=== PATIENT | male | born 1950 | race Caucasian/White ===

== ENCOUNTER 2023-06-24 14:20 | Outpatient (OUT) | payer MEDICARE, OTHER, SELFPAY ==
[2023-06-24 15:01] LABS: INR 1.12; Partial Thromboplastin Time 31.4 sec (22.3-36.2); Prothrombin Time 11.8 sec (9.0-11.6)
[2023-06-24 15:07] LABS: Basophils Absolute Auto 0.1 10^3/uL (0.0-0.1); Basophils Percent Auto 0.6 % (0.2-2.0); Eosinophils Absolute Auto 0.1 10^3/uL (0.0-0.7); Eosinophils Percent Auto 1.1 % (0.9-7.0); Hematocrit 51.2 % (42.0-54.0); Hemoglobin 16.9 g/dL (14.0-18.0); Immature Granulocytes Abs Auto 0.02 10^3/uL (0.00-0.03); Immature Granulocytes Pct Auto 0.2 % (0.0-0.5); Lymphocytes Absolute Auto 1.6 10^3/uL (1.2-3.8); Lymphocytes Percent Auto 18.3 % (20.5-60.0); Mean Corpuscular Hemoglobin 31.1 pg (25.9-34.0); Mean Corpuscular Volume 94.3 fL (80.0-94.0); Mean Platelet Volume 11.4 fL (9.5-13.5); Monocytes Absolute Auto 1.3 10^3/uL (0.3-0.8); Monocytes Percent Auto 14.2 % (1.7-12.0); Neutrophils Absolute Auto 5.9 10^3/uL (1.4-6.5); Neutrophils Percent Auto 65.6 % (43.0-75.0); Platelet Count 240 10^3/uL (150-450); Red Blood Count 5.43 10^6/uL (4.70-6.10); Red Cell Distribution Width 14.1 % (11.0-15.0)
[2023-06-24 15:25] LABS: Alanine Aminotransferase 23 U/L (16-63); Albumin Globulin Ratio 0.6; Albumin Level 3.1 g/dL (3.4-5.0); Alkaline Phosphatase 144 U/L (46-116); Aspartate Amino Transferase 25 U/L (15-37); BUN Creatinine Ratio 9.4; Bilirubin Total 1.2 mg/dL (0.2-1.0); Calcium 9.3 mg/dL (8.5-10.1); Chloride 95 mmol/L (98-107); Estimated GFR (African America >60 (>=60); Estimated GFR (Non-African Ame >60 (>=60); Globulin 4.8 g/dL; Glucose 67 mg/dL (74-106); Sodium 133 mmol/L (136-145); Total Protein 7.9 g/dL (6.4-8.2)
== END 2023-06-24 14:21 | disposition home or self-care (01) ==
LOC: LAB 14:26
PROVIDERS: PCP Internal Medicine; Visit Provider Internal Medicine
DX: K62.5 Hemorrhage of anus and rectum (principal); I10 Essential (primary) hypertension; E55.9 Vitamin D deficiency, unspecified
CPT/HCPCS: 36415; 80053; 82306; 85025; 85610; 85730

== ENCOUNTER 2023-07-01 07:39 | Outpatient (OUT) | payer MEDICARE, OTHER, SELFPAY ==
--- OUTSIDE RECORDS SUMMARY | 2023-07-01 07:42 | XMS_ITS | CCD ---
Author Name Unknown Address [address] [place] [address] Organization [facility] Care Team Providers Care Testing Projects Administrator Name Role Phone SHAIKH GALAN Attending Unavailable TRISTEN FUCHS Unavailable Encounters Encounter Date Encounter Type Care Provider Facility Start: 06-24-2023 End: 06-24-2023 ambulatory SHAIKH ANGELIA Not Available Start: 04-29-2023 End: 04-29-2023 ambulatory TRISTEN FUCHS Not Available Payers Date Payer Category Payer Unknown [id number] 2015 Medicare [id number] 1950 Unknown [id number] 2.16.84 [id number] 1950 Unknown [id number] Summary Purpose Family History No Family History Records Found Advance Directives No Advanced Directives Records Found Additional Source Comments (unrecognized sect ion and content) No Status Records Found INFORMATION SOURCE (unrecogn ized section and content) DATE CREATED AUTHOR 06/25/2023 [facility] EPIC FOR RECORDS PERTAINING TO PATIENTS WHO ARE OR HAVE BEEN ENROLLED IN A CHEMICAL DEPENDENCY/SUBSTANCEABUSE PROGRAM, SOME INFORMATION MAY BE OMITTED. This clinical summary was aggregated from multiple sources. Caution should be exercised in using it in the provision of clinical care. This summary normalizes information from multiple sources, and as a consequence, information in this document may materially change the coding, format and clinical context of patient data. In addition, data may be omitted in some cases. CLINICAL DECISIONS SHOULD BE BASED ON THE PRIMARY CLINICAL RECORDS. [facility] [employer] provides no warranty or guarantee of the accuracy or completeness of information in this document.
--- NOTE | 2023-07-01 07:48 | US_ITS ---
The [address] [address] Patient Name: RHODA RIVAS MRN: [id number] date: 1950 Sex: M Assigned Patient Location: US Current Patient Location: US Accession/Order Number: [id number] Exam Date: 07/01/2023 07:50 Report Date: 07/01/2023 09:02 At the request of: SHAIKH ANGELIA Procedure: US right upper quadrant EXAM: US right upper quadrant HISTORY: . Alcoholic Cirrhosis Of Liver K70.30 . COMPARISON: None. TECHNIQUE: Grayscale and color imaging was performed FINDINGS: The pancreas is grossly unremarkable. Scanning of the liver demonstrates heterogeneity of echotexture of the liver. There is slight nodularity of the liver surface. The liver is normal in size. Color-flow is noted in the portal and hepatic veins. Within the right lobe the liver there is a 2.7 x 1.3 x 0.8 cm hyperechoic focus with shadowing most consistent with a calcification. The gallbladder appears normal with no stones or sludge identified. No gallbladder wall thickening is noted. Common bile duct measures 3 mm. Right kidney measures 10.1 x 5 x 4.5 cm no solid renal cortical masses or hydronephrosis is noted. No fluid is noted in the right upper quadrant. US/US right upper quadrant IMPRESSION: 1. Liver is heterogeneous in its echotexture and there is slight nodularity of the liver surface suggesting diffuse hepatocellular disease such as cirrhosis. There is a 2.7 x 0.8 cm hyperechoic area in the right lobe liver with shadowing most consistent with a calcification. 2. The remainder of the right upper quadrant was unremarkable. Electronically authenticated by: DEYVI SANTIAGO Date: 07/01/2023 09:02
== END 2023-07-01 07:40 | disposition home or self-care (01) ==
LOC: US 07:39
PROVIDERS: PCP Internal Medicine; Visit Provider Internal Medicine
DX: K70.30 Alcoholic cirrhosis of liver without ascites (principal)
CPT/HCPCS: 76705

== ENCOUNTER 2023-08-19 14:36 | Outpatient (OUT) | payer MEDICARE, OTHER, SELFPAY ==
[2023-08-19 15:22] LABS: Anion Gap 8.7; Calcium 8.8 mg/dL (8.5-10.1); Chloride 98 mmol/L (98-107); Estimated GFR (African America >60 (>=60); Estimated GFR (Non-African Ame >60 (>=60); Glucose 85 mg/dL (74-106); Potassium 3.7 mmol/L (3.5-5.1); Sodium 135 mmol/L (136-145)
== END 2023-08-19 14:37 | disposition home or self-care (01) ==
LOC: LAB 14:37
PROVIDERS: PCP Internal Medicine; Visit Provider Internal Medicine
DX: E87.6 Hypokalemia (principal)
CPT/HCPCS: 36415; 80048

== ENCOUNTER 2024-01-19 12:31 | Outpatient (OUT) | payer MEDICARE, OTHER, SELFPAY ==
--- OUTSIDE RECORDS SUMMARY | 2024-01-19 12:51 | XMS_ITS | CCD ---
Author Organization [facility] Care Team Providers Care Quality Assurance Supervisor Name Role Phone MD Ean Whaley Attending Provider NON STAFF Primary Care Provider Unavailabl e NON STAFF Primary Care Unavailable Ena Whaley Attending Unavailable Ena Whaley Admitting Unavailable SHAIKH GALAN Attending Unavailable TRISTEN FUCHS Attending Unavailable TRISTEN FUCHS Attending Unavailable SHAIKH GALAN Attending Unavailable SHAIKH GALAN Attending Unavailable TRISTEN FUCHS Attending Unavailable Medications Current Medications Medication Drug Class(es) Dates Sig (Normalized) Sig (Original) ergocalciferol 1.25 mg oral capsule (1 source) Provitamin D2 Compound Start: 08-26-2023 take 1250 ug by mouth once daily Ergocalciferol (Vitamin D2) Active 1250 MCG PO Daily August 26, 2023 12:00am hydroCHLOROthiazide 25 mg / valsartan 320 mg oral tablet (1 source) Thiazide Diuretic, Angiotensin 2 Receptor Ortega Start: 08-26-2023 take 1 tablet by mouth once daily Valsartan-Hydrochl orothiazide Active 1 TAB PO Daily August 26, 2023 12:00am spironolactone 25 mg oral tablet (1 source) Aldosterone Antagonist Start: 08-26-2023 take 25 mg by mouth once daily Spironolactone Active 25 MG PO Daily August 26, 2023 12:00am Results Test Name Value Interpretation Reference Range Facil kevon Joey 08-26-2023 L Specimen: [id number] Received: 08/26/23 Status: JEFF Hamilton Num: [id number] Spec Type: Surgical Subm Dr: Ena Whaley MD Tissues: A Colon Biopsy (TRANSV POLYP) B Colon Biopsy (DESC POLYP) C Colon Biopsy (SIGMOID POLYP) Procedures: HE/6, Gross/Micro L4/3 Age/ Patient Sex Location Account Attending Physician Rhoda Rivas 73/M [id number] Ena Whaley MD SPEC NUM: RECD: 08/26/23 STATUS: JEFF HAMILTON NUM: [id number] ASIA: 08/26/23- SUBM DR: Ena Whaely MD ENTERED: 08/26/[address] [facility] DR: SPEC TYPE: Surgical DEPT: S ORDERED: HE/6, Gross/Micro L4/3 ORDERED: HE/6, Gross/Micro L4/3 Pathological Diagnosis A, transverse colon polyp biopsy removal: -Multiple fragments of tubular adenoma without high-grade dysplasia B, descending colon polyp biopsy: -Tubular adenoma in at least 1 larger fragment C, sigmoid polyps biopsies: -Small hyperplastic polyp(s) of the early serrated glandular type in at least 2 fragments Clinical Information Colon polyps Gross Description A. Received in formalin labeled with the patient's name, date of and transverse polyp are multiple looney tissues admixed with fecal material, measuring 2.2 x 0.7 x 0.4 cm in aggregate. Entirely submitted in one cassette labeled A1. B. Received in formalin labeled with the patient's name, date of and descending polyp are two looney tissues measuring 0.2 cm and 0.5 x 0.3 x 0.2 cm. Entirely submitted in one cassette labeled B1. ---- Specimen: Received: 08/26/23 Status: JEFF Hamilton Num: [id number] Spec Type: Surgical Subm Dr: Ena Whaley MD Tissues: A Colon Biopsy (TRANSV POLYP) B Colon Biopsy (DESC POLYP) C Colon Biopsy (SIGMOID POLYP) Procedures: HE/6, Gross/Micro L4/3 ---- Patient: Rhoda Rivas [id number] (Continued) ---- Specimen: [id number] Received: 08/26/23 (Continued) Gross Description (Continued) Signed (signature on file) Evans Hart MD 08/27/231802 ---- Specimen: [id number] Received: 08/26/23 Status: JEFF Villasenor Num: [id number] Spec Type: Surgical Subm Dr: Ena Whaley MD Tissues: A Colon Biopsy (TRANSV POLYP) B Colon Biopsy (DESC POLYP) C Colon Biopsy (SIGMOID POLYP) Procedures: HE/6Marisol/Carol L4/3 ---- Patient: Rhoda Rivas [id number] (Continued) ---- Specimen: [id number] Received: 08/26/23 (Continued) Gross Description (Continued) C. Received in formalin labeled with the patient's name, date of and sigmoid polyps (three) are three looney tissues ranging from 0.3 x 0.3 x 0.1 cm to 0.4 x 0.3 x 0.1 cm. Entirely submitted in one cassette labeled C1. CPT Codes 20940b3 ---- ---- Specimen: [id number] Received: 08/26/23 Status: JEFF Hamilton Num: [id number] Spec Type: Surgical Subm Dr: Ena Whaley MD Tissues: A Colon Biopsy (TRANSV POLYP) B Colon Biopsy (DESC POLYP) C Colon Biopsy (SIGMOID POLYP) Procedures: HE/6, Gross/Micro L4/3 ---- Patient: Rhoda Rivas [id number] (Continued) ---- Signed (signature on file) Evans Hart MD 08/27/23 180 [facility] Vital Signs Date Time Vital Sign Value Performing Clinician Faci edmundoy 08-26-2023 11:12-0400 Diastolic blood pressure 70 mm[Hg] MD Ena Whaley Work Phone: [facility] 08-26-2023 11:12-0400 Heart rate 67 /min MD Ena Whaley Work Phone: [facility] 08-26-2023 11:12-0400 Respiratory rate 18 /min MD Ena Whaley Work Phone: [facility] 08-26-2023 11:12-0400 SaO2% (BldA) [Mass fraction] 98 % MD Ena Whaley Work Phone: [facility] 08-26-2023 11:12-0400 Systolic blood pressure 149 mm[Hg] MD Ena Whaley Work Phone: [facility] 08-26-2023 08:35-0400 Body height 190.5 cm MD Ena Whaley Work Phone: [facility] 08-26-2023 08:35-0400 Body weight 133.8 kg MD Ena Whaley Work Phone: [facility] Encounters Encounter Date Encounter Type Care Provider Facility Start: 11-18-2023 End: 11-18-2023 ambulatory TRISTEN FUCHS Not Available Start: 10-22-2023 End: 10-22-2023 ambulatory TEIXEIRA FAWWAD Not Available Start: 08-26-2023 End: 08-26-2023 ambulatory NON STAFF Facility:[facility] Start: 08-26-2023 Non-patient / Non-visit MD Ena Whaley Work Phone: [facility] Physician [facility] Work Phone: Start: 08-26-2023 End: 08-26-2023 Admission to same day surgery center MD Ena Whaley Work Phone: [facility] Work Phone: Start: 08-26-2023 End: 08-26-2023 ambulatory NON STAFF [facility] Work Phone: Start: 08-18-2023 End: 08-18-2023 ambulatory SHAIKH WARREND Not Available Start: 08-05-2023 End: 08-05-2023 ambulatory TRISTEN FUCHS Not Available Start: 07-22-2023 Non-patient / Non-visit MD Ena Whaley Work Phone: [facility] Physician [facility] Work Phone: Start: 07-16-2023 Non-patient / Non-visit MD Ena Whaley Work Phone: [facility] Physician [facility] G[facility] Work Phone: Start: 06-24-2023 End: 06-24-2023 ambulatory TEIXEIRA FAWWAD Not Available Start: 04-29-2023 End: 04-29-2023 ambulatory TRISTEN FUCHS Not Available Procedures Date Procedure Procedure Detail Performing Clinician Start: 08-26-2023 Colonoscopy MD Ena durand Work Phone: Plan of Treatment Date Care Activity Detail Author Start: 08-26-2023 [facility] Patient Education Colon polyps H emorrhoids (DC) Diverticulosis (DC) [facility] Work Phone: Payers Date Payer Category Payer Self-pay 2021 Unknown [id number] 2015 Medicare [id number] [facility] [id number] 1950 Unknown [id number] 2.16.84 [id number] 1950 Unknown [id number] 2.16.84 [id number] 1950 Unknown [id number] 2.16.84 [id number] 1950 Unknown [id number] 2.16.84 [id number] 1950 Unknown [id number] 2.16.84 [id number] 1950 Unknown [id number] Unknown [id number] 2.16.8 [id number] Social History Date Type Detail Facility Start: 08-26-2023 Tobacco smoking stat [facility] Smoker (finding) [facility] Start: 1950 Sex Assigned At Male F [facility] Goals Date Patient Goal Desired Activity /State Procedure note 08-26-2023 Note Date & Type Note Facility 08-26-2023 Procedure note [facility] Evaluation note Note Date & Type Note Facility Evaluation note No assessment information availa ble [facility] Work Phone: History and physical note Note Date & Type Note Facility History and physical note Note Date/Time August 26, 2023 10:09am [facility] [address] [place] [address] Gastroenterology H&P Signed Patient: Rhoda Rivas MR#: [id number] : 1950 Acct:[id number] Age/Sex: 73 / M Adm Date: 4 Loc: Room: Type: [facility] Attending Dr: Ena Whaley MD Copies to: NON STAFF Ena Whaley MD~ Date of Service: 08/26/2023 HISTORY & PHYSICAL: Patient's history with special attention to the cardiovascular, pulmonary systems and the current problem was reviewed with the patient immediately prior to the procedure. Present medications and doses reviewed in the EMR. Allergies and pertinent laboratory tests were also reviewedat this time in the EMR. The physical examination, as below, was then performed. Indication, assessment and HPI: 73-year-old man with history of colonic polyps here for surveillance colonoscopy Family history of GI malignancy? No PHYSICAL EXAMINATION Mouth and Pharynx : Moist mucus membranes, normal dentition Cardiac: Regular rate, regular rhythm Pulmonary: Clear to auscultation bilaterally, no wheezing Neurological: Alert and oriented x3, no focal deficits noted Abdomen: Abdomen soft, non-tender REVIEW OF SYSTEMS Constitutional: Denies malaise, fevers Cardiovascular: Denies chest pain, palpitations Respiratory: Denies shortness of breath, wheezing Gastrointestinal: Per HPI Genitourinary: Denies dysuria, polyuria Musculoskeletal: Denies joint swelling, joint stiffness Neurological: Denies numbness, tingling Integumentary: Denies rashes, skin lesions Endocrine: Denies fatigue, weight loss Written informed consent obtained from the patient. Risks (including but not limited to perforation, infection, bloating, bleeding, need for emergent surgeryand loss of life), benefits and alternatives explained and questions answered. The patient verbalized understanding. Based on history patient is an appropriate candidate for the procedure. Ena Whaley M.D. Documented By: Ena Whaley MD 08/26/23 0959 Signed By: <Electronically signed by Ena Whaley MD> 08/26/23 1009 [facility] Work Phone: Hospital Discharge instructions Note Date & Type Note Facility Hospital Discharge instructions Additional Instructions DISCHARGE INSTRUCTIONS FOR COLONOSCOPY WHAT TO EXPECT: - You may feel full, gassy or cramping after your procedure. In some cases, this may be from a few hours to a day. Walking may help relieve the discomfort. - If you have polyp(s) removed you may note some minor bloody discharge after your first bowel movements. - You should begin to recover from anesthesia within 1 hour of the procedure, however may feel groggy for the next 24 hours. DO's AND DON'Ts: - Call your doctor right away if you have a hard abdomen, severe pain, are passing lots of bright red blood or clots. - Call your doctor if you develop any rashes, hives or difficulty breathing. - Let your doctor know if you have not had a bowel movement by 3 days after your procedure. - If you take 81 mg aspirin for your heart it is safe to resume this medication. - If you take other blood thinner medications your doctor will instruct you when these can safely be resumed. - Do NOT drive for 24 hours. - Do NOT operate machinery such as power tools, lawn mowers, snow blowers, sewing machines, etc. for 24 hours. - Avoid alcoholic beverages and drugs for allergies, nerves, or sleep. - Do NOT stay alone. Do NOT leave your child unattended. - Do NOT make important personal or business decisions or sign any legal documents. - Eat solid foods and drink liquids in smaller amounts than usual until normal appetite returns. If you should experience an upset stomach, liquids high in sugar content (soda, Boby-Aid, non-acid juices) are recommended. - You can resume normal activities tomorrow. FOLLOW UP & RECOMMENDATIONS: -Notify the doctor if you have any problems. -Repeat colonoscopy in 3 years. -Follow up with PCP. -Office number [phone]. [facility] Work Phone: Chief Complaint and Reason for Visit Chief Complaint Amb Documentation hx of colon polyps hx of colon polyps Family History No Family History Records Found Relationship Condition Age at Onset Recorded Date/T farzana sister Diabetes mellitus Unknown Hypertension Unknown father Malignant neoplasm of lung Unknown Not Specified Hypertension Unknown Advance Directives No Advanced Directives Records Found Advance Directive Response Recorded Date/ Time Advance Directives No July 2:44pm Summary Purpose Additional Source Comments Care Teams (unrecognized sec tion and content) Team Status: Active Member Role Status Dates NON STAFF Primary Care Provider Active Team Status: Active Member Role Status Dates Ena Whaley MD Attending Provider Active Start: July 16, 2023 Team Status: Active Member Role Status Dates Sofía Kylah Attending Provider Active Start : July 22, 2023 Team Status: Inactive Member Role Status Dates Ena Whaley MD Attending Provider Active Start: August 26, 2023 End: August 26, 2023 NON STAFF Primary Care Provider Active Start: August 26, 2023 End: August 26, 2023 Team Status: Active Member Role Status Dates Ena Whaley MD Attending Provider, Other Provider Act hailey Start: August 26, 2023 NON STAFF Primary Care Provider Active Start: August 26, 2023 (unrecognized sect ion and content) No Status Records FoundNo Status Records Found INFORMATION SOURCE (unrecogn ized section and content) DATE CREATED AUTHOR 08/29/2023 [facility] DATE CREATED AUTHOR MELY YIP 11/20/2023 [facility] EPIC FOR RECORDS PERTAINING TO PATIENTS [...] BE BASED ON THE PRIMARY CLINICAL RECORDS. [facility] [employer] provides no warranty or guarantee of the accuracy or completeness of information in this document.
[2024-01-19 16:00] LABS: Chloride 100 mmol/L (98-107); Glucose 78 mg/dL (74-106); Potassium 4.2 mmol/L (3.5-5.1); Sodium 135 mmol/L (136-145)
[2024-01-19 16:01] LABS: Alanine Aminotransferase 24 U/L (16-63); Albumin Globulin Ratio 0.7; Albumin Level 3.1 g/dL (3.4-5.0); Alkaline Phosphatase 128 U/L (46-116); Aspartate Amino Transferase 28 U/L (15-37); BUN Creatinine Ratio 12.4; Bilirubin Total 1.3 mg/dL (0.2-1.0); Calcium 9.1 mg/dL (8.5-10.1); Estimated GFR (African America >60 (>=60); Estimated GFR (Non-African Ame >60 (>=60); Globulin 4.3 g/dL; Total Protein 7.4 g/dL (6.4-8.2)
[2024-01-19 16:12] LABS: Carbon Dioxide 30.2 mmol/L (21.0-32.0)
== END 2024-01-19 12:32 | disposition home or self-care (01) ==
LOC: LAB 12:33
PROVIDERS: PCP Internal Medicine; Visit Provider Internal Medicine
DX: E87.6 Hypokalemia (principal); I10 Essential (primary) hypertension; K70.30 Alcoholic cirrhosis of liver without ascites
CPT/HCPCS: 36415; 80053

== ENCOUNTER 2025-02-25 09:41 | Outpatient (OUT) | payer MEDICARE, OTHER, SELFPAY ==
--- OUTSIDE RECORDS SUMMARY | 2025-02-25 09:49 | XMS_ITS | Encounter Summary ---
Author Organization [facility] Address [address] [place] [address] Care Team Providers Care Environmental Health Nurse Name Role Phone Shaikh ELOY Rosen Primary Care Provider [phone] Jose Raul Valenzuela MD Primary Care Provider [phone] Ale Cam MONEY ROOM SUPERVISOR Unavailable Reason for Visit * Reason Comments Med Refill Encounter Details Date Type Department Care Team (Late Contact Info) Description 08/18/2023 Refill [facility] [address] [place] [address] Shaikh Rosen MD [address] [place] [address] Primary hypertension ; Alcoholic cirrhosis of liver without ascites (HCC) Social History Tobacco Use Types Packs/Day Years Used Date Smoking Tobacco: Every Day Cigarettes 1 45 Passive Smoke Exposure: Current Smokeless Tobacco: Never Alcohol Use Standard Drinks/Week Comments Yes 21 (1 standard drink = 0.6 oz pu re alcohol) daily PHQ-2 Answer Date Recorded Patient Health Questionnaire-2 Score 0 06/24/2023 Sex and Gender Information Value Date Recorded Sex Assigned at Not on file Legal Sex Male 3:50 PM EDT Gender Identity Not on file Sexual Orientation Not on file documented as of this encounter Plan of Treatment Upcoming Encounters Date Type Department Care Team (Late Contact Info) Description 04/05/2025 1:15 PM EST Procedure Visit [facility] [address] [place] [address] Chapin Roman, DPM [address] [place], [place] [phone] documented as of this encounter Visit Diagnoses Diagnosis Primary hypertension Unspecified essential hypertension Alcoholic cirrhosis of liver without ascites (HCC) documented in this encounter Care Teams Environmental Health Nurse Relationship Specialty Start Date End Date Shaikh Rosen MD [address] [place] [phone] PCP - General Internal Medicine 06/24/23 01/04/24 Jose Raul Valenzuela MD [address] [place] [place] [phone] PCP - General Family Medicine 01/05/24 11/30/24 Ale Cam NP [address] [place] [place] [phone] Nurse Practitioner Family Medicine 01/05/24 11/30/24 documented as of this encounter
--- OUTSIDE RECORDS SUMMARY | 2025-02-25 09:49 | XMS_ITS | Encounter Summary ---
Author Organization [facility] Address [address] [place] [address] Care Team Providers Care Carpet Sewer Name Role Phone Shaikh ELOY Rosen Primary Care Provider [phone] Jose Raul Valenzuela MD Primary Care Provider [phone] Ale Cam PRECISION GRINDER Unavailable [phone] Encounter Details Date Type Department Care Team (Late st Contact Info) Description 07/01/2023 Clinisync Result Encounter [facility] External Department Unsolicited Shaikh Rosen MD [address] [place] [address] Social History Tobacco Use Types Packs/Day Years Used Date Smoking Tobacco: Every Day Cigarettes 1 45 Smokeless Tobacco: Never Alcohol Use Standard Drinks/Week [...] Encounters Date Type Department Care Team (Late st Contact Info) Description 04/05/2025 1:15 PM EST Procedure Visit [facility] [address] [place] [phone] Chapin Roman DPM [address] [place], [place] [id number] documented as of this encounter Procedures Procedure Name Priority Date/Time Associated Diagnosis Comments US RIGHT UPPER QUADRANT 07/01/2023 9:02 AM EST documented in this encounter Results * US RIGHT UPPER QUADRANT (07/01/2023 9:02 AM EST) Anatomical Region Laterality Modality Other 07/01/2023 9:02 AM EST Narrative 07/01/2023 9:05 [place] [address] Ultrasound Report Signed Patient: GLENN RIVAS MR#: [id number] : 1950 Acct:[id number] Age/Sex: 73 / M ADM Date: 07/01/23 Loc: US Attending Dr: Shaikh Silas Moratyaa Ordering Physician: Shaikh Hood Rosen Date of Service: 07/01/23 Procedure(s): US right upper quadrant Accession Number(s): [id number] cc: Shaikh Hood Rosen [place] [address] Patient Name: GLENN RIVAS MRN: [id number] date: 1950 Sex: M Assigned Patient Location: US Current Patient Location: Accession/Order Number: [id number] Exam Date: 07/01/2023 07:50 Report Date: 07/01/2023 09:02 At the request of: SHAIKH SILAS Procedure: US right upper quadrant EXAM: US right upper quadrant HISTORY: . Alcoholic Cirrhosis Of Liver K70.30 . COMPARISON: None. TECHNIQUE: Grayscale and color imaging was performed FINDINGS: The pancreas is grossly unremarkable. Scanning of the liver demonstrates heterogeneity of echotexture of the liver. There is slight nodularity of the liver surface. The liver is normal in size. Color-flow is noted in the portal and hepatic veins. Within the right lobe the liver there is a 2.7 x 1.3 x 0.8 cm hyperechoic focus with shadowing most consistent with a calcification. The gallbladder appears normal with no stones or sludge identified. No gallbladder wall thickening is noted. Common bile duct measures 3 mm. Right kidney measures 10.1 x 5 x 4.5 cm no solid renal cortical masses or hydronephrosis is noted. No fluid is noted in the right upper quadrant. US/US right upper quadrant IMPRESSION: 1. Liver is heterogeneous in its echotexture and there is slight nodularity of the liver surface suggesting diffuse hepatocellular disease such as cirrhosis. There is a 2.7 x 0.8 cm hyperechoic area in the right lobe liver with shadowing most consistent with a calcification. 2. The remainder of the right upper quadrant was unremarkable. Electronically authenticated by: DEYVI BALLARD Date: 07/01/2023 09:02 Dictated By: Deyvi Ballard M.D. Signed By: 07/01/23904 DD/ 1 TD/TT: Tavern Car Attendant: Procedure Note Radiology, Radiologist, - 07/01/2023 [place] [address] Ultrasound Report Signed Patient: GLENN RIVAS JMR#: [id number] : 1950cct:[id number] Age/Sex: 73 / MADM Date: 07/01/23 Loc: US Attending Dr: Shaikh Silas Morataya Ordering Physician: Shaikh Hood Rosen Date of Service: 07/01/23 Procedure(s): US right upper quadrant Accession Number(s): [id number] cc: Shaikh Hood Rosen [place] [address] Patient Name: GLENN RIVAS MRN: [id number] date: 1950 Sex: M Assigned Patient Location: US Current Patient Location: US Accession/Order Number: [id number] Exam Date: 07/01/2023 07:50 Report Date: 07/01/2023 09:02 At the request of: SHAIKH SILAS Procedure: US right upper quadrant EXAM: US right upper quadrant HISTORY: . Alcoholic Cirrhosis Of Liver K70.30 . COMPARISON: None. TECHNIQUE: Grayscale and color imaging was performed FINDINGS: The pancreas is grossly unremarkable. Scanning of the liver demonstrates heterogeneity of echotexture of theliver. There is slight nodularity of the liver surface. The liver is normal insize. Color-flow is noted in the portal and hepatic veins. Within the right lobethe liver there is a 2.7 x 1.3 x 0.8 cm hyperechoic focus with shadowing most consistent with a calcification. The gallbladder appears normal with no stones or sludge identified. No gallbladder wall thickening is noted. Common bile duct measures 3 mm. Right kidney measures 10.1 x 5 x 4.5 cm no solid renal cortical masses or hydronephrosis is noted. No fluid is noted in the right upper quadrant. US/US right upper quadrant IMPRESSION: 1. Liver is heterogeneous in its echotexture and there is slightnodularity of the liver surface suggesting diffuse hepatocellular disease such ascirrhosis. There is a 2.7 x 0.8 cm hyperechoic area in the right lobe liver with shadowing most consistent with a calcification. 2. The remainder of the right upper quadrant was unremarkable. Electronically authenticated by: DEYVI BALLARD Date: 07/01/2023 09:02 Dictated By: Deyvi Ballard M.D. Signed By:07/01/23904 DD/ 1 TD/TT: Tavern Car Attendant: Shaikh Silas [facility] Final Result documented in this encounter Visit Diagnoses Not on filedocumented in this encounter Care Teams Carpet Sewer Relationship Specialty Start Date End Date Shaikh Rosen MD [address] [place] [address] PCP - General Internal Medicine 06/24/23 01/04/24 Jose Raul Valenzuela MD [address] [place] [address] PCP - General Family Medicine 01/05/24 11/30/24 Ale Cma NP [address] [place] [address] Nurse Practitioner Family Medicine 01/05/24 11/30/24 documented as of this encounter
--- OUTSIDE RECORDS SUMMARY | 2025-02-25 09:49 | XMS_ITS | Clinical Summary ---
Author Organization [facility] Address [address] [place] [address] Care Team Providers Care Sheet Heater Helper Name Role Phone Unavailable Primary Care Provider Unavailabl e Allergies No known active allergies Medications albuterol HFA (Ventolin HFA) 90 mcg/act inhalerIndication s:Wheezing Inhale 2 puffs every 4 (four) hours if needed for wheezing 18 g 11 5 01/14/20 26 Active amLODIPine (Norvasc) 5 MG tabletIndications :Primary hypertension Take 1 tablet (5 mg) by mouth Daily 90 tablet 1 5 Active calcitriol (Rocaltrol) 0.25 MCG capsuleIndication s:Vitamin D deficiency,Alcoho l use disorder Take 1 capsule (0.25 mcg) by mouth Daily 90 capsule 2 5 Active cyanocobalamin (Vitamin B-12) 50 MCG tabletIndications :Alcohol use disorder Take 1 tablet (50 mcg) by mouth Daily 90 tablet 2 5 Active spironolactone (Aldactone) 50 MG tabletIndications :Primary hypertension,Alco holic cirrhosis of liver without ascites (HCC) Take 1 tablet (50 mg) by mouth Daily 90 tablet 1 5 Active potassium chloride CR (Klor-Con M10) 10 MEQ ER tabletIndications :Hypokalemia Take 1 tablet (10 mEq) by mouth Daily Do not crush or chew. 90 tablet 1 5 Active furosemide (Lasix) 20 MG tabletIndications :Primary hypertension,Alco holic cirrhosis of liver without ascites (HCC) Take 1 tablet (20 mg) by mouth Daily 90 tablet 1 5 Active Active Problems Problem Noted Date Diagnosed Date Suspected chronic obstructiv e pulmonary disease based on initial evaluation 04/22/2024 Assessment & Plan (04/22/2024 2:02 PM EST): Current 1 ppd smoker Has been smoking for 60 years. Has never had PFT's or Low dose CT scan. Not interested at this time. Expiratory wheezes noted on assessment Likely has COPD or Emphysema- will order PRN Albuterol at this time. Pt declines routine daily maintenance inhaler such as LABA+ICS or LAMA +ICS. Discussed with pt if he is requiring rescue inhaler frequently more than twice per week to please let me know. Low back strain 01/24/2024 Assessment & Plan (01/24/2024 9:04 AM EDT): Pulled muscle in lower lumbar region of back recently, carrying cases of water into the house. Denies: Loss of bowel or bladder Numbness/tingling Loss of sensation Declines imaging or further testing at this time. Conservative measures currently. Careful consideration for medication management d/t alcohol use. Pt declines med management at this time. Requests temporary handicap placard. Given RX for temporary card, less than 6 months. Hypokalemia 08/18/2023 Assessment & Plan (01/22/2024 1:33 PM EDT): 4.2 on lab work form 01/19/24 Continue Potassium as ordered. Assessment & Plan (08/18/2023 1:46 PM EDT): Potassium 3.0 --> added aldactone. Recheck BMP HTN (hypertension) 06/24/2023 Assessment & Plan (04/22/2024 1:47 PM EST): Currently taking amlodipine Spironolactone Lasix Does not Check BP at home; BP is good in the office today. Denies orthostatic changes, dizziness, cough, shortness of breath, swelling in extremities. Continue current regimen. Given BP log, advised pt to record BP and bring log back with them to next visit. Assessment & Plan (01/22/2024 1:32 PM EDT): looks good today in the office. Taking Amlodipine 5mg Spironlactone 50mg Lasix 20mg Denies orthostatic changes Denies edema to extremities Continue current regimen Assessment & Plan (10/22/2023 3:29 PM EDT): At goal. Discontinue Valsartan/HCTZ Start on low dose amlodipine/aldactone and lasix Follow up with home BP log. CMP in one month Assessment & Plan (08/18/2023 1:44 PM EDT): Hx of HTN - diagnosed over 20 years ago. Does not check his blood pressure at home. On average less than 140/80 Above goal in office today. Tolerating Anti hypertensive w/o adverse effects. Denies lightheadedness, dizziness, syncope, presyncope. Patient encouraged to continue with home BP monitoring and call office if he experiences orthostatic symptoms or persistently elevated BP. C/w valsartan/hydrochlorothiazide for now as he has over 90 day supply of it. Will add Aldactone to help with HTN and LE edema due to hx of liver cirrhosis Assessment & Plan (06/24/2023 1:33 PM EST): Hx of HTN - diagnosed over 20 years ago. Does not check his blood pressure at home. On average less than 140/80 Tolerating Anti hypertensive w/o adverse effects. Denies lightheadedness, dizziness, syncope, presyncope. Patient encouraged to continue with home BP monitoring and call office if he experiences orthostatic symptoms or persistently elevated BP. Will order CBC, CMP to ensure electrolytes and renal function is stable. C/w valsartan/hydrochlorothiazide as before for now. Encounter to establish care with new doctor 06/03 Assessment & Plan (06/24/2023 2:11 PM EST): New Patient, here to establish care. Reviewed medical, surgical and social hx. No old records available to review. Reviewed and updated medication list. He moved from [place] to be close to his family. He used to work in [employer] in [place]. Patient is experiencing/reporting bright red blood per rectum x 3 days now. Addressed separately. Alcohol use disorder 06/24/2023 Assessment & Plan (01/24/2024 8:54 AM EDT): Is currently still drinking; 3 drinks, 3-4 ounces per day; Drinks Vodka mixed with cranberry juice or Powerade. Declines interest ion quitting at this time. Educated on hazardous health effects of chronic health issues. Assessment & Plan (10/22/2023 3:28 PM EDT): Patient drinks alcohol daily. Usually hard liquor. Previously drank at least 12 oz daily. Now down to 10 oz. Slowly trying to cut down drinking due to risk of withdrawal. Encouraged to quit alcohol due to hx of Liver cirrhosis. Assessment & Plan (08/18/2023 1:45 PM EDT): Patient drinks alcohol daily. Usually hard liquor. Drinks at least 12 oz daily. Never had a DUI. Drinks at home. Now that he knows he has liver cirrhosis, he is thinking about quitting. He was reminded that he should slowly cut down drinking or he would have severe withdrawal from alcohol cessation. Assessment & Plan (06/24/2023 2:01 PM EST): Patient drinks alcohol daily. Usually hard liquor. Drinks at least 12 oz daily. Never had a DUI. Drinks at home. Not really interested in quitting. He does not think his drinking is a concern or something he will change about himself. Recommended cutting down alcohol use to the patient. Bright red blood per rectum 06/24/2023 Assessment & Plan (06/24/2023 2:00 PM EST): Reports bright red blood started 3 days ago when he strained hard during defecation. He reports seeing blood when he wipes after passing stool. It gradually improving,resolving. No prior hx of similar episode. Exam concerning for internal hemorrhoids. Will call in hydrocortisone suppository for when his symptoms recurred. Check CBC, CMP, PT INR, PTT. Refer to General Surgery. Vitamin D deficiency 06/24/2023 Assessment & Plan (01/24/2024 8:55 AM EDT): On vitamin D supplementation. Levels stable 6 months ago on last recheck. Assessment & Plan (06/24/2023 2:00 PM EST): On Vitamin D Supplementation Check Levels. Psoriasis (a type of skin inflammation) 06/24/19 Assessment & Plan (06/24/2023 2:02 PM EST): Hx of psoriasis with plaques noted over elbows, hand knuckles, left side of lower back. Not on any medication. Skin is very dry overall. Obtain records. Alcoholic cirrhosis of liver without ascites Assessment & Plan (04/22/2024 1:46 PM EST): Is currently still drinking; States he has only drank 3-4 times this month. Is starting to decrease intake. Drinks Vodka mixed with cranberry juice or Powerade. Declines interest ion quitting at this time. Educated on hazardous health effects of chronic health issues. Assessment & Plan (01/22/2024 1:32 PM EDT): Is currently still drinking; 3 drinks, 3-4 ounces per day; Drinks Vodka mixed with cranberry juice or Powerade. Declines interest ion quitting at this time. Educated on hazardous health effects of chronic health issues. Assessment & Plan (10/22/2023 3:25 PM EDT): Chronic alcohol abuse. Noted to have gynecomastia, abdominal obesity with dilated veins visible concerning for underlying portal hypertension. US c/w liver cirrhosis. Was seen by GI. Start on aldactone/lasix for volume control. discontinue hydrochlorothiazide and valsartan. Assessment & Plan (08/18/2023 1:44 PM EDT): Chronic alcohol abuse. Noted to have gynecomastia, abdominal obesity with dilated veins visible concerning for underlying portal hypertension. US c/w liver cirrhosis. Has an appt with GI Started on aldactone. Educated on alcohol cessation/abuse. Assessment & Plan (06/24/2023 2:01 PM EST): Chronic alcohol abuse. Noted to have gynecomastia, abdominal obesity with dilated veins visible concerning for underlying portal hypertension. He was told he has liver problem but he denies prior diagnosis of Liver Cirrhosis. Will order an US liver. Tobacco abuse 06/24/2023 Assessment & Plan (06/24/2023 2:03 PM EST): Smokes 1 PPD, over 50 years of pack year hx. Patient counseled on smoking/tobacco cessation. Patient educated on harmful effects of smoking cigarettes/tobacco including increased risk of cardiovascular diseases, chronic lung disease and multiple cancers. Not interested in quitting. H/O adenomatous polyp of colon 06/24/2023 Assessment & Plan (06/24/2023 2:05 PM EST): Reports last colonoscopy was 4 years ago with repeat scope planned in 3 years because of numerous polyps removed - upto 17 on last colonoscopy. Patient is being referred to Surgery for BRBPR for possible hemorrhoidal bleeding and will also benefit from repeat Colonoscopy. Chronic venous insufficiency of lower extremity 06/24/2023 Assessment & Plan (06/24/2023 2:11 PM EST): Reports hx of chronic venous insufficiency. I suspect concomitant underlying Liver Cirrhosis for which an US ordered this visit. Advised on lifestyle measures, keep legs elevated, use compression stockings. Obtain old records. Umbilical hernia without obstruction and without gangrene 06/24/2023 Assessment & Plan (08/18/2023 1:44 PM EDT): Chronic, unchanged. Hernia is non tender, reducible, soft. Patient educated on signs and symptoms that would warrant a surgical correction and to seek urgent care if he develops those symptoms. Assessment & Plan (06/24/2023 2:13 PM EST): Chronic, unchanged. Hernia is non tender, reducible, soft. Patient educated on signs and symptoms that would warrant a surgical correction and to seek urgent care if he develops those symptoms. Encounters Date Type Department Care Team Description 01/13/2025 Refill [facility] [address] [place] [address] Jose Raul Valenzuela MD Wheezing; Primary hypertension ; Vitamin D deficiency; Alcohol use disorder; Alcoholic cirrhosis of liver without ascites (HCC); Hypokalemia 01/13/2025 Refill [facility] [address] [place] [address] Jose Raul Valenzuela MD 01/11/2025 Refill [facility] [address] [place] [place] [address] Jose Raul Valenzuela MD Primary hypertension ; Alcoholic cirrhosis of liver without ascites (HCC); Hypokalemia 12/15/2024 1:30 PM EDT Ancillary Procedure [facility] [address] [place] [address] 12/15/2024 1:00 PM EDT Office Visit [facility] [address] [place] [address] Chapin Roman DPM Calcific tendonitis of foot, right (Primary Dx); Peroneal tendonitis, right; Pain in right foot; Difficulty walking 12/15/2024 Bamboo flowsheet [facility] [address] [place] [address] Chapin Roman DPM 12/15/2024 Travel 12/14/2024 Travel 12/02/2024 1:30 PM EDT Procedure Visit [facility] [address] [place] [address] Chapin Roman DPM Dermatophytosis of nail (Primary Dx); Dystrophic nail; Pain around toenail, right foot; Pain around toenail, left foot 12/02/2024 Bamboo flowsheet [facility] [address] [place] [address] Chapin Roman DPM 12/02/2024 Travel 12/01/2024 Travel from Last 3 Months Immunizations Immunization Administration Dates Next Due Influenza, seasonal, injectable, preservative fr ee 04/22/2024 Family History Medical History Relation Name Comments Hypertension Father Andrew Lung cancer Father Andrew Hypertension Mother Keila Relation Name Status Comments Father Andrew Mother Keila Social History Tobacco Use Types Packs/Day Years Used Date Smoking Tobacco: Every Day Cigarettes 0.5 45 Passive Smoke Exposure: Current Smokeless Tobacco: Never Tobacco Cessation:Ready to Q uit: Not Asked; Counseling Given: Not Answered Alcohol Use Standard Drinks/Week Comments Yes 21 (1 standard drink = 0.6 oz pu re alcohol) daily PHQ-2 Answer Date Recorded Patient Health Questionnaire-2 Score 0 01/22/2024 Sex and Gender Information Value Date Recorded Sex Assigned at Not on file Legal Sex Male 3:50 PM EDT Gender Identity Not on file Sexual Orientation Not on file Last Filed Vital Signs Vital Sign Reading Time Taken Comments Blood Pressure 136/72 04/22/2024 1:27 PM EST Pulse 86 04/22/2024 1:27 PM EST Temperature 35.7 C (96.2 F) 04/22/2024 1:27 PM EST Respiratory Rate 16 04/22/2024 1:27 PM EST Oxygen Saturation 95% 04/22/2024 1:27 PM EST Inhaled Oxygen Concentration - - Weight 133 kg (294 lb) 12/15/2024 12:54 PM EDT Height 190.5 cm (6' 3 ) 12/15/2024 12:54 PM EDT Body Mass Index 36.75 12/15/2024 12:54 PM EDT Plan of Treatment Upcoming Encounters Date Type Department Care Team (Late st Contact Info) Description 04/05/2025 1:15 PM EST Procedure Visit [facility] [address] [place] [phone] Chapin Roman DPM [address] [place], [place] [phone] Procedures Procedure Name Priority Date/Time Associated Diagnosis Comments XR FOOT 3+ VIEWS RIGHT Routine 12/15/2024 1:26 PM EDT Calcific tendonitis of foot, right Peroneal tendonitis, right Pain in right foot Difficulty walking from Last 3 Months Results * XR foot 3+ views right (12/15/2024 1:26 PM EDT) Anatomical Region Laterality Modality Lower Extremities, Foot Right Radiogra phic Imaging Narrative 12/15/2024 1:27 PM EDT Imaging Result: 3 views right foot: Weight-bearing: DP, oblique, lateral: 12/15/2024: Unremarkable for acute osseous or joint pathology. No distinct fractures or stress fractures are identified. Calcific deposition or along the styloid process at the insertion of the peroneus brevis tendon. Hindfoot cavus is appreciated. Arthritic changes through the midfoot appreciated. Chapin Roman DPM IMG XR PROCEDURES Final Resu lt from Last 3 Months Insurance MEDICARE [employer]
--- OUTSIDE RECORDS SUMMARY | 2025-02-25 09:49 | XMS_ITS | Encounter Summary ---
Author Organization [facility] Address [address] [facility] [place] [address] Care Team Providers Care Dock Worker Name Role Phone Shaikh ELOY Rosen Primary Care Provider [phone] Jose Raul Valenzuela MD Primary Care Provider [phone] Ale Cam INVESTIGATIVE REPORTER Unavailable [phone] Encounter Details Date Type Department Care Team (Late Contact Info) Description 08/06/2023 Orders Only [facility] [address] [facility] [place] [address] Shaikh Rosen MD [address] [place] [address] Social History Tobacco Use Types Packs/Day Years [...] PM EST Procedure Visit [facility] [address] [place] [address] Chapin Roman, DPM [address] [address] documented as of this encounter Procedures Procedure Name Priority Date/Time Associated Diagnosis Comments US VENOUS DUPLEX RIGHT UPPER Routine 07/01/2023 12:55 PM EST documented in this encounter Results * US VENOUS DUPLEX RIGHT UPPER (07/01/2023 12:55 PM EST) Anatomical Region Laterality Modality Radiographic Marina ging Shaikh Silas [facility] XR PROCEDURES Final Result documented in this encounter Visit Diagnoses Not on filedocumented in this encounter Care Teams Dock Worker Relationship Specialty Start Date End Date Shaikh Rosen MD [address] [place] [address] PCP - General Internal Medicine 06/24/23 01/04/24 Jose Raul Valenzuela MD [address] [place] [address] PCP - General Family Medicine 01/05/24 11/30/24 Ale Cam NP [address] [place] [address] Nurse Practitioner Family Medicine 01/05/24 11/30/24 documented as of this encounter
--- OUTSIDE RECORDS SUMMARY | 2025-02-25 09:50 | XMS_ITS | CCD ---
Author Organization [facility] Inform ion Partnership [facility] Care Team Providers Care Repairer General Name Role Phone MD Ena Whaley Attending Provider NON STAFF Primary Care Provider Unavailabl yemi NON STAFF Primary Care Unavailable Ena Whaley Attending Unavailable Ena Whaley Admitting Unavailable Jose Raul Valenzuela MD Primary Care Provider [phone] Ale Cam NP Unavailable Unavailable Primary Care Provider CHAPIN Bryant Attending Unavailable CHAPIN ROMAN Attending Unavailable ALE CAM Attending CHAPIN Bryant Attending Unavailable CHAPIN ROMAN Attending Unavailable CHAPIN ROMAN Referring Unavailable ALE CAM Attending Amy Bellamy DO Primary Care Provider Amy Alarcon DO Attending Provider Medications Current Medications Medication Drug Class(es) Dates Sig (Normalized) Sig (Original) [id number] 200 actuat albuterol 0.09 mg/actuat metered dose inhaler (10 sources) beta2-Adrenergic Agonist Start: 04-22-2024 End: 04-22-2025 take 2 puff(s) by inhalation every four hours for wheezing albuterol HFA (Ventolin HFA) 90 mcg/act inhaler Indications: Wheezing Inhale 2 puffs every 4 (four) hours if needed for wheezing 18 g 11 04/22/2024 04/22/2025 Active amLODIPine 5 mg oral tablet (20 sources) Dihydropyridine Calcium Channel Ortega Start: 02-24-2025 End: 02-24-2025 take 1 tablet by mouth once daily Amlodipine 5 mg tablet Active 5 MG PO Daily February 24, 2025 10:40am Complies with drug therapy Start: 10-22-2023 End: 07-20-2024 take 1 tablet by mouth once daily amLODIPine (Norvasc) 5 MG tablet Indications: Primary hypertension TAKE 1 TABLET BY MOUTH DAILY 90 tablet 1 07/12/2024 Active calcitriol 0.68533 mg oral capsule (18 sources) Vitamin D3 Analog Start: 10-18-2024 take 1 capsule by mouth once daily calcitriol (Rocaltrol) 0.25 MCG capsule Indications: Vitamin D deficiency , Alcohol use disorder Take 1 capsule (0.25 mcg) by mouth Daily 90 capsule 2 10/18/2024 Active Start: 01-22-2024 End: 01-22-2024 take 1 capsule by mouth once daily calcitriol (Rocaltrol) 0.25 MCG capsule Indications: Vitamin D deficiency , Alcohol use disorder Take 1 capsule (0.25 mcg) by mouth Daily 90 capsule 2 01/22/2024 Active ergocalciferol 1.25 mg oral capsule (9 sources) Provitamin D2 Compound Start: 10-22-2023 End: 04-21-2024 Vitamin D, Ergocalciferol, 42353 units capsule Indications: Vitamin D deficiency Take 1 capsule by mouth every 7 (seven) days 12 capsule 1 01/22/2024 04/21/2024 Active Start: 08-26-2023 End: 02-24-2025 take 1 capsule by mouth once daily Ergocalciferol (Vitamin D2) 1,250 mcg (50,000 unit) capsule Active 1250 MCG PO Daily February 24, 2025 10:41am Complies with drug therapy furosemide 20 mg oral tablet (20 sources) Loop Diuretic Start: 02-24-2025 End: 02-24-2025 take 1 tablet by mouth once daily Furosemide 20 mg tablet Active 20 MG PO Daily February 24, 2025 10:41am Complies with drug therapy Start: 10-22-2023 End: 07-20-2024 take 1 tablet by mouth once daily furosemide (Lasix) 20 MG tablet Indications: Primary hypertension , Alcoholic cirrhosis of liver without ascites (HCC) TAKE 1 TABLET BY MOUTH DAILY 90 tablet 1 07/12/2024 Active mecobalamin 1 mg chewable tablet (1 source) Start: 02-24-2025 take 1 tablet by mouth once daily Mecobalamin (Vitamin B12) 1,000 mcg tablet,chewable Active 1000 MCG PO Daily February 24, 2025 12:00am Complies with drug therapy microencapsulated potassium chloride 10 meq extended release oral tablet (20 sources) Start: 02-24-2025 End: 02-24-2025 take 1 tablet by mouth once daily Potassium Chloride 10 mEq tablet,ER particles/crystals Active 10 MEQ PO daily February 24, 2025 10:42am Complies with drug therapy Start: 10-22-2023 End: 07-20-2024 take 1 tablet by mouth once daily potassium chloride CR (Klor-Con M10) 10 MEQ ER tablet Indications: Hypokalemia TAKE 1 TABLET BY MOUTH DAILY * DO NOT CRUSH OR CHEW * 90 tablet 1 07/12/2024 Active spironolactone 25 mg oral tablet (20 sources) Aldosterone Antagonist Start: 10-22-2023 End: 07-20-2024 take 1 tablet by mouth once daily spironolactone (Aldactone) 50 MG tablet Indications: Primary hypertension , Alcoholic cirrhosis of liver without ascites (HCC) TAKE 1 TABLET BY MOUTH DAILY 90 tablet 1 07/12/2024 Active Start: 08-26-2023 End: 02-24-2025 take 1 tablet by mouth once daily Spironolactone 25 mg tablet Active 25 MG PO Daily February 24, 2025 10:42am Complies with drug therapy vitamin b12 0.05 mg oral tablet (18 sources) Vitamin B12 Start: 01-22-2024 End: 01-22-2024 take 1 tablet by mouth once daily cyanocobalamin (Vitamin B-12) 50 MCG tablet Indications: Alcohol use disorder Take 1 tablet (50 mcg) by mouth Daily 90 tablet 2 01/22/2024 Active Completed/Discontinued Medications Medication Drug Class(es) Dates Sig (Normalized) Sig (Original) hydroCHLOROthiazide 25 mg / valsartan 320 mg oral tablet (2 sources) Thiazide Diuretic, Angiotensin 2 Receptor Ortega Start: 08-26-2023 End: 02-24-2025 take 1 tablet by mouth once daily Valsartan-Hydroch lorothiazide 320-25 mg tablet Discontinued 1 TAB PO Daily August 26, 2023 12:00am February 24, 2025 10:25am Problems Active Problems Problem Classification Problem Date Documented Date Episodic/Chronic Alcohol-related disorders (20 sources) Alcoholic cirrhosis; Translations: [Alcoholic cirrhosis of liver without ascites] Onset: 06-24-2023 06-24-2023 Chronic Chronic obstructive pulmonary disease and bronchiectasis (12 sources) Suspected respiratory disease; Translations: [Chronic obstructive pulmonary disease, unspecified] Onset: 04-22-2024 04-22-2024 Chronic Essential hypertension (20 sources) Hypertensive disorder; Translations: [Essential (primary) hypertension] Onset: 06-24-2023 06-24-2023 Chronic Fluid and electrolyte disorders (20 sources) Hypokalemia; Translations: [Hypokalemia] Onset: 08-18-2023 08-18-2023 Episodic Mycoses (3 sources) Onychomycosis due to dermatophyte ; Translations: [Tinea unguium] 03-03-2024 Episodic Nutritional deficiencies (19 sources) Vitamin D deficiency; Translations: [Vitamin D deficiency, unspecified] Onset: 06-24-2023 06-24-2023 Chronic Nutritional deficiencies (1 source) Cobalamin deficiency; Translations: [Deficiency of other specified B group vitamins] 02-24-2025 Episodic Other and unspecified benign neoplasm (2 sources) Polyp of colon; Translations: [Polyp of colon] 02-24-2025 Episodic Other connective tissue disease (6 sources) Pain in toe; Translations: [Pain in right toe(s)] 03-03-2024 Episodic Other connective tissue disease (2 sources) Calcific tendinitis of right foot; Translations: [Calcific tendinitis, right ankle and foot] 12-15-2024 Episodic Other connective tissue disease (2 sources) Peroneal tendinitis of right lower limb; Translations: [Peroneal tendinitis, right leg] 12-15-2024 Episodic Other connective tissue disease (2 sources) Pain in right foot; Translations: [Pain in right foot] 12-15-2024 Episodic Other inflammatory condition of skin (16 sources) Psoriasis; Translations: [Psoriasis, unspecified] Onset: 06-24-2023 06-24-2023 Chronic Other liver diseases (2 sources) Cirrhosis of liver; Translations: [Unspecified cirrhosis of liver] 02-24-2025 Chronic Other lower respiratory disease (2 sources) Wheezing; Translations: [Wheezing] 04-22-2024 Episodic Other nervous system disorders (2 sources) Difficulty walking; Translations: [Difficulty in walking, not elsewhere classified] 12-15-2024 Chronic Other skin disorders (3 sources) Dystrophia unguium; Translations: [Nail dystrophy] 03-03-2024 Episodic Residual codes; unclassified (18 sources) Tobacco user; Translations: [Tobacco use] Onset: 06-24-2023 06-24-2023 Episodic Past or Other Problems Problem Classification Problem Date Documented Da te Episodic/Chronic Abdominal hernia (16 sources) Umbilical hernia; Translations: [Umbilical hernia without obstruction or gangrene] Onset: 4 06-24-2023 Episodic Administrative/social admission (16 sources) First encounter by subject; Translations: [Persons encountering health services in other specified circumstances] Onset: 4 06-24-2023 Episodic Gastrointestinal hemorrhage (16 sources) Gastrointestinal hemorrhage; Translations: [Hemorrhage of anus and rectum] Onset: 4 06-24-2023 Episodic Other and unspecified benign neoplasm (16 sources) History of adenomatous polyp of colon; Translations: [H/O adenomatous polyp of colon] Onset: 4 06-24-2023 Episodic Other diseases of veins and lymphatics (16 sources) Venous insufficiency of leg; Translations: [Venous insufficiency (chronic) (peripheral)] Onset: 4 06-24-2023 Episodic Residual codes; unclassified (13 sources) Alcoholism; Translations: [Alcohol use disorder] Onset: 4 06-24-2023 Episodic Residual codes; unclassified (5 sources) Other specified conditions influencing health status; Translations: [Alcohol use disorder] Onset: 4 06-24-2023 Episodic Sprains and strains (17 sources) Low back strain; Translations: [Strain of muscle, fascia and tendon of lower back, initial encounter] Onset: 4 01-24-2024 Episodic Results Test Name Value Interpretation Reference Range Facil ity XR Foot - right 3 [facility] Result: 3 views right foot: Weight-bearing: DP, oblique, lateral: 12/15/2024: Unremarkable for acute osseous or joint pathology. No distinct fractures or stress fractures are identified. Calcific deposition or along the styloid process at the insertion of the peroneus brevis tendon. Hindfoot cavus is appreciated. Arthritic changes through the midfoot appreciated. [facility] Radiology Study observation (narrative) [facility] Joey 08-26-2023 L Specimen: Received: 08/26/23 Status: JEFF Villasenor Num: [id number] Spec Type: Surgical Subm Dr: Ena Whaley MD Tissues: A Colon Biopsy (TRANSV POLYP) B Colon Biopsy (DESC POLYP) C Colon Biopsy (SIGMOID POLYP) Procedures: HE/6, Gross/Micro L4/3 Age/ Patient Sex Location Account Attending Physician ReginaGlenn 73/M [id number] Ean Whaley MD SPEC NUM: RECD: 08/26/23 STATUS: JEFF VILLASENOR NUM: [id number] ASIA: 08/26/23 DR: Ena Whaley MD ENTERED: 08/26/23 [facility] DR: SPEC TYPE: Surgical DEPT: S ORDERED: [...] Entirely submitted in one cassette labeled B1. Specimen: Received: 08/26/23 Status: JEFF Villasenor Num: [id number] Spec Type: Surgical Subm Dr: Ena Whaley MD Tissues: A Colon Biopsy (TRANSV POLYP) B Colon Biopsy (DESC POLYP) C Colon Biopsy (SIGMOID POLYP) Procedures: HE/Isis Gross/Micro L4/3 Patient: Glenn Tapia [id number] (Continued) Specimen: Received: 08/26/23 (Continued) Gross Description (Continued) Signed (signatur e on file) Evans Hart MD 08/27/231802 Specimen: Received: 08/26/23 Status: JEFF Villasenor Num: [id number] Spec Type: Surgical Subm Dr: Ena Whaley MD Tissues: A Colon Biopsy (TRANSV POLYP) B Colon Biopsy (DESC POLYP) C Colon Biopsy (SIGMOID POLYP) Procedures: HE/6, Gross/Micro L4/3 Patient: Glenn Tapia [id number] (Continued) Specimen: [id number] Received: 08/26/23 (Continued) Gross Description (Continued) C. Received in formalin labeled with the patient's name, date of and sigmoid polyps (three) are three looney tissues ranging from 0.3 x 0.3 x 0.1 cm to 0.4 x 0.3 x 0.1 cm. Entirely submitted in one cassette labeled C1. CPT Codes 21403m4 Specimen: [id number] Received: 08/26/23 Status: JEFF Villasenor Num: [id number] Spec Type: Surgical Subm Dr: Ena Whaley MD Tissues: A Colon Biopsy (TRANSV POLYP) B Colon Biopsy (DESC POLYP) C Colon Biopsy (SIGMOID POLYP) Procedures: HE/6, Gross/Micro L4/3 Patient: Glenn Tapia [id number] (Continued) Signed (signatur e on file) Evans Hart MD 08/27/23 180 Normal [facility] Vital Signs Date Time Vital Sign Value Performing Clinician Facility 02-24-2025 09:58-0400 Body height 187.96 cm Amy Dorian DO Work Phone: [facility] 02-24-2025 09:58-0400 Body mass index (BMI) [Ratio] 36.3 kg/m2 Amy Dorian DO Work Phone: [facility] 02-24-2025 09:58-0400 Body weight 128.36 kg Amy Dorian DO Work Phone: [facility] 02-24-2025 09:58-0400 Diastolic blood pressure 72 mm[Hg] Amy Dorian DO Work Phone: [facility] 02-24-2025 09:58-0400 Heart rate 74 /min Amy Dorian DO Work Phone: [facility] 02-24-2025 09:58-0400 Respiratory rate 20 /min Amy Dorian DO Work Phone: [facility] 02-24-2025 09:58-0400 SaO2% (BldA) [Mass fraction] 96 % Amy Dorian DO Work Phone: [facility] 02-24-2025 09:58-0400 Systolic blood pressure 124 mm[Hg] Amy Dorian DO Work Phone: [facility] 12-15-2024 12:54-0400 Body height 190.5 cm Chapin Rusher DPM Work Phone: [facility] 12-15-2024 12:54-0400 Body mass index (BMI) [Ratio] 36.75 kg/m2 Chapin Ubaldoher DPM Work Phone: [facility] 12-15-2024 12:54-0400 Body weight 133.36 kg Chapin Rusher DPM Work Phone: [facility] 12-02-2024 13:19-0400 Body height 190.5 cm Chapin Rusher DPM Work Phone: [facility] 12-02-2024 13:19-0400 Body mass index (BMI) [Ratio] 36.75 kg/m2 Chapin Rusher DPM Work Phone: [facility] 12-02-2024 13:19-0400 Body weight 133.36 kg Chapin Rusher DPM Work Phone: [facility] 06-30-2024 14:16-0500 Body height 190.5 cm Chapin Rusher DPM Work Phone: [facility] 06-30-2024 14:16-0500 Body mass index (BMI) [Ratio] 36.77 kg/m2 Chapin Rusher DPM Work Phone: [facility] 01-29-2025 14:16-0500 Body weight 133.45 kg Chapin Roman DPM Work Phone: [facility] 04-22-2024 13:27-0500 Body height 190.5 cm Ale Cam MARKETING TECHNOLOGY COORDINATOR Work Phone: [facility] 04-22-2024 13:27-0500 Body mass index (BMI) [Ratio] 36.77 kg/m2 Ale Cam MARKETING TECHNOLOGY COORDINATOR Work Phone: [facility] 04-22-2024 13:27-0500 Body temperature 96.21 [degF] Ale Cam MARKETING TECHNOLOGY COORDINATOR Work Phone: [facility] 04-22-2024 13:27-0500 Body weight 133.45 kg Ale Cam MARKETING TECHNOLOGY COORDINATOR Work Phone: [facility] 04-22-2024 13:27-0500 Diastolic blood pressure 72 mm[Hg] Ale Cam MARKETING TECHNOLOGY COORDINATOR Work Phone: [facility] 04-22-2024 13:27-0500 Heart rate 86 /min Ale Cam MARKETING TECHNOLOGY COORDINATOR Work Phone: [facility] 04-22-2024 13:27-0500 Respiratory rate 16 /min Ale Cam MARKETING TECHNOLOGY COORDINATOR Work Phone: [facility] 04-22-2024 13:27-0500 SaO2% (BldA) [Mass fraction] 95 % Ale Cam MARKETING TECHNOLOGY COORDINATOR Work Phone: [facility] 04-22-2024 13:27-0500 Systolic blood pressure 136 mm[Hg] Ale Cam MARKETING TECHNOLOGY COORDINATOR Work Phone: [facility] 03-03-2024 14:10-0400 Body height 190.5 cm Chapin Roman DPM Work Phone: [facility] 03-03-2024 14:10-0400 Body mass index (BMI) [Ratio] 36.5 kg/m2 Chapin Roman DPM Work Phone: [facility] 03-03-2024 [id number] Body weight 132.45 kg Chapin Roman DPM Work Phone: [facility] 01-22-2024 13:14-0400 Body height 190.5 cm Ale Cam MARKETING TECHNOLOGY COORDINATOR Work Phone: [facility] 01-22-2024 13:14-0400 Body mass index (BMI) [Ratio] 36.5 kg/m2 Ale Cam MARKETING TECHNOLOGY COORDINATOR Work Phone: [facility] 01-22-2024 13:14-0400 Body temperature 97.7 [degF] Ale Cam MARKETING TECHNOLOGY COORDINATOR Work Phone: [facility] 01-22-2024 13:14-0400 Body weight 132.45 kg Ale Cam MARKETING TECHNOLOGY COORDINATOR Work Phone: [facility] 01-22-2024 13:14-0400 Diastolic blood pressure 78 mm[Hg] Ale Cam MARKETING TECHNOLOGY COORDINATOR Work Phone: [facility] 01-22-2024 13:14-0400 Heart rate 59 /min Ale Cam MARKETING TECHNOLOGY COORDINATOR Work Phone: [facility] Comment on above: 97% O2 01-22-2024 13:14-0400 Systolic blood pressure 128 mm[Hg] Ale Cam MARKETING TECHNOLOGY COORDINATOR Work Phone: [facility] 08-26-2023 11:12-0400 Diastolic blood pressure 70 mm[Hg] MD Sutherland Asaad Work Phone: [facility] 08-26-2023 11:12-0400 Heart rate 67 /min MD Ena Whaley Work Phone: [facility] 08-26-2023 11:12-0400 Respiratory rate 18 /min MD Sutherland Asalorenzo Work Phone: [facility] 08-26-2023 11:12-0400 SaO2% (BldA) [Mass fraction] 98 % MD Ena Whaley Work Phone: [facility] 08-26-2023 11:12-0400 Systolic blood pressure 149 mm[Hg] MD Ena Whaley Work Phone: [facility] 08-26-2023 08:35-0400 Body height 190.5 cm MD Ena Whaley Work Phone: [facility] 08-26-2023 08:35-0400 Body weight 133.8 kg MD Ena Whaley Work Phone: [facility] Encounters Encounter Date Encounter Type Care Provider Facility Start: 02-24-2025 End: 02-24-2025 ambulatory Amy Alarcon DO Work Phone: [facility] Work Phone: Start: 02-24-2025 End: 02-24-2025 Patient encounter procedure Amy Alarcon DO -[facility] Work Phone: Start: 12-15-2024 End: 12-15-2024 Bamboo flowseleazar Roman DPM Work Phone: [facility] Start: 12-15-2024 End: 12-15-2024 Bamboo flowsheet Chapin Roman DPM Work Phone: [facility] Start: 12-15-2024 End: 12-15-2024 Office outpatient visit 25 minutes Chapin Roman DPM Work Phone: [facility] Comment on above: Calcific tendonitis of foot, right (Primary Dx); Peroneal tendonitis, right; Pain in right foot; Difficulty walking Start: 12-15-2024 End: 12-15-2024 ambulatory CHAPIN ROMAN Not Available Start: 12-02-2024 End: 12-02-2024 Bamboo flowsheet Chapin Roman DPM Work Phone: [facility] Start: 12-02-2024 End: 12-02-2024 Bamboo flowsheet Chapin Roman DPM Work Phone: [facility] Start: 12-02-2024 End: 12-02-2024 Patient encounter procedure Chapin Roman DPM Work Phone: [facility] Comment on above: Dermatophytosis of n ail (Primary Dx); Dystrophic nail; Pain around toenail, right foot; Pain around toenail, left foot Start: 12-02-2024 End: 12-02-2024 ambulatory CHAPIN ROMAN Not Available Start: 07-09-2024 End: 07-12-2024 Refill Ale Cam MARKETING TECHNOLOGY COORDINATOR Work Phone: [facility] Comment on above: Primary hypertension (CMS/HCC); Alcoholic cirrhosis of liver without ascites (CMS/HCC); Hypokalemia Start: 06-30-2024 End: 06-30-2024 Patient encounter procedure Chapin Roman DPM Work Phone: [facility] Comment on above: Dermatophytosis of n ail (Primary Dx); Dystrophic nail; Pain around toenail, right foot; Pain around toenail, left foot Start: 06-30-2024 End: 06-30-2024 ambulatory CHAPIN ROMAN Not Available Start: 06-30-2024 End: 06-30-2024 Bamboo flowsheet Chapin Roman DPM Work Phone: [facility] Start: 06-30-2024 End: 06-30-2024 Bamboo flowsheet Chapin Roman DPM Work Phone: [facility] Start: 04-22-2024 End: 04-22-2024 Bamboo flowsheet Ale Cam MARKETING TECHNOLOGY COORDINATOR Work Phone: [facility] Start: 04-22-2024 End: 04-22-2024 Bamboo flowsheet Ale Wintersk MARKETING TECHNOLOGY COORDINATOR Work Phone: [facility] Start: 04-22-2024 End: 04-22-2024 Office outpatient visit 15 minutes Ale Tinocozpatrick MARKETING TECHNOLOGY COORDINATOR Work Phone: [facility] Comment on above: Alcoholic cirrhosis of liver without ascites (CMS/HCC) (Primary Dx); Primary hypertension (CMS/HCC); Wheezing; Suspected chronic obstructive pulmonary disease based on initial evaluation (CMS/HCC) Start: 04-22-2024 End: 04-22-2024 ambulatory ALE CAM Not Available Start: 03-03-2024 End: 03-03-2024 Patient encounter procedure Chapin Roman DPM Work Phone: [facility] Comment on above: Dermatophytosis of n ail (Primary Dx); Dystrophic nail; Pain around toenail, right foot; Pain around toenail, left foot Start: 03-03-2024 End: 03-03-2024 ambulatory CHAPIN ROMAN Not Available Start: 03-03-2024 End: 03-03-2024 Bamboo flowsheet Chapin Roman DPM Work Phone: [facility] Start: 03-03-2024 End: 03-03-2024 Bamboo flowsheet Chapin Roman DPM Work Phone: [facility] Start: 01-22-2024 End: 01-22-2024 Bamboo flowsheet Ale Cam MARKETING TECHNOLOGY COORDINATOR Work Phone: [facility] Start: 01-22-2024 End: 01-22-2024 Bamboo flowsheet Ale Cam MARKETING TECHNOLOGY COORDINATOR Work Phone: [facility] Start: 01-22-2024 End: 01-22-2024 ambulatory ALE CAM Not Available Start: 01-22-2024 End: 01-22-2024 Office outpatient visit 25 minutes Ale Cam MARKETING TECHNOLOGY COORDINATOR Work Phone: [facility] Comment on above: Primary hypertension (CMS/HCC) (Primary Dx); Vitamin D deficiency; Alcohol use disorder; Hypokalemia; Alcoholic cirrhosis of liver without ascites (CMS/HCC); Strain of lumbar region, initial encounter Start: 08-26-2023 End: 08-26-2023 ambulatory NON STAFF Facility:[facility] Start: 08-26-2023 Non-patient / Non-visit MD Marina Whaley Work Phone: [facility] Gastroenterology Work Phone: Start: 08-26-2023 End: 08-26-2023 Admission to same day surgery center MD Ena Whaley Work Phone: [facility] Work Phone: Start: 08-26-2023 End: 08-26-2023 ambulatory NON STAFF [facility] Work Phone: Start: 07-22-2023 Non-patient / Non-visit MD Marina Whaley Work Phone: [facility] Work Phone: Start: 07-16-2023 Non-patient / Non-visit MD Marina Whaley Work Phone: [facility] Gastroenterology Work Phone: Procedures Date Procedure Procedure Detail Performing Clinician Start: 12-15-2024 Radex foot complete minimum 3 views Chapin Roman DPM Work Phone: Start: 09-15-2023 Colonoscopy Ale rosa NP Work Phone: Start: 08-26-2023 Colonoscopy MD Sutherland As aad Work Phone: Plan of Treatment Date Care Activity Detail Author Start: 09-14-2033 Screening for malign ant neoplasm of colon [facility] Start: 04-05-2025 End: 04-05-2025 Patient encounter procedure 04/05/2025 1:15 PM EST Procedure Visit [facility] [address] [place] [address] Chapin Roman DPM [address] [place] [address] [facility] Start: 01-31-2025 Influenza vaccination Influenza Vacc ine (#1) [facility] Start: 12-15-2024 End: 12-15-2024 Patient encounter procedure 12/15/2024 1:00 PM EDT Office Visit [facility] [address] [facility] [place] [address] Chapin Roman DPM [address] [place] [address] [facility] Comment on above: Arrived Start: 12-02-2024 End: 12-02-2024 Patient encounter procedure 12/02/2024 1:30 PM EDT Procedure Visit [facility] [address] [place] [address] Chapin Roman [address] [place] [address] [facility] Comment on above: Arrived Start: 11-01-2024 End: 11-01-2024 Patient encounter procedure 11/01/2024 1:00 PM EDT Office Visit [facility] [address] [place] [address] Chapin Roman DPM [address] [place] [address] [facility] Start: 07-19-2024 End: 07-19-2024 Patient encounter procedure 07/19/2024 2:30 PM EST [facility] [address] [place] [id number] Ale Cam, TYLER [address] [place] [id number] [facility] Start: 06-30-2024 End: 06-30-[address] [facility] Comment on above: Arrived Start: 04-22-2024 End: 04-22-2024 Patient encounter procedure [facility] Comment on above: Arrived Start: 03-03-2024 End: 03-03-[address] [facility] Comment on above: Arrived Start: 02-01-2024 Influenza vaccination Influenza Vacc ine (#1) [facility] Start: 08-26-2023 [facility] Start: 1968 Pneumococcal Vaccine : 65+ Years (1 of 2 - PCV) Pneumococcal Vaccine: 65+ Years (1 of 2 - PCV) [facility] Start: 1955 Pneumococcal Vaccine : 65+ Years (1 of 2 - PCV) Pneumococcal Vaccine: 65+ Years (1 of 2 - PCV) [facility] Start: 1950 Medicare Annual Wellness (AWV) Medicare Annual Wellness (AWV) [facility] Start: 1950 Screening for malign ant neoplasm of colon [facility] Start: 1950 Screening for malign ant neoplasm of lung Lung Cancer Screening Shared Decision Making [facility] Comprehensive metabo lic 2000 panel - Serum or Plasma [facility] Patient Education Colon polyps H emorrhoids (DC) Diverticulosis (DC) [facility] Work Phone: [facility] Immunizations Immunization Date Immunization Notes Care Provider Fa cility 04-22-2024 influenza, seasonal, injectable, preservative free Chapin Roman DPM Work Phone: [facility] 04-22-2024 influenza virus vacc ine, unspecified formulation Chapin Roman DPM Work Phone: [facility] Payers Date Payer Category Payer Self-pay 2021 Private Health Insurance [employer] [id number] 2021 Unknown [employer] [id number] 2021-Present [address] [address] [place] [address] [id number] 2021 Unknown [id number] 2015 Medicare [id number] 2015 Medicare [id number] 1950 Unknown [id number] 1949 Unknown [id number] 1949 Unknown [id number] 1949 Unknown [id number] 1949 Unknown [id number] .[id number] 1949 Unknown [id number] 1949 Unknown [id number] Unknown [id number] Social History Date Type Detail Facility Start: 08-26-2023 Tobacco smoking stat us NHIS Smoker (finding) [facility] Start: 1950 Sex Assigned At Male F [facility] Start: 11-18-2023 End: 02-24-2025 Tobacco smoking status NHIS Smokes tobacco daily [facility] History of tobacco use Cigarette Smoker [facility] Start: 11-18-2023 End: 01-22-2024 Cigarettes smoked current (pack per day) - Reported 0.5 [facility] History of tobacco use Passive smoker [facility] Start: 11-18-2023 Tobacco use and exposure Smokeless tobacco non-user [facility] Start: 01-22-2024 End: 12-15-2024 Alcoholic beverage intake Current drinker of alcohol (finding) [facility] Start: 01-22-2024 End: 12-02-2024 Tobacco use panel [facility] Start: 04-29-2023 Alcohol Comment daily [facility] Start: 1950 Sex assigned at Not on file [facility] Sex Male (finding) [facility] Goals Date Patient Goal Desired Activity /State Clinical Notes 08-26-2023 to 12-15-2024 Chapin Roman DPM - 12/15/2024 1:00 PM EDTPatient InstructionsStgeno Roman DPM - 12/02/2024 1:30 PM EDTPatient InstructionsStgeno Roman DPM - 06/30/2024 2:15 PM ESTPatient Instructions Note Date & Type Note Facility 12-15-2024 History of Present illness Narrative Images from the original note were not included. Subjective Patient ID: Glenn Tapia is a 74 y.o. male who presents for Ankle Pain (Glenn Tapia is a 74 y.o. male who presents with Right ankle pain. NKI, Patient relates was painful with swelling over the weekend, feeling better today. Patient used crutches over the weekend. SS 13). HPI Chief complaint: Acute onset of lateral midfoot pain right. Developed some 5 days previous, without known injury or trauma. Denies pop or snap sensation. Symptoms had progressed to the point of requiring crutch assist until yesterday. He describes about 50 percent improvement over the past day or so; without treatment or intervention; no longer requiring crutch assist. Denies any new or acute onset of swelling, warmth or discoloration. Denies dysesthesias or radicular pain. Ankle Pain Medications Current Outpatient Medications: albuterol HFA (Ventolin HFA) 90 mcg/act inhaler, Inhale 2 puffs every 4 (four) hours if needed for wheezing, Disp: 18 g, Rfl: 11 amLODIPine (Norvasc) 5 MG tablet, TAKE 1 TABLET BY MOUTH DAILY, Disp: 90 tablet, Rfl: 1 calcitriol (Rocaltrol) 0.25 MCG capsule, Take 1 capsule (0.25 mcg) by mouth Daily, Disp: 90 capsule, Rfl: 2 cyanocobalamin (Vitamin B-12) 50 MCG tablet, Take 1 tablet (50 mcg) by mouth Daily, Disp: 90 tablet, Rfl: 2 furosemide (Lasix) 20 MG tablet, TAKE 1 TABLET BY MOUTH DAILY, Disp: 90 tablet, Rfl: 1 potassium chloride CR (Klor-Con M10) 10 MEQ ER tablet, TAKE 1 TABLET BY MOUTH DAILY * DO NOT CRUSH OR CHEW *, Disp: 90 tablet, Rfl: 1 spironolactone (Aldactone) 50 MG tablet, TAKE 1 TABLET BY MOUTH DAILY, Disp: 90 tablet, Rfl: 1 Allergies Patient has no known allergies. Past Surgical History Past Surgical History: Procedure Laterality Date BACK SURGERY 2001 Family History Family History Problem Relation Name Age of Onset Hypertension Mother Keila Hypertension Father Andrew Lung cancer Father Andrew Objective General assessment: Alert and oriented. Pleasant disposition. Independently ambulatory. Wearing slippers with Ortho-feet insoles. Vascular: DP 1/4 bilateral. PT faintly palpable bilateral. CFT brisk all digits. Gradient temperature: Warm-slightly cool bilateral. Symmetrical, mild, non-pitting edema bilateral ankles; with chronic stasis dermatosis and pigmentation of the lower extremities. Neurologic: tactile and light touch sensation intact. Dermatologic: skin turgor is fair. Mild-moderate non-inflame xerosis bilateral. Unremarkable for eczema or dermatitis. Web space areas are clean, dry, non-inflamed. Toenail pathology: All digits: None are spared: TDO deformity. Bilateral great toes: Onychogryphosis by history. Lesion pattern: Minimally raised IPK lesion 4th metatarsal condyle right foot; non-tender, non-inflamed.. Prominent pinch callus lesions bilateral first MTP joint. Orthopedic: Range of motion: Limited but functional ankle, subtalar and first MTP joint range of motion. Semi-rigid contractures of the central digits bilateral. Focused exam right foot: Moderate-sharp point tenderness styloid process of the 5th metatarsal and insertional segment of the peroneus brevis tendon. The cuboid groove and retromalleolar groove are non-tender. Mild tenderness along the 5th metatarsal shaft. The MTP joints are otherwise non-tender. Hindfoot and ankle structures non-tender. Mild, stable foot and ankle swelling, without erythema or warmth. Stance assessment: Symmetrical, cavus foot structure. Radiology: RADIOGRAPHS: 3 views right foot: Weight-bearing: DP, oblique, lateral: 12/15/2024: Unremarkable for acute osseous or joint pathology. No distinct fractures or stress fractures are identified. Calcific deposition at the insertion of the peroneus brevis tendon. Hindfoot cavus is appreciated. Arthritic changes through the midfoot appreciated. Assessment/Plan Insertional calcific peroneus brevis tendinopathy right; with acute insertional tendonitis flare. Status post lumbar spine surgery. Plan: Review of clinical and x-ray findings, differential diagnosis, etiology and contributing/aggravating factors, treatment strategy, rationale and objectives. Patient declines oral medication. Discussed topical agents for consideration: Salon Pas patches, Aspercreme, Biofreeze, CBD cream etc.. Lateral wedge modification of Ortho-feet right insole; reducing lateral dumping or stress load; patient noting favorable support and relief upon leaving the clinic. Discussed bracing for consideration; which would be difficult and not practical due to mobility and flexibility restraints. Discussed appropriate supportive footwear. Procedure: This note was created with the assistance of a speech recognition program. While intending to generate a timely document that accurately reflects the content of the visit, no guarantee can be provided that every grammatical or spelling mistake has been or will be identified or corrected. Thank you for your understanding. Chapin Roman DPM documented in this encounter [facility] 12-15-2024 Instructions Chapin Roman DPM - 12/15/2024 1:00 PM EDT As noted documented in this encounter [facility] 12-02-2024 History of Present illness Narrative Images from the original note were not included. Subjective Patient ID: Glenn Tapia is a 74 y.o. male who presents for Nail care (Glenn Tapia is a 74 y.o. male who presents for Toenail Care (SS: 11).). HPI Chief complaint: Symptomatic toenail deformity. Identifies essentially all digits as problematic/symptomatic. Chronic toenail deformity of multiple years duration; insidious onset without known injury or trauma.. Toenails are described as thickened, deformed, discolored with splitting and cracking. Denies bleeding or drainage. Problematic/symptomatic over the past several weeks or so; again impacting his ability to wear shoes comfortably. Attempts at self-care are difficult, ineffective and not practical; increasing risk exposure. Family members unable to provide effective care. Palliative care measures have provided favorable transient symptom relief. Risk factors: Mobility and flexibility restraints. Toenail deformity. Digital and/or shoe trauma and related complications. Medications Current Outpatient Medications: albuterol HFA (Ventolin HFA) 90 mcg/act inhaler, Inhale 2 puffs every 4 (four) hours if needed for wheezing, Disp: 18 g, Rfl: 11 amLODIPine (Norvasc) 5 MG tablet, TAKE 1 TABLET BY MOUTH DAILY, Disp: 90 tablet, Rfl: 1 calcitriol (Rocaltrol) 0.25 MCG capsule, Take 1 capsule (0.25 mcg) by mouth Daily, Disp: 90 capsule, Rfl: 2 cyanocobalamin (Vitamin B-12) 50 MCG tablet, Take 1 tablet (50 mcg) by mouth Daily, Disp: 90 tablet, Rfl: 2 furosemide (Lasix) 20 MG tablet, TAKE 1 TABLET BY MOUTH DAILY, Disp: 90 tablet, Rfl: 1 potassium chloride CR (Klor-Con M10) 10 MEQ ER tablet, TAKE 1 TABLET BY MOUTH DAILY * DO NOT CRUSH OR CHEW *, Disp: 90 tablet, Rfl: 1 spironolactone (Aldactone) 50 MG tablet, TAKE 1 TABLET BY MOUTH DAILY, Disp: 90 tablet, Rfl: 1 Allergies Patient has no known allergies. Past Surgical History Past Surgical History: Procedure Laterality Date BACK SURGERY 2001 Family History Family History Problem Relation Name Age of Onset Hypertension Mother Keila Hypertension Father Andrew Lung cancer Father Andrew Objective General assessment: Alert and oriented. Pleasant disposition. Independently ambulatory. 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 PT faintly palpable bilateral. CFT brisk all digits. Gradient temperature: Warm-slightly cool bilateral. Symmetrical, mild, non-pitting edema bilateral ankles. Neurologic: tactile and light touch sensation intact. Dermatologic: skin turgor is fair. Mild-moderate non-inflame xerosis bilateral. Unremarkable for eczema or dermatitis. Web space areas are clean, dry, non-inflamed. Toenail pathology: All digits: None are spared: TDO deformity: Toenail dystrophy, hypertrophy, elongation, thickening, discoloration, clubbing, crumbly texture, brittleness, subtotal detachment, periungual hyperkeratosis, without drainage. Bilateral great toes: Onychogryphosis by history. Lesion pattern: Minimally raised IPK lesion 4th metatarsal condyle right foot; non-tender, non-inflamed.. Prominent pinch callus lesions bilateral first MTP joint. Orthopedic: Range of motion: Limited but functional ankle, subtalar and first MTP joint range of motion. Semi-rigid contractures of the central digits bilateral. Radiology: Assessment/Plan Symptomatic onychodystrophy/mycosis multiple digits as described. Status post lumbar spine surgery. Plan: patient remains well satisfied with a conservative and palliative care approach. Recommend AmLactin daily as able to do so. Procedure: Toenail debridement: Aseptic technique: Hand and power instrumentation: Onychodebridement in length and thickness, with curettage of any cryptotic margins, all periungual debris; providing effective symptom and pressure relief; reducing shoe and digital trauma. This note was created with the assistance of a speech recognition program. While intending to generate a timely document that accurately reflects the content of the visit, no guarantee can be provided that every grammatical or spelling mistake has been or will be identified or corrected. Thank you for your understanding. Chapin Roman DPM documented in this encounter [facility] 12-02-2024 Instructions Chapin Roman DPM - 12/02/2024 1:30 PM EDT As noted documented in this encounter [facility] 06-30-2024 History of Present illness Narrative Images from the original note were not included. Subjective Patient ID: Glenn Tapia is a 74 y.o. male who presents for Toenail Care (SS: 11). HPI Chief complaint: Symptomatic toenail deformity. Identifies essentially all digits as problematic/symptomatic. Chronic toenail deformity of multiple years duration; insidious onset without known injury or trauma.. Toenails are described as thickened, deformed, discolored with splitting and cracking. Denies bleeding or drainage. Problematic/symptomatic over the past several weeks or so; again impacting his ability to wear shoes comfortably. Attempts at self-care are difficult, ineffective and not practical; increasing risk exposure. Family members unable to provide effective care. Palliative care measures have provided favorable transient symptom relief. Risk factors: Mobility and flexibility restraints. Toenail deformity. Digital and/or shoe trauma and related complications. Medications Current Outpatient Medications: albuterol HFA (Ventolin HFA) 90 mcg/act inhaler, Inhale 2 puffs every 4 (four) hours if needed for wheezing, Disp: 18 g, Rfl: 11 amLODIPine (Norvasc) 5 MG tablet, Take 1 tablet (5 mg) by mouth Daily, Disp: 90 tablet, Rfl: 1 calcitriol (Rocaltrol) 0.25 MCG capsule, Take 1 capsule (0.25 mcg) by mouth Daily, Disp: 90 capsule, Rfl: 2 cyanocobalamin (Vitamin B-12) 50 MCG tablet, Take 1 tablet (50 mcg) by mouth Daily, Disp: 90 tablet, Rfl: 2 furosemide (Lasix) 20 MG tablet, Take 1 tablet (20 mg) by mouth Daily, Disp: 90 tablet, Rfl: 1 potassium chloride CR (Klor-Con M10) 10 MEQ ER tablet, Take 1 tablet (10 mEq) by mouth Daily Do not crush or chew., Disp: 90 tablet, Rfl: 1 spironolactone (Aldactone) 50 MG tablet, Take 1 tablet (50 mg) by mouth Daily, Disp: 90 tablet, Rfl: 1 Allergies Patient has no known allergies. Past Surgical History Past Surgical History: Procedure Laterality Date BACK SURGERY 2002 Family History Family History Problem Relation Name Age of Onset Hypertension Mother Keila Hypertension Father Andrew Lung cancer Father Andrew Objective General assessment: Alert and oriented. Pleasant disposition. Independently ambulatory. 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 PT faintly palpable bilateral. CFT brisk all digits. Gradient temperature: Warm-slightly cool bilateral. Symmetrical, mild, non-pitting edema bilateral ankles. Neurologic: tactile and light touch sensation intact. Dermatologic: skin turgor is fair. Mild-moderate non-inflame xerosis bilateral. Unremarkable for eczema or dermatitis. Web space areas are clean, dry, non-inflamed. Toenail pathology: All digits: None are spared: TDO deformity: Toenail dystrophy, hypertrophy, elongation, thickening, discoloration, clubbing, crumbly texture, brittleness, subtotal detachment, periungual hyperkeratosis, without drainage. Bilateral great toes: Onychogryphosis by history. Lesion pattern: Minimally raised IPK lesion 4th metatarsal condyle right foot; non-tender, non-inflamed.. Prominent pinch callus lesions bilateral first MTP joint. Orthopedic: Range of motion: Limited but functional ankle, subtalar and first MTP joint range of motion. Semi-rigid contractures of the central digits bilateral. Radiology: Assessment/Plan Symptomatic onychodystrophy/mycosis multiple digits as described. Status post lumbar spine surgery. Plan: patient remains well satisfied with a conservative and palliative care approach. Recommend AmLactin daily as able to do so. Procedure: Toenail debridement: Aseptic technique: Hand and power instrumentation: Onychodebridement in length and thickness, with curettage of any cryptotic margins, all periungual debris; providing effective symptom and pressure relief; reducing shoe and digital trauma. This note was created with the assistance of a speech recognition program. While intending to generate a timely document that accurately reflects the content of the visit, no guarantee can be provided that every grammatical or spelling mistake has been or will be identified or corrected. Thank you for your understanding. Chapin Roman DPM documented in this encounter [facility] 04-22-2024 History of Present illness Narrative Associated Problem(s): Suspected chronic obstructive pulmonary disease based on initial evaluation ([facility]) Current 1 ppd smoker Has been smoking [...] per week to please let me know. Associated Problem(s): HTN (hypertension) ([facility]) Currently taking amlodipine Spironolactone Lasix Does not Check BP at home; BP is good in the office today. Denies orthostatic changes, dizziness, cough, shortness of breath, swelling in extremities. Continue current regimen. Given BP log, advised pt to record BP and bring log back with them to next visit. Associated Problem(s): Alcoholic cirrhosis of liver without ascites ([facility]) Is currently still drinking; States he has only drank 3-4 times this month. Is starting to decrease intake. Drinks Vodka mixed with cranberry juice or Powerade. Declines interest ion quitting at this time. Educated on hazardous health effects of chronic health issues. Images from the original note were not included. Subjective Patient ID: Glenn Tapia is a 74 y.o. male who presents for Hypertension and Follow-up. HPI HTN: Currently taking amlodipine Spironolactone Lasix Does not Check BP at home; Denies orthostatic changes, dizziness, cough, shortness of breath, swelling in extremities. Continue current regimen. Given BP log, advised pt to record BP and bring log back with them to next visit. Current 1 ppd smoker Has been smoking [...] per week to please let me know. Review of Systems Constitutional: Negative for activity change, appetite change, chills, diaphoresis, fatigue, fever and unexpected weight change. HENT: Negative for congestion, ear pain, rhinorrhea, sinus pressure, sinus pain, sneezing, sore throat, trouble swallowing and voice change. Eyes: Negative for visual disturbance. Respiratory: Negative for cough, chest tightness, shortness of breath and wheezing. Cardiovascular: Negative for chest pain, palpitations and leg swelling. Gastrointestinal: Negative for abdominal distention, abdominal pain, blood in stool, constipation, diarrhea and vomiting. Genitourinary: Negative for decreased urine volume, dysuria, flank pain, frequency, hematuria and urgency. Musculoskeletal: Negative for arthralgias, gait problem, joint swelling and myalgias. Skin: Negative for rash. Neurological: Negative for dizziness, tremors, syncope, weakness, light-headedness and headaches. Psychiatric/Behavioral: Negative for decreased concentration and suicidal ideas. The patient is not nervous/anxious. Hematological: Does not bruise/bleed easily. Endocrine: Negative for cold intolerance, heat intolerance, polydipsia, polyphagia and polyuria. Objective Physical Exam Vitals reviewed. Constitutional: Appearance: Normal appearance. HENT: Head: Normocephalic and atraumatic. Right Ear: Tympanic membrane normal. Left Ear: Tympanic membrane normal. Nose: Nose normal. Mouth/Throat: Mouth: Mucous membranes are moist. Pharynx: Oropharynx is clear. Eyes: Pupils: Pupils are equal, round, and reactive to light. Cardiovascular: Rate and Rhythm: Normal rate and regular rhythm. Pulses: Normal pulses. Heart sounds: Normal heart sounds. Pulmonary: Effort: Pulmonary effort is normal. Breath sounds: Wheezing present. Comments: Expiratory wheezes Abdominal: General: Abdomen is flat. Bowel sounds are normal. Palpations: Abdomen is soft. Musculoskeletal: General: Normal range of motion. Cervical back: Normal range of motion. Skin: General: Skin is warm and dry. Capillary Refill: Capillary refill takes less than 2 seconds. Neurological: General: No focal deficit present. Mental Status: He is alert and oriented to person, place, and time. Psychiatric: Mood and Affect: Mood normal. Behavior: Behavior normal. Assessment/Plan Problem List Items Addressed This Visit HTN (hypertension) ([facility]) Currently taking amlodipine Spironolactone Lasix Does not Check BP at home; BP is good in the office today. Denies orthostatic changes, dizziness, cough, shortness of breath, swelling in extremities. Continue current regimen. Given BP log, advised pt to record BP and bring log back with them to next visit. Alcoholic cirrhosis of liver without ascites ([facility]) - Primary Is currently still drinking; States he has only drank 3-4 times this month. Is starting to decrease intake. Drinks Vodka mixed with cranberry juice or Powerade. Declines interest ion quitting at this time. Educated on hazardous health effects of chronic health issues. Suspected chronic obstructive pulmonary disease based on initial evaluation ([facility]) Current 1 ppd smoker Has been smoking [...] per week to please let me know. Other Visit Diagnoses Wheezing Relevant Medications albuterol HFA (Ventolin HFA) 90 mcg/act inhaler documented in this encounter [facility] 03-03-2024 History of Present illness Narrative Images from the original note were not included. Subjective Patient ID: Glenn Tapia is a 73 y.o. male who presents for Toenail Care (SS: 11). HPI Chief complaint: Symptomatic toenail deformity. Identifies essentially all digits as problematic/symptomatic. Chronic toenail deformity of multiple years duration; insidious onset without known injury or trauma.. Toenails are described as thickened, deformed, discolored with splitting and cracking. Denies bleeding or drainage. Problematic/symptomatic over the past several weeks or so; again impacting his ability to wear shoes comfortably. Attempts at self-care are difficult, ineffective and not practical; increasing risk exposure. Family members unable to provide effective care. Palliative care measures have provided favorable transient symptom relief. Risk factors: Mobility and flexibility restraints. Toenail deformity. Digital and/or shoe trauma and related complications. Medications Current Outpatient Medications: amLODIPine (Norvasc) 5 MG tablet, Take 1 tablet (5 mg) by mouth Daily, Disp: 90 tablet, Rfl: 1 calcitriol (Rocaltrol) 0.25 MCG capsule, Take 1 capsule (0.25 mcg) by mouth Daily, Disp: 90 capsule, Rfl: 2 cyanocobalamin (Vitamin B-12) 50 MCG tablet, Take 1 tablet (50 mcg) by mouth Daily, Disp: 90 tablet, Rfl: 2 furosemide (Lasix) 20 MG tablet, Take 1 tablet (20 mg) by mouth Daily, Disp: 90 tablet, Rfl: 1 potassium chloride CR (Klor-Con M10) 10 MEQ ER tablet, Take 1 tablet (10 mEq) by mouth Daily Do not crush or chew., Disp: 90 tablet, Rfl: 1 spironolactone (Aldactone) 50 MG tablet, Take 1 tablet (50 mg) by mouth Daily, Disp: 90 tablet, Rfl: 1 Vitamin D, Ergocalciferol, 68558 units capsule, Take 1 capsule by mouth every 7 (seven) days, Disp: 12 capsule, Rfl: 1 Allergies Patient has no known allergies. Past Surgical History Past Surgical History: Procedure Laterality Date BACK SURGERY 2001 Family History Family History Problem Relation Name Age of Onset Hypertension Mother Keila Hypertension Father Andrew Lung cancer Father Andrew Objective General assessment: Alert and oriented. Pleasant disposition. Independently ambulatory. 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 PT faintly palpable bilateral. CFT brisk all digits. Gradient temperature: Warm-slightly cool bilateral. Symmetrical, mild, non-pitting edema bilateral ankles. Neurologic: tactile and light touch sensation intact. Dermatologic: skin turgor is fair. Mild-moderate non-inflame xerosis bilateral. Unremarkable for eczema or dermatitis. Web space areas are clean, dry, non-inflamed. Toenail pathology: All digits: None are spared: TDO deformity: Toenail dystrophy, hypertrophy, elongation, thickening, discoloration, clubbing, crumbly texture, brittleness, subtotal detachment, periungual hyperkeratosis, without drainage. Bilateral great toes: Onychogryphosis by history. Lesion pattern: Minimally raised IPK lesion 4th metatarsal condyle right foot; non-tender, non-inflamed.. Prominent pinch callus lesions bilateral first MTP joint. Orthopedic: Range of motion: Limited but functional ankle, subtalar and first MTP joint range of motion. Semi-rigid contractures of the central digits bilateral. Radiology: Assessment/Plan Symptomatic onychodystrophy/mycosis multiple digits as described. Status post lumbar spine surgery. Plan: patient remains well satisfied with a conservative and palliative care approach. Recommend AmLactin daily as able to do so. Procedure: Toenail debridement: Aseptic technique: Hand and power instrumentation: Onychodebridement in length and thickness, with curettage of any cryptotic margins, all periungual debris; providing effective symptom and pressure relief; reducing shoe and digital trauma. This note was created with the assistance of a speech recognition program. While intending to generate a timely document that accurately reflects the content of the visit, no guarantee can be provided that every grammatical or spelling mistake has been or will be identified or corrected. Thank you for your understanding. Chapin Roman DPM documented in this encounter [facility] 03-03-2024 Instructions Chapin Roman DPM - 03/03/2024 2:15 PM EDT As noted documented in this encounter [facility] 01-24-2024 History of Present illness Narrative Associated Problem(s): Low back strain Pulled muscle in lower lumbar region of [...] for temporary card, less than 6 months. Associated Problem(s): Vitamin D deficiency On vitamin D supplementation. Levels stable 6 months ago on last recheck. Associated Problem(s): Alcohol use disorder Is currently still drinking; 3 drinks, 3-4 ounces per day; Drinks Vodka mixed with cranberry juice or Powerade. Declines interest ion quitting at this time. Educated on hazardous health effects of chronic health issues. Associated Problem(s): Alcoholic cirrhosis of liver without ascites (CMS/HCC) Is currently still drinking; 3 drinks, 3-4 ounces per day; Drinks Vodka mixed with cranberry juice or Powerade. Declines interest ion quitting at this time. Educated on hazardous health effects of chronic health issues. Associated Problem(s): Hypokalemia 4.2 on lab work form 01/19/24 Continue Potassium as ordered. Associated Problem(s): HTN (hypertension) (CMS/HCC) looks good today in the office. Taking Amlodipine 5mg Spironlactone 50mg Lasix 20mg Denies orthostatic changes Denies edema to extremities Continue current regimen Images from the original note were not included. Subjective Patient ID: Glenn Tapia is a 73 y.o. male who presents for Follow-up (COPD, handicap placard paperwork, MED REFILLS). HPI HTN: looks good today in the office. Taking Amlodipine 5mg Spironlactone 50mg Lasix 20mg Denies orthostatic changes Denies edema to extremities Continue current regimen Hypokalemia: 4.2 on lab work form 01/19/24 Chronic Venous Insufficiency: Alcohol Use Disorder: Is currently still drinking; 3 drinks, 3-4 ounces per day; Drinks Vodka mixed with cranberry juice or Powerade. Declines interest ion quitting at this time. Educated on hazardous health effects of chronic health issues. Diet: Eats out frequently, cooks little. Frozen foods. High sodium. Water: 32 ounces per day. Exercise: Nothing consistent. Sleep: Falls asleep easily. Wakes up frequently. Attributes it to his drinking. Pulled muscle in lumbar region area of back recently, carrying cases of water into the house. Would like to know about back brace to help. Thinks he pulled muscles, states he is fine when he wakes up but the pain worsens as the day goes on. Denies: Loss of bowel or bladder Numbness/tingling Loss of sensation Admits: Tightness and discomfort to lower back Pain increases as day goes on. Declines imaging or further testing at this time. Using vodka to help pain. Review of Systems Constitutional: Negative for activity change, appetite change, chills, diaphoresis, fatigue, fever and unexpected weight change. HENT: Negative for congestion, ear pain, rhinorrhea, sinus pressure, sinus pain, sneezing, sore throat, trouble swallowing and voice change. Eyes: Negative for visual disturbance. Respiratory: Negative for cough, chest tightness, shortness of breath and wheezing. Cardiovascular: Negative for chest pain, palpitations and leg swelling. Gastrointestinal: Negative for abdominal distention, abdominal pain, blood in stool, constipation, diarrhea and vomiting. Genitourinary: Negative for decreased urine volume, dysuria, flank pain, frequency, hematuria and urgency. Musculoskeletal: Positive for back pain. Negative for arthralgias, gait problem, joint swelling and myalgias. Skin: Negative for rash. Neurological: Negative for dizziness, tremors, syncope, weakness, light-headedness and headaches. Psychiatric/Behavioral: Negative for decreased concentration and suicidal ideas. The patient is not nervous/anxious. Hematological: Does not bruise/bleed easily. Endocrine: Negative for cold intolerance, heat intolerance, polydipsia, polyphagia and polyuria. Objective Physical Exam Vitals reviewed. Constitutional: Appearance: Normal appearance. HENT: Head: Normocephalic and atraumatic. Right Ear: Tympanic membrane normal. Left Ear: Tympanic membrane normal. Nose: Nose normal. Mouth/Throat: Mouth: Mucous membranes are moist. Pharynx: Oropharynx is clear. Eyes: Pupils: Pupils are equal, round, and reactive to light. Cardiovascular: Rate and Rhythm: Normal rate and regular rhythm. Pulses: Normal pulses. Heart sounds: Normal heart sounds. Pulmonary: Effort: Pulmonary effort is normal. Breath sounds: Normal breath sounds. Abdominal: General: Abdomen is flat. Bowel sounds are normal. Palpations: Abdomen is soft. Musculoskeletal: General: Normal range of motion. Cervical back: Normal range of motion. Lumbar back: Tenderness present. Skin: General: Skin is warm and dry. Capillary Refill: Capillary refill takes less than 2 seconds. Findings: Rash present. Rash is scaling. Comments: Diffuse scattered areas of psoriasis noted. Neurological: General: No focal deficit present. Mental Status: He is alert and oriented to person, place, and time. Psychiatric: Mood and Affect: Mood normal. Behavior: Behavior normal. Assessment/Plan Problem List Items Addressed This Visit HTN (hypertension) ([facility]) - Primary looks good today in the office. Taking Amlodipine 5mg Spironlactone 50mg Lasix 20mg Denies orthostatic changes Denies edema to extremities Continue current regimen Relevant Medications amLODIPine (Norvasc) 5 MG tablet furosemide (Lasix) 20 MG tablet spironolactone (Aldactone) 50 MG tablet Alcohol use disorder Is currently still drinking; 3 drinks, 3-4 ounces per day; Drinks Vodka mixed with cranberry juice or Powerade. Declines interest ion quitting at this time. Educated on hazardous health effects of chronic health issues. Relevant Medications calcitriol (Rocaltrol) 0.25 MCG capsule cyanocobalamin (Vitamin B-12) 50 MCG tablet Vitamin D deficiency On vitamin D supplementation. Levels stable 6 months ago on last recheck. Relevant Medications calcitriol (Rocaltrol) 0.25 MCG capsule Vitamin D, Ergocalciferol, 33382 units capsule Alcoholic cirrhosis of liver without ascites (CMS/HCC) Is currently still drinking; 3 drinks, 3-4 ounces per day; Drinks Vodka mixed with cranberry juice or Powerade. Declines interest ion quitting at this time. Educated on hazardous health effects of chronic health issues. Relevant Medications furosemide (Lasix) 20 MG tablet spironolactone (Aldactone) 50 MG tablet Hypokalemia 4.2 on lab work form 01/19/24 Continue Potassium as ordered. Relevant Medications potassium chloride CR (Klor-Con M10) 10 MEQ ER tablet Low back strain Pulled muscle in lower lumbar region of [...] for temporary card, less than 6 months. documented in this encounter [facility] 01-22-2024 Instructions Ale Cam NP - 01/22/2024 1:00 PM EDT Your blood pressure is TOO HIGH in the office today. Check your blood pressure at home 3 times per week, preferably in the afternoon. Goal <130/90. Record results in blood pressure log. Bring back with you to your next visit. Diet: Eat three meals per day. Breakfast, lunch, and dinner. Avoid snacking. Avoid eating after 5/6 pm. Daily protein GOAL 35% of your intake; 30g per meal. Daily calorie GOAL 1,800-2,000 per day. Consider tracking your food intake on MyFtinessPal or LoseIt Water: Increase water intake; GOAL 64-80oz of water per day. Exercise: Increase activity. GOAL 30 minutes, 5 days per week. START SLOW. Start with 5 minutes, 5 days per week. Then increase to 10 days, 5 days per week. Continue to increase until you reach the goal. Increase steps; GOAL 10,000 steps per day. Be sure to get adequate sleep; GOAL 6-8 hours of sleep per night. Call if you need anything! documented in this encounter [facility] 08-26-2023 Procedure note [facility] Evaluation note No assessment inform ation available [facility] Work Phone: Evaluation note Diagnosis Dermatophytosis of nail- Primary Dystrophic nail Other specified disease of nail Pain around toenail, right foot Pain around toenail, left foot documented in this encounter [facility]* Diagnosis Primary hypertension (CMS/HCC)- Primary Unspecified essential hypertension Encounter to establish care with new doctor Alcohol use disorder Bright red blood per rectum Hemorrhage of rectum and anus Vitamin D deficiency Alcoholic cirrhosis of liver without ascites (CMS/HCC) Psoriasis (a type of skin inflammation) (CMS/HCC) Other psoriasis Tobacco abuse Tobacco use disorder H/O adenomatous polyp of colon Chronic venous insufficiency of lower extremity Umbilical hernia without obstruction and without gangrene Primary hypertension (CMS/HCC)- Primary Unspecified essential hypertension Umbilical hernia without obstruction and without gangrene Alcoholic cirrhosis of liver without ascites (CMS/HCC) Hypokalemia Hypopotassemia Alcohol use disorder Hypokalemia- Primary Hypopotassemia Primary hypertension (CMS/HCC) Unspecified essential hypertension Alcoholic cirrhosis of liver without ascites (CMS/HCC) Vitamin D deficiency Alcohol use disorder Primary hypertension (CMS/HCC)- Primary Unspecified essential hypertension Vitamin D deficiency Alcohol use disorder Hypokalemia Hypopotassemia Alcoholic cirrhosis of liver without ascites (CMS/HCC) Strain of lumbar region, initial encounter Alcoholic cirrhosis of liver without ascites (CMS/HCC)- Primary Primary hypertension (CMS/HCC) Unspecified essential hypertension Wheezing Suspected chronic obstructive pulmonary disease based on initial evaluation (CMS/HCC) documented in this encounter [facility] note* Diagnosis Primary hypertension (CMS/HCC)- Primary Unspecified essential hypertension Vitamin D deficiency Alcohol use disorder Hypokalemia Hypopotassemia Alcoholic cirrhosis of liver without ascites (CMS/HCC) Strain of lumbar region, initial encounter documented in this encounter [facility] note* Diagnosis Primary hypertension (CMS/HCC)- Primary Unspecified essential hypertension Encounter to establish care with new doctor Alcohol use disorder Bright red blood per rectum Hemorrhage of rectum and anus Vitamin D deficiency Alcoholic cirrhosis of liver without ascites (CMS/HCC) Psoriasis (a type of skin inflammation) (CMS/HCC) Other psoriasis Tobacco abuse Tobacco use disorder H/O adenomatous polyp of colon Chronic venous insufficiency of lower extremity Umbilical hernia without obstruction and without gangrene Primary hypertension (CMS/HCC)- Primary Unspecified essential hypertension Umbilical hernia without obstruction and without gangrene Alcoholic cirrhosis of liver without ascites (CMS/HCC) Hypokalemia Hypopotassemia Alcohol use disorder Hypokalemia- Primary Hypopotassemia Primary hypertension (CMS/HCC) Unspecified essential hypertension Alcoholic cirrhosis of liver without ascites (CMS/HCC) Vitamin D deficiency Alcohol use disorder Primary hypertension (CMS/HCC)- Primary Unspecified essential hypertension Vitamin D deficiency Alcohol use disorder Hypokalemia Hypopotassemia Alcoholic cirrhosis of liver without ascites (CMS/HCC) Strain of lumbar region, initial encounter Alcoholic cirrhosis of liver without ascites (CMS/HCC)- Primary Primary hypertension (CMS/HCC) Unspecified essential hypertension Wheezing Suspected chronic obstructive pulmonary disease based on initial evaluation (CMS/HCC) Need for immunization against influenza Need for prophylactic vaccination and inoculation against influenza Dermatophytosis of nail- Primary Dystrophic nail Other specified disease of nail Pain around toenail, right foot Pain around toenail, left foot documented in this encounter [facility]* Diagnosis Primary hypertension (CMS/HCC)- Primary Unspecified essential hypertension Encounter to establish care with new doctor Alcohol use disorder Bright red blood per rectum Hemorrhage of rectum and anus Vitamin D deficiency Alcoholic cirrhosis of liver without ascites (CMS/HCC) Psoriasis (a type of skin inflammation) (CMS/HCC) Other psoriasis Tobacco abuse Tobacco use disorder H/O adenomatous polyp of colon Chronic venous insufficiency of lower extremity Umbilical hernia without obstruction and without gangrene Primary hypertension (CMS/HCC)- Primary Unspecified essential hypertension Umbilical hernia without obstruction and without gangrene Alcoholic cirrhosis of liver without ascites (CMS/HCC) Hypokalemia Hypopotassemia Alcohol use disorder Hypokalemia- Primary Hypopotassemia Primary hypertension (CMS/HCC) Unspecified essential hypertension Alcoholic cirrhosis of liver without ascites (CMS/HCC) Vitamin D deficiency Alcohol use disorder Primary hypertension (CMS/HCC)- Primary Unspecified essential hypertension Vitamin D deficiency Alcohol use disorder Hypokalemia Hypopotassemia Alcoholic cirrhosis of liver without ascites (CMS/HCC) Strain of lumbar region, initial encounter Alcoholic cirrhosis of liver without ascites (CMS/HCC)- Primary Primary hypertension (CMS/HCC) Unspecified essential hypertension Wheezing Suspected chronic obstructive pulmonary disease based on initial evaluation (CMS/HCC) Need for immunization against influenza Need for prophylactic vaccination and inoculation against influenza Primary hypertension (CMS/HCC) Unspecified essential hypertension Alcoholic cirrhosis of liver without ascites (CMS/HCC) Hypokalemia Hypopotassemia documented in this encounter [facility]* Diagnosis Primary hypertension- Primary Unspecified essential hypertension Encounter to establish care with new doctor Alcohol use disorder Bright red blood per rectum Hemorrhage of rectum and anus Vitamin D deficiency Alcoholic cirrhosis of liver without ascites (HCC) Psoriasis (a type of skin inflammation) Other psoriasis Tobacco abuse Tobacco use disorder H/O adenomatous polyp of colon Chronic venous insufficiency of lower extremity Umbilical hernia without obstruction and without gangrene Primary hypertension- Primary Unspecified essential hypertension Umbilical hernia without obstruction and without gangrene Alcoholic cirrhosis of liver without ascites (HCC) Hypokalemia Hypopotassemia Alcohol use disorder Hypokalemia- Primary Hypopotassemia Primary hypertension Unspecified essential hypertension Alcoholic cirrhosis of liver without ascites (HCC) Vitamin D deficiency Alcohol use disorder Primary hypertension- Primary Unspecified essential hypertension Vitamin D deficiency Alcohol use disorder Hypokalemia Hypopotassemia Alcoholic cirrhosis of liver without ascites (HCC) Strain of lumbar region, initial encounter Alcoholic cirrhosis of liver without ascites (HCC)- Primary Primary hypertension Unspecified essential hypertension Wheezing Suspected chronic obstructive pulmonary disease based on initial evaluation (HCC) Need for immunization against influenza Need for prophylactic vaccination and inoculation against influenza Dermatophytosis of nail- Primary Dystrophic nail Other specified disease of nail Pain around toenail, right foot Pain around toenail, left foot documented in this encounter [facility] note* Diagnosis Primary hypertension- Primary Unspecified essential hypertension Encounter to establish care with new doctor Alcohol use disorder Bright red blood per rectum Hemorrhage of rectum and anus Vitamin D deficiency Alcoholic cirrhosis of liver without ascites (HCC) Psoriasis (a type of skin inflammation) Other psoriasis Tobacco abuse Tobacco use disorder H/O adenomatous polyp of colon Chronic venous insufficiency of lower extremity Umbilical hernia without obstruction and without gangrene Primary hypertension- Primary Unspecified essential hypertension Umbilical hernia without obstruction and without gangrene Alcoholic cirrhosis of liver without ascites (HCC) Hypokalemia Hypopotassemia Alcohol use disorder Hypokalemia- Primary Hypopotassemia Primary hypertension Unspecified essential hypertension Alcoholic cirrhosis of liver without ascites (HCC) Vitamin D deficiency Alcohol use disorder Primary hypertension- Primary Unspecified essential hypertension Vitamin D deficiency Alcohol use disorder Hypokalemia Hypopotassemia Alcoholic cirrhosis of liver without ascites (HCC) Strain of lumbar region, initial encounter Alcoholic cirrhosis of liver without ascites (HCC)- Primary Primary hypertension Unspecified essential hypertension Wheezing Suspected chronic obstructive pulmonary disease based on initial evaluation (HCC) Need for immunization against influenza Need for prophylactic vaccination and inoculation against influenza Calcific tendonitis of foot, right- Primary Peroneal tendonitis, right Pain in right foot Pain in soft tissues of limb Difficulty walking Difficulty in walking documented in this encounter [facility] note* Diagnosis Onset Date Resolution Status Admit Date Cirrhosis of liver acute 2024 9:54am Colon polyps acute February 242024 9:54am HTN (hypertension) acute 2024 9:54am Hypokalemia acute January 9:54am Tobacco abuse acute February 012024 9:54am [facility] Work Phone: History and physical note Author Ena Whaley [facility] August 26, 2023 10:09am Note Date/Time August 26, 2023 10: 09am [facility] [address] [place] [address] Gastroenterology H&P Signed Patient: Glenn Tapia MR#: [id number] 519 : 1950 Acct:[id number] Age/Sex: 73 / M Adm Date: 4 Loc: Room: Type: [facility] Attending Dr: Ena Whaley MD [...] <Electronically signed by Ena Whaley MD> 08/26/23 100[address] [facility] Work Phone: Hospital Discharge instructions Additional Instructions DISCHARGE INSTRUCTIONS [...] years. -Follow up with PCP. -Office number [phone]. [facility] Work Phone: Reason for referral (narrative)No reason for referral [facility] Work Phone: Chief Complaint and Reason for Visit Chief Complaint Amb Documentation hx of colon polyps hx of colon polyps Chief Complaint Admit Date established patient February 24, 2025 9:54am Reason for Visit Admit Date Cirrhosis of liver February 24, 2025 9:54am Colon polyps February 24, 2025 9:54am HTN (hypertension) February 24, 2025 9:54am Hypokalemia February 24, 2025 9:54am Tobacco abuse February 24, 2025 9:54am Family History Relationship Condition Age at Onset Recorded Date/T farzana sister Diabetes mellitus Unknown Hypertension Unknown father Malignant neoplasm of lung Unknown Not Specified Hypertension Unknown Relationship Condition Age at Onset Recorded Date/T farzana sister Diabetes mellitus Unknown Hypertension Unknown father Malignant neoplasm of lung Unknown mother Hypertension Unknown Advance Directives Advance Directive Response Recorded Date/ Time Advance Directives No July 2:44pm Summary Purpose Additional Source Comments Care Teams (unrecognized sec tion and content) Team Status: Active Member Role Status Dates NON STAFF Primary Care Provider Active Team Status: Active Member Role Status Dates Ena Whaley MD Attending Provider Active Start: July 16, 2023 Team Status: Active Member Role Status Dates Sofía Montero Attending Provider Active Start : July 22, [...] Care Provider Active Start: August 26, 2023 Repairer General Relationship Specialty Start Date End Date Jose Raul Valenzuela MD [address] [place] [phone] PCP - General Family Medicine 01/05/24 Ale Cam NP [address] [place] [phone] Nurse Practitioner Family Medicine 01/05/24 Repairer General Relationship Specialty Start Date End Date Jose Raul Valenzuela MD [address] [place] [phone] PCP - General Family Medicine 01/05/24 Ale Cam NP [address] [place] [phone] Nurse Practitioner Family Medicine 01/05/24 Repairer General Relationship Specialty Start Date End Date Jose Raul Valenzuela MD [address] [place] [phone] PCP - General Family Medicine 01/05/24 Ale Cam NP [address] [place] [phone] Nurse Practitioner Family Medicine 01/05/24 Repairer General Relationship Specialty Start Date End Date Jose Raul Valenzuela MD [address] [place] [phone] PCP - General Family Medicine 01/05/24 Ale Cam NP [address] [place] [address] Nurse Practitioner Family Medicine 01/05/24 Repairer General Relationship Specialty Start Date End Date Jose Raul Valenzuela MD [address] [place] [phone] PCP - General Family Medicine 01/05/24 lAe Cam NP [address] [place] [address] Nurse Practitioner Family Medicine 01/05/24 Repairer General Relationship Specialty Start Date End Date Jose Raul Valenzuela MD [address] [place] [phone] PCP - General Family Medicine 01/05/24 Ale Cam NP [address] [place] [address] Nurse Practitioner Family Medicine 01/05/24 Repairer General Relationship Specialty Start Date End Date Jose Raul Valenzuela MD [address] [place] [phone] PCP - General Family Medicine 01/05/24 Ale Cam NP [address] [place] [address] Nurse Practitioner Family Medicine 01/05/24 Repairer General Relationship Specialty Start Date End Date Jose Raul Valenzuela MD [address] [place] [address] PCP - General Family Medicine 01/05/24 Ale Cam NP [address] [place] [address] Nurse Practitioner Family Medicine 01/05/24 Repairer General Relationship Specialty Start Date End Date Jose Raul Valenzuela MD [address] [place] [address] PCP - General Family Medicine 01/05/24 Ale Cam NP [address] [place] [address] Nurse Practitioner [facility] Medicine 01/05/24 Team Status: Active Member Role Status Dates Amy Alarcon DO Primary Care Provider Active Team Status: Inactive Member Role Status Dates Amy Alarcon DO Primary Care Provider Active S tart: February 24, 2025 End: February 24, 2025 Amy Alarcon DO Attending Provider Active Star t: February 24, 2025 End: February 24, 2025 (unrecognized sect ion and content) No Status Records FoundNo Status Records Found INFORMATION SOURCE (unrecogn ized section and content) DATE CREATED AUTHOR 08/29/2023 [facility] DATE CREATED AUTHOR AUTHOR'S ORGANIZ ATION 12/19/2024 [facility] EPIC Reason for Visit (unrecogniz ed section and content) Reason Comments Toenail Care SS: 11 Reason Comments Hypertension Follow-up Reason Comments Follow-up COPD, handicap placa rd paperwork, MED REFILLS Reason Comments Med Refill Reason Comments Nail care Glenn Tapia is a [age] y.o. male who presents for Toenail Care (SS: 11). Reason Comments Foot Pain Glenn Tapia is a [age] y.o. male who presents with Right foot pain. NKI, Patient relates was painful with swelling over the weekend, feeling better today. Patient used crutches over the weekend. SS 13 Goals (unrecognized section and content) Goals may be documented in a n alternate section FOR RECORDS PERTAINING TO PATIENTS WHO ARE [...] BE BASED ON THE PRIMARY CLINICAL RECORDS. [facility] [employer] [facility]. provides no warranty or guarantee of the accuracy or completeness of information in this document.
[2025-02-25 10:08] LABS: Hematocrit 46.4 % (42.0-54.0); Hemoglobin 15.4 g/dL (14.0-18.0); Immature Granulocytes Abs Auto 0.02 10^3/uL (0.00-0.03); Immature Granulocytes Pct Auto 0.3 % (0.0-0.5); Lymphocytes Absolute Auto 1.0 10^3/uL (1.2-3.8); Mean Corpuscular HGB Conc 33.2 g/dL (29.9-35.2); Mean Corpuscular Hemoglobin 31.1 pg (25.9-34.0); Mean Corpuscular Volume 93.7 fL (80.0-94.0); Platelet Count 273 10^3/uL (150-450); Red Blood Count 4.95 10^6/uL (4.70-6.10); White Blood Count 7.5 10^3/uL (4.0-11.0)
[2025-02-25 10:33] LABS: Alanine Aminotransferase 75 U/L (16-63); Albumin Globulin Ratio 0.5; Albumin Level 2.6 g/dL (3.4-5.0); Alkaline Phosphatase 326 U/L (46-116); Anion Gap 7.9; Aspartate Amino Transferase 78 U/L (15-37); Blood Urea Nitrogen 10.0 mg/dL (7.0-18.0); Calcium 9.2 mg/dL (8.5-10.1); Carbon Dioxide 32.4 mmol/L (21.0-32.0); Chloride 99 mmol/L (98-107); Cholesterol 160 mg/dL (<=200); Estimated GFR (African America >60 (>=60 mL/min/1.73m^2); Estimated GFR (Non-African Ame >60 (>=60 mL/min/1.73m^2); Globulin 5.3 g/dL; Glucose 104 mg/dL (74-106); HDL Cholesterol 53 mg/dL (40-60); Potassium 4.3 mmol/L (3.5-5.1); Sodium 135 mmol/L (136-145); Total Protein 7.9 g/dL (6.4-8.2); Triglycerides 77 mg/dL (<=150); VLDL CHOLESTEROL 15.4 mg/dL
[2025-02-26 05:07] LABS: Vitamin B12 859 pg/mL (232-1245)
== END 2025-02-25 09:42 | disposition home or self-care (01) ==
LOC: LAB 09:45
PROVIDERS: PCP Family Medicine; Visit Provider Family Medicine
DX: E87.6 Hypokalemia (principal); I10 Essential (primary) hypertension; K74.60 Unspecified cirrhosis of liver; E53.8 Deficiency of other specified B group vitamins; E55.9 Vitamin D deficiency, unspecified
CPT/HCPCS: 36415; 80053; 80061; 82306; 82607; 85025

== ENCOUNTER 2025-04-15 14:18 | Outpatient (OUT) | payer MEDICARE, OTHER, SELFPAY ==
--- OUTSIDE RECORDS SUMMARY | 2025-04-15 14:25 | XMS_ITS | CCD ---
Author Organization [facility] Care Team Providers Care Baggage Agent Supervisor Name Role Phone MD Ena Whaley Attending Provider NON STAFF Primary Care Provider Unavailabl e NON STAFF Primary Care Unavailable Ena Whaley Attending Unavailable Ena Whaley Admitting Unavailable Jose Raul Valenzuela MD Primary Care Provider [phone] Dorina SCOTT, Ale Unavailable Unavailable Primary Care Provider Unavailabl e Denisha Mata DO Primary Care Provider [phone] DorianDenisha dennis DO Attending Provider Shaikh Rosen MD Primary Care Provider Jose Raul Valenzuela MD Primary Care Provider [phone] Dornia SCOTT, Ale Unavailable [phone] CHAPIN ROMAN Attending Unavailable CHAPIN ROMAN Attending Unavailable ALE CAM Attending Unavailabl e CHAPIN ROMAN Attending Unavailable CHAPIN ROMAN Referring Unavailable CHAPIN ROMAN Attending Unavailable Medications Current Medications MedicationDrug Class(es)DatesSig (Normalized)Sig (Original)[id number] 200 actuat albuterol 0.09 mg/actuat metered dose inhaler (13 sources)beta2-Adrenergic AgonistStart: 09-29-1406Vtfozhzjg Sulfate 90 mcg/actuation HFA aerosol inhaler Active 2 INH INHALATION Every 6 hours as need ed for shortness of breath or wheezing 8.5 0 March 29, 2025 12:00am Complies with drug therapyStart: 04-22-2024 End: 42-00-3705mkgq 2 puff(s) by inhalation every four hours for wheezing albuterol HFA (Ventolin HFA) 90 mcg/act inhaler Indications: Wheezing Inhale 2 puffs every 4 (four)hours if needed for wheezing 18 g 11 01/13/2025 01/13/2026 ActiveamLODIPine 5 mg oral tablet (20 sources)Dihydropyridine Calcium Channel BlockerStart: 01-13-2025 End: 18-42-9633pjsu 1 tablet by mouth once dailyamLODIPine (Norvasc) 5 MG tablet Indications: Primary hypertension Take 1 tablet (5 mg) by mouth Daily 90 tablet 1 01/13/2025 ActiveStart: 10-22-2023 End: 04-57-7058eujs 1 tablet by mouth once dailyamLODIPine (Norvasc) 5 MG tablet Indications: Primary hypertension TAKE 1 TABLET BY MOUTH DAILY 90 tablet 1 07/12/2024 Activeazithromycin 250 mg oral tablet (1 source)Macrolide AntimicrobialStart: 77-18-2737Jequvygmstqn 250 mg tablet Active 0 PO .COMPLEX 6 0 March 29, 2025 12:00am For 250 mg dose pack: take 500 mg today (day 1), then 250 mg for 4 days (days 2-5) PO Complies with drug therapybenzonatate 200 mg oral capsule (1 source)Non-narcotic AntitussiveStart: 16-94-8411glbv 1 capsule by mouth twice daily as needed for coughBenzonatate 200 mg capsule Active 200 MG PO Twice daily as needed for cough 14 7 0 March 29, 2025 12:00am Complies with drug therapy calcitriol 0.46034 mg oral capsule (20 sources)Vitamin D3 AnalogStart: 86-26-1334uykn 1 capsule by mouth once daily calcitriol (Rocaltrol) 0.25 MCG capsule Indications: Vitamin D deficiency , Alcohol use disorder Take 1 capsule (0.25 mcg) by mouth Daily 90 capsule 2 01/13/2025 ActiveStart: 93-76-8454dpkf 1 capsule by mouth once dailycalcitriol (Rocaltrol) 0.25 MCG capsule Indications: Vitamin D deficiency , Alcohol use disorder Take 1 capsule (0.25 mcg) by mouth Daily 90 capsule 2 10/18/2024 Active Start: 01-22-2024 End: 84-47-3878sbdl 1 capsule by mouth once dailycalcitriol (Rocaltrol) 0.25 MCG capsule Indications: Vitamin D deficiency , Alcohol use disorder Take 1 capsule (0.25 mcg) by mouth Daily 90 capsule 2 01/22/2024 Activeergocalciferol 1.25 mg oral capsule (12 sources)Provitamin D2 CompoundStart: 74-62-2542ghci 1 capsule by mouth every weekErgocalciferol (Vitamin D2) 1,250 mcg (50,000 unit) capsule Active 1250 MCG PO every week 12 4 February 24, 2025 3:37pm Complies with drug therapyStart: 10-22-2023 End: 67-28-3557Njekqco D, Ergocalciferol, 47598 units capsule Indications: Vitamin D deficiency Take 1 capsule by mouth every 7 (seven) days 12 capsule 1 01/22/2024 04/21/2024 ActiveStart: 08-26-2023 End: 02-22-5445ykwe 1 capsule by mouth once dailyErgocalciferol (Vitamin D2) 1,250 mcg (50,000 unit) capsule Discontinued 1250 MCG PO Daily 90 4 February 24, 2025 10:41am February 24, 2025 3:37pmfurosemide 20 mg oral tablet (20 sources)Loop DiureticStart: 01-13-2025 End: 32-82-2301wvvp 1 tablet by mouth once dailyfurosemide (Lasix) 20 MG tablet Indications: Primary hypertension , Alcoholic cirrhosis of liver without ascites (HCC) Take 1 tablet (20 mg) by mouth Daily 90 tablet 1 01/13/2025 ActiveStart: 10-22-2023 End: 91-39-1576bchy 1 tablet by mouth once dailyfurosemide (Lasix) 20 MG tablet Indications: Primary hypertension , Alcoholic cirrhosis of liver without ascites (HCC) TAKE 1 TABLET BY MOUTH DAILY 90 tablet 1 07/12/2024 Activemecobalamin 1 mg chewable tablet (2 sources)Start: 72-72-7197tbxn 1 tablet by mouth once dailyMecobalamin (Vitamin B12) 1,000 mcg tablet,chewable Active 1000 MCG PO Daily February 24, 2025 12:00am Complies with drug therapymicroencapsulated potassium chloride 10 meq extended release oral tablet (20 sources)Start: 01-13-2025 End: 21-54-4711vqtl 1 tablet by mouth once dailypotassium chloride CR (Klor-Con M10) 10 MEQ ER tablet Indications: Hypokalemia Take 1 tablet (10 mEq) by mouth Daily Do not crush or chew. 90 tablet 1 01/13/2025 ActiveStart: 10-22-2023 End: 52-32-9160jfci 1 tablet by mouth once dailypotassium chloride CR (Klor-Con M10) 10 MEQ ER tablet Indications: Hypokalemia TAKE 1 TABLET BY MOUTH DAILY * DO NOT CRUSH OR CHEW * 90 tablet 1 07/12/2024 ActivepredniSONE 20 mg oral tablet (1 source)Start: 52-87-0482fioj 1 tablet by mouth twice dailyPrednisone 20 mg tablet Active 20 MG PO Twice daily 14 March 29, 2025 12:00am Complies withdrug therapyspironolactone 50 mg oral tablet (20 sources)Aldosterone AntagonistStart: 19-99-6692vbwo 1 tablet by mouth once dailyspironolactone (Aldactone) 50 MG tablet Indications: Primary hypertension , Alcoholic cirrhosis of liver without ascites (HCC) Take 1 tablet (50 mg) by mouth Daily 90 tablet 1 01/13/2025 ActiveStart: 10-22-2023 End: 45-55-4180cizo 1 tablet by mouth once dailyspironolactone (Aldactone) 50 MG tablet Indications: Primary hypertension , Alcoholic cirrhosis of liver without ascites (HCC) TAKE 1 TABLET BY MOUTH DAILY 90 tablet 1 07/12/2024 ActiveStart: 08-26-2023 End: 61-45-3594vgox 1 tablet by mouth once dailySpironolactone 25 mg tablet Active 25 MG PO Daily 90 February 24, 2025 10:42am Complies with drug therapyvitamin b12 0.05 mg oral tablet (20 sources)Vitamin J77Brqey: 07-77-9124dntm 1 tablet by mouth once daily cyanocobalamin (Vitamin B-12) 50 MCG tablet Indications: Alcohol use disorder Take 1 tablet (50 mcg) by mouth Daily 90 tablet 2 01/13/2025 ActiveStart: 01-22-2024 End: 46-73-4736wxti 1 tablet by mouth once dailycyanocobalamin (Vitamin B-12) 50 MCG tablet Indications: Alcohol use disorder Take 1 tablet (50 mcg) by mouth Daily 90 tablet 2 01/22/2024 Active Completed/Discontinued Medications MedicationDrug Class(es)DatesSig (Normalized)Sig (Original)hydroCHLOROthiazide 25 mg / valsartan 320 mg oral tablet (3 sources)Thiazide Diuretic, Angiotensin 2 Receptor BlockerStart: 08-26-2023 End: 80-02-8452qynx 1 tablet by mouth once dailyValsartan-Hydrochlorothiazide 320-25 mg tablet Discontinued 1 TAB PO Daily August 26, 2023 12:00amSept2024 10:25am Problems Active Problems Problem ClassificationProblemDateDocumented DateEpisodic/ChronicAlcohol-related disorders (20 sources)Alcoholic cirrhosis; Translations: [Alcoholic cirrhosis of liver without ascites]Onset: 007529-18-5964UlamsbhKnfdgyn obstructive pulmonary disease and bronchiectasis (12 sources)Suspected respiratory disease; Translations: [Chronic obstructive pulmonary disease, unspecified]Onset: 543171-41-9907YtxlngwRabrtzznx hypertension (20 sources)Hypertensive disorder; Translations: [Essential (primary) hypertension]Onset: 662860-42-9855MnqxsyfJffipge (4 sources)Onychomycosis due to dermatophyte ; Translations: [Tinea unguium] 41-68-9321OkmuyypnVuishgbywyg deficiencies (20 sources)Vitamin D deficiency; Translations: [Vitamin D deficiency, unspecified]Onset: 954502-53-4406RmhccluTetcipgfjia deficiencies (3 sources)Cobalamin deficiency; Translations: [Deficiency of other specified B group vitamins]68-80-2836RfsjeeihRrqux and unspecified benign neoplasm (4 sources)Polyp of colon; Translations: [Polyp of colon]55-29-6312GyrognoqEtbar connective tissue disease (8 sources)Pain in toe; Translations: [Pain in right toe(s)]95-32-2440Qfcqmyyu Other connective tissue disease (2 sources)Calcific tendinitis of right foot; Translations: [Calcific tendinitis, right ankle and foot]36-07-6176DemegxqdFrzfl connective tissue disease (2 sources)Peroneal tendinitis of right lower limb; Translations: [Peroneal tendinitis, right leg]95-49-8203DutxsssuOxofi connective tissue disease (2 sources)Pain in right foot; Translations: [Pain in right foot]12-15-2024 EpisodicOther inflammatory condition of skin (19 sources)Psoriasis; Translations: [Psoriasis, unspecified]Onset: 06-24-2023 54-29-3200QqhzhnlBzvcz liver diseases (5 sources)Cirrhosis of liver; Translations: [Unspecified cirrhosis of liver] 07-41-7405BmfurvmSnzgm lower respiratory disease (2 sources)Wheezing; Translations: [Wheezing]82-10-7604IowibgsvGnofv nervous system disorders (2 sources)Difficulty walking; Translations: [Difficulty in walking, not elsewhere classified]55-99-9902ElyhfwpIqjnb screening for suspected conditions (not mental disorders or infectious disease) (2 sources)Other specified abnormal findings of blood chemistry; Translations: [Elevated liver function tests]64-09-0857YcuqomwqQwkdm skin disorders (4 sources)Dystrophia unguium; Translations: [Nail dystrophy]84-70-6206Dmcoddag Past or Other Problems Problem ClassificationProblemDateDocumented DateEpisodic/ChronicAbdominal hernia (19 sources)Umbilical hernia; Translations: [Umbilical hernia without obstruction or gangrene]Onset: 109653-34-6572LdfpnheuReevacdthdedrk/social admission (19 sources)First encounter by subject; Translations: [Persons encountering health services in other specified circumstances]Onset: EpisodicFluid and electrolyte disorders (20 sources)Hypokalemia; Translations: [Hypokalemia]Onset: EpisodicGastrointestinal hemorrhage (19 sources)Gastrointestinal hemorrhage; Translations: [Hemorrhage of anus and rectum]Onset: 669208-66-4076BoejgrlqIehnc and unspecified benign neoplasm (19 sources)History of adenomatous polyp of colon; Translations: [H/O adenomatous polyp of colon]Onset: 815954-73-2186LqmysethTqcri circulatory disease (3 sources)Suspected respiratory disease; Translations: [Other specified symptoms and signs involving the circulatory and respiratory systems]Onset: 052420-70-8570VbckqpgkNocyj diseases of veins and lymphatics (19 sources)Venous insufficiency of leg; Translations: [Venous insufficiency (chronic) (peripheral)]Onset: 165565-04-8952StijqitsBlcvxkqi codes; unclassified (13 sources)Alcoholism; Translations: [Alcohol use disorder]Onset: 06-24-2023 13-40-8365NqrdrataDvvghadr codes; unclassified (20 sources)Tobacco user; Translations: [Tobacco use]Onset: EpisodicResidual codes; unclassified (8 sources)Other specified conditions influencing health status; Translations: [Alcohol use disorder]Onset: 213930-15-2161FbvpmfztHxzvprv and strains (20 sources)Low back strain; Translations: [Strain of muscle, fascia and tendon of lower back, initial encounter]Onset: 877164-31-1671Euwcdvdy Results Test NameValueInterpretationReference RangeFacilityBasophils Auto (Bld) [#/Vol] Ordered By: Denisha Mata on 06-88-8370Grqkowqvi (Bld) [#/Vol]0.0 10 3/uL0.0-0.1 [facility]ighBasophils/100 WBC Auto (Bld)Ordered By: Denisha Mata on 43-36-0593Nkxebgera/100 WBC (Bld)0.3 %0.2-2.0[facility]ighCholesterol in LDL Calc [Mass/Vol]Ordered By: Denisha Mata on 02-25-2025 Cholesterol in LDL [Mass/Vol]91.6 mg/dLAcmc Healthcare System GlenbeighComment on above:<100 mg/dl IYRDXKQ885-996 mg/dl NEAR OR ABOVE ZZIRUAR706-059 mg/dl BORDERLINE NJKT392-726 mg/dl HIGH>190 mg/dl VERY HIGHCholesterol in VLDL Calc [Mass/Vol]Ordered By: Denisha Mata on 07-43-6542Svejfrthnwq in VLDL [Mass/Vol] 15.4 mg/dLFirelands Regional Medical CenterEosinophils/100 WBC Auto (Bld)Ordered By: Denisha Mata on 99-96-7107Cslizaikfwd/100 WBC (Bld)0.5 %Low0.9-7.0[facility]beighErythrocyte distribution width Auto (RBC) [Ratio]Ordered By: Denisha Mata on 07-73-8811Jqhlqhutowj distribution width (RBC) [Ratio]13.6 %11.0-15.0[facility] GlenbeighGlobulin Calc (S) [Mass/Vol]Ordered By: DENISHA MATA on 00-65-4039Kmffmebh (S) [Mass/Vol]5.3 g/dLAcmc Healthcare System GlenbeighGlomerular filtration rate (GFR) estimation in non- AmericanOrdered By: DENISHA MATA on 84-47-4141WFP/1.73 sq M.predicted among non- blacks MDRD (S/P/Bld) [Vol rate/Area]mL/min/{1.73_m2}>=60 mL/min/1.73m 2 [facility] GlenbeighHematocrit Auto (Bld) [Volume fraction]Ordered By: Denisha Mata on 83-60-3098Bjwqzlvciv (Bld) [Volume fraction]46.4 %42.0-54.0 [facility]beighHemoglobin [Mass/volume] in BloodOrdered By: Denisha Mata on 93-22-5076Lkfpbcrmva (Bld) [Mass/Vol]15.4 g/dL14.0-18.0[facility] GlenbeighLaboratory - Chemistry and Chemistry - challengeOrdered By: DENISHA MATA on 82-77-0436Jskyckq [Mass/Vol]2.6 g/dLLow3.4-5.0[facility]beighALP [Catalytic activity/Vol]326 U/JYlhv39-791EtjfjjxvxAcmc Healthcare System GlenbeighALT [Catalytic activity/Vol]75 U/EJdtm21-89WwzmovntaAcmc Healthcare System GlenbeighAST [Catalytic activity/Vol]78 U/BRhna64-61YfejrtezeAcmc Healthcare System GlenbeighBilirubin [Mass/Vol]2.3 mg/dLHigh0.2-1.0[facility]ighCalcium [Mass/Vol]9.2 mg/dL8.5-10.1FMcKitrick HospitalChloride [Moles/Vol]99 mmol/I03-076IqmkvovstAcmc Healthcare System GlenbeighCO2 [Moles/Vol]32.4 mmol/LHigh21.0-32.0[facility] Cobalamin (Vitamin B12) [Mass/Vol]859 pg/rA267-4337CaompbbwyAcmc Healthcare System GlenbeighComment on above:Performed at: - [facility] [id number] Director: Johnathon Rosenbaum PhD, Phone: [phone] Creatinine [Mass/Vol]1.09 mg/dL0.70-1.30[facility] GFR/1.73 sq M.predicted MDRD (S/P/Bld) [Vol rate/Area]mL/min/{1.73_m2}>=60 mL/min/1.73m 2FMcKitrick HospitalGlucose [Mass/Vol]104 mg/nU99-701 [facility]ighPotassium [Moles/Vol]4.3 mmol/L3.5-5.1FMcKitrick HospitalProtein [Mass/Vol]7.9 g/dL6.4-8.2FKettering Health Prebleodium [Moles/Vol]135 mmol/VFvs434-104EaelaokivAcmc Healthcare System GlenbeighUrea nitrogen [Mass/Vol]10.0 mg/dL7.0-18.0[facility] GlenbeighUrea nitrogen/Creatinine [Mass ratio]9.2 mg/mgAcmc Healthcare System GlenbeighLaboratory - Chemistry and Chemistry - challengeOrdered By: Denisha Mata on 98-08-9786Uvdxpgguyox [Mass/Vol]160 mg/dL<=200[facility]ighCholesterol in HDL [Mass/Vol]53 mg/pY72-22JqidmfimnAcmc Healthcare System GlenbeighComment on above:> or =60 mg/dl - LOW CARDIOVASCULAR RISK<40 mg/dl - HIGH CARDIOVASCULAR RISKTriglyceride [Mass/Vol]77 mg/dL<=150[facility]beighLaboratory - Hematology and Cell countsOrdered By: Denisha Mata on 67-32-4500Voyqatle granulocytes/100 WBC (Bld)0.3 %0.0-0.5FMcKitrick HospitalLeukocytes [#/volume] corrected for nucleated erythrocytes in Blood by Automated counOrdered By: Denisha Mata on 13-73-6597UOX corrected for nucl RBC Auto (Bld) [#/Vol]7.5 10 3/uL4.0-11.0[facility] Lymphocytes Auto (Bld) [#/Vol]Ordered By: Denisha Mata on 00-66-5207Zpmeulmtegb (Bld) [#/Vol]1.0 10 3/uLLow1.2-3.8[facility] Lymphocytes/100 WBC Auto (Bld)Ordered By: Denisha Mata on 02-25-2025 Lymphocytes/100 WBC (Bld)13.3 %Low20.5-60.0[facility] CenterH Auto (RBC) [Entitic mass]Ordered By: Denisha Mata on 88-42-5659MBX (RBC) [Entitic mass]31.1 pg25.9-34.0[facility] GlenbeighMCHC Auto (RBC) [Mass/Vol]Ordered By: Denisha Mata on 65-70-3841HOQP (RBC) [Mass/Vol]33.2 g/dL 29.9-35.2FMcKitrick HospitalMCV Auto (RBC) [Entitic vol]Ordered By: Denisha Mata on 85-16-0056UYO (RBC) [Entitic vol]93.7 fL80.0-94.0[facility] GlenbeighMonocytes Auto (Bld) [#/Vol]Ordered By: Denisha Mata on 70-80-9198Rkhbuigbh (Bld) [#/Vol]0.9 10 3/uLHigh0.3-0.8[facility]beighMonocytes/100 WBC Auto (Bld)Ordered By: Denisha aMta on 02-25-2025 Monocytes/100 WBC (Bld)11.7 %1.7-12.0[facility] Neutrophils Auto (Bld) [#/Vol]Ordered By: Denisha Mata on 37-58-5952Dnirwrzqkgc (Bld) [#/Vol]5.6 10 3/uL1.4-6.5FMcKitrick HospitalNeutrophils/100 WBC Auto (Bld)Ordered By: Denisha Mata on 24-26-8651Jcfagrihdyt/100 WBC (Bld) 73.9 %43.0-75.0[facility]ighNo Panel InformationOrdered By: Denisha Mata on 71-97-553068087359-Yfptbol Vitamin D Total51.0 ng/mLAcmc Healthcare System GlenbeighComment on above:<20 ng/mL Vit D txkbtxtni52-<30 ng/mL Vit D tthopqgzcnfl56-504 ng/mL Vit D sufficient>100 ng/mL Potential Toxicity Eosinophils # (Auto)0.0 10 3/uL0.0-0.7FMcKitrick HospitalImmature Granulocyte # (Auto)0.02 10 3/uL0.00-0.03[facility] Platelet mean volume Auto (Bld) [Entitic vol]Ordered By: Denisha Mata on 25-96-9613Pwbrqede mean volume (Bld) [Entitic vol]11.2 fL9.5-13.5FMcKitrick HospitalPlatelets Auto (Bld) [#/Vol]Ordered By: Denisha Mata on 50-59-3058Kemgpfrrn (Bld) [#/Vol]273 10 3/iW598-855KqvbxktxmAcmc Healthcare System GlenbeighRBC Auto (Bld) [#/Vol]Ordered By: Denisha Mata on 78-81-5548AAR (Bld) [#/Vol]4.95 10 6/uL4.70-6.10[facility]ucl[facility] Hospitalerum or plasma albumin/globulin mass ratioOrdered By: DENISHA MATA on 02-25-2025 Albumin/Globulin [Mass ratio]0.5 {ratio}[facility]ucl[facility] Hospitalerum or plasma anion gap determinationOrdered By: DENISHA MATA on 39-62-5267Abcyb gap [Moles/Vol]7.9 mmol/LFKettering Health Prebleerum or plasma total cholesterol/high density lipoprotein (HDL) cholesterol mass ratOrdered By: Denisha Mata on 72-15-4497Mnlehypzyqm.total/Cholesterol in HDL [Mass ratio]3.0 {ratio}[facility] GlenbeighComment on above:3.3 - 4.4 LOW RISK4.4 - 7.1 AVERAGE RISK7.1 - 11.0 MODERATE RISK>11.0 HIGH RISKXR Foot - right 3 Viewson 10-67-2289Czlsvdv Result: 3 views right foot: Weight-bearing: DP, oblique, lateral: 12/15/2024: Unremarkable for acute osseous or joint pathology. No distinct fractures or stress fractures are identified. Calcific deposition or along the styloid process at the insertion of the peroneus brevis tendon. Hindfoot cavus is appreciated. Arthritic changes through the midfoot appreciated.[facility] HospitalRadiology Study observation (narrative)[facility] 78-12-0372REwegtdtz: [id number] Received: 08/26/23 Status: JEFF Villasenor Num: [id number] Spec Type: Surgical Subm Dr: Ena Whaley MD Tissues: A Colon Biopsy (TRANSV POLYP) B Colon Biopsy (DESC POLYP) C Colon Biopsy (SIGMOID POLYP) Procedures: HE/6, Gross/Micro L4/3 Age/ Patient Sex Location Account Attending Physician Rhoda Tapia 73/M [id number] Ena Whaley MD SPEC NUM: [id number] RECD: 08/26/23 STATUS: JEFF VILLASENOR NUM: [id number] ASIA: 08/26/23- SUBM DR: Ena Whaley MD ENTERED: 08/26/23 [facility] DR: SPEC TYPE: Surgical DEPT: S ORDERED: [...] submitted in one cassette labeled B1. Specimen: [id number] Received: 08/26/23 Status: JEFF Villasenor Num: [id number] Spec Type: Surgical Subm Dr: Ena Whaley MD Tissues: A Colon Biopsy (TRANSV POLYP) B Colon Biopsy (DESC POLYP) C Colon Biopsy (SIGMOID POLYP) Procedures: SABA/Marisol Marinelli/Carol L4/3 Patient: Rhoda Tapia [id number] (Continued) Specimen: [id number] Received: 08/26/23 (Continued) Gross Description (Continued) Signed (signature on file) Evans Hart MD 08/27/231802 Specimen: [id number] Received: 08/26/23 Status: JEFF Villasenor Num: [id number] Spec Type: Surgical Subm Dr: Ena Whaley MD Tissues: A Colon Biopsy (TRANSV POLYP) B Colon Biopsy (DESC POLYP) C Colon Biopsy (SIGMOID POLYP) Procedures: HE/6, Gross/Micro L4/3 Patient: Rhoda Tapia [id number] (Continued) Specimen: [id number] Received: 08/26/23 (Continued) Gross Description (Continued) C. Received in formalin labeled with the patient's name, date of and sigmoid polyps (three) are three looney tissues ranging from 0.3 x 0.3 x 0.1 cm to 0.4 x 0.3 x 0.1 cm. Entirely submitted in one cassette labeled C1. CPT Codes 07149a0 Specimen: [id number] Received: 08/26/23 Status: JEFF Villasenor Num: [id number] Spec Type: Surgical Subm Dr: Ena Whaley MD Tissues: A Colon Biopsy (TRANSV POLYP) B Colon Biopsy (DESC POLYP) C Colon Biopsy (SIGMOID POLYP) Procedures: HE/6, Gross/Micro L4/3 Patient: Rhoda Tapia [id number] (Continued) Signed (signature on file) Evans Hart MD 08/27/23 [facility] RIGHT UPPER QUADRANTon 07-01-[address] [address] Ultrasound Report Signed Patient: RHODA TAPIA MR#: [id number] : 1950 Acct:[id number] Age/Sex: 73 / M ADM Date: 07/01/23 Loc: US Attending Dr: Shaikh Silas [place] Ordering Physician: Shaikh Hood Rosen Date of Service: 07/01/23 Procedure(s): US right upper quadrant Accession Number(s): [id number] cc: Shaikh Hood Rosen [place] [id number] Patient Name: RHODA TAPIA MRN: [id number] date: 1950 Sex: M Assigned Patient Location: [place] Current Patient Location: [place] Accession/Order Number: [id number] Exam Date: 07/01/2023 07:50 Report Date: 07/01/2023 [...] M.D. Signed By: 07/01/23904 DD/ 1 TD/TT: Acquisition Lead:FIDELINAadiology, Radiologist, - 07/01/2023 [facility] [place] [id number] Ultrasound Report Signed Patient: RHODA TAPIA MR#: [id number] : 1950 Acct:[id number] Age/Sex: 73 / M ADM Date: 07/01/23 Loc: US Attending Dr: Shaikh Silas [place] Ordering Physician: Shaikh Hood Rosen Date of Service: 07/01/23 Procedure(s): US right upper quadrant Accession Number(s): [id number] cc: Shaikh Hood Rosen [facility] [place] [id number] Patient Name: RHODA TAPIA MRN: [id number] date: 1950 Sex: M Assigned Patient Location: [place] Current Patient Location: [place] Accession/Order Number: [id number] Exam Date: 07/01/2023 07:50 Report Date: 07/01/2023 [...] M.D. Signed By: 07/01/23904 DD/ 1 TD/TT: Acquisition Lead: ANTHONY HealthcareRadiology Study observation (narrative)[facility] HealthcareUS RIGHT UPPER QUADRANTOrdered By: Radiologist Radiology on 37-29-9044OCES [employer] Work Phone: Vital Signs Date TimeVital SignValuePerforming OkiskecmcGzkksybp35-21-2891 13:08-0500Body pahfbq586.5 cmSteven Rusher DPM Work Phone: [phone] [place], [place] 5421711-04-2025 13:08-0500Body mass index (BMI) [Ratio]36.75 kg/w2Klfjqr Rusher DPM Work Phone: [phone]11-04-2025 13:08-0500Body crsopz130.36 kgSteven Rusher DPM Work Phone: [phone]10-28-2025 13:57-0400Body erhtua083.96 cmJessica Dorian DO Work Phone: [facility]10-28-2025 13:57-0400 Body mass index (BMI) [Ratio]36.1 kg/l9Yirmjiu Dorian DO Work Phone: [phone]10-28-2025 13:57-0400 Body qapbpw261.91 kgJessica Dorian DO Work Phone: [phone]10-28-2025 13:57-0400 Diastolic blood mm[Hg]Denisha Dorian DO Work Phone: [phone]10-28-2025 13:57-0400 Heart rate97 /minJessica Dorian DO Work Phone: [phone] [place], [place] 1142810-28-2025 13:57-0400 Respiratory rate20 /minJessica Dorian DO Work Phone: [phone] [place], [place] 1142810-28-2025 13:57-0400 SaO2% (BldA) [Mass fraction]97 %Denisha Dorian DO Work Phone: [phone] [place], [place] 1142810-28-2025 13:57-0400 Systolic blood ejrbbpxv180 mm[Hg]Denisha Dorian DO Work Phone: [phone] [place], [place] 1142809-25-2025 09:58-0400 Body .96 cmJessica Dorian DO Work Phone: [phone] [place], [place] 1142809-25-2025 09:58-0400 Body mass index (BMI) [Ratio]36.3 kg/c1Ngqcmdt Dorian DO Work Phone: [phone] [place], [place] 1142809-25-2025 09:58-0400 Body izdphk700.36 kgJessica Dorian DO Work Phone: [phone] [place], [place] 1142809-25-2025 09:58-0400 Diastolic blood fcgoywvi68 mm[Hg]Denisha Dorian DO Work Phone: [phone] [place], [place] 1142809-25-2025 09:58-0400 Heart rate74 /minJessica Dorian DO Work Phone: [phone] [place], [place] 1142809-25-2025 09:58-0400 Respiratory rate20 /minJessica Dorian DO Work Phone: [phone] [place], [place] 1142809-25-2025 09:58-0400 SaO2% (BldA) [Mass fraction]96 %Denisha Dorian DO Work Phone: [phone] [place], [place] 1142809-25-2025 09:58-0400 Systolic blood wurbklix615 mm[Hg]Denisha Dorian DO Work Phone: [facility]07-16-2025 12:54-0400 Body cyoskb863.5 cmSteven Rusher DPM Work Phone: [phone]07-16-2025 12:54-0400Body mass index (BMI) [Ratio]36.75 kg/f3Ygzjla Rusher DPM Work Phone: [phone]07-16-2025 12:54-0400Body emgxmx136.36 kgSteven Rusher DPM Work Phone: [phone]07-03-2025 13:19-0400Body eswlkf470.5 cmSteven Rusher DPM Work Phone: [phone] [place], [place] 5421707-03-2025 13:19-0400Body mass index (BMI) [Ratio]36.75 kg/p3Rtzjmo Rusher DPM Work Phone: [phone]07-03-2025 13:19-0400Body ebmqoe136.36 kgSteven Rusher DPM Work Phone: [phone]01-29-2025 14:16-0500Body cingre205.5 cmSteven Rusher DPM Work Phone: [phone]01-29-2025 14:16-0500Body mass index (BMI) [Ratio]36.77 kg/w3Sgffuh Rusher DPM Work Phone: [phone]01-29-2025 14:16-0500Body .45 kgSteven Rusher DPM Work Phone: [phone]11-21-2024 13:27-0500Body eeusyc470.5 cmBrittany Cam BURNER TECHNICIAN Work Phone: [facility] CenterMjlmhcykyq80-62-1358 13:27-0500Body mass index (BMI) [Ratio]36.77 kg/z7Rnqprzmq Cam BURNER TECHNICIAN Work Phone: [facility] CenterMibewzmxvl30-35-1069 13:27-0500Body temperature 96.21 [degF]Ale Cam BURNER TECHNICIAN Work Phone: [facility] CenterEjggkfublo27-35-2244 13:27-0500Body onfprg312.45 kgAle Cam BURNER TECHNICIAN Work Phone: [facility] CenterQdezynnnut53-12-6441 13:27-0500Diastolic blood jmcurtjj95 mm[Hg]Ale Acevespatrick BURNER TECHNICIAN Work Phone: [facility] CenterBxcoycqsgq42-67-0654 13:27-0500Heart rate86 /min Ale Cam BURNER TECHNICIAN Work Phone: [facility] CenterIhxngnyvai55-38-2832 13:27-0500Respiratory rate16 /minBrcyn Cam BURNER TECHNICIAN Work Phone: [facility] CenterPdvcvkggun92-63-9512 13:27-1114HgA8% (BldA) [Mass fraction]95 %Ale Cam BURNER TECHNICIAN Work Phone: [facility] CenterWlaxwaznda51-36-0006 13:27-0500Systolic blood gotuvqkp156 mm[Hg]Ale Acevespatrick BURNER TECHNICIAN Work Phone: [facility] CenterAkcniamqwd30-18-8130 14:10-0400Body nuzhkc070.5 cmSteven Rusher DPM Work Phone: [facility] CenterHqiehxtoxa75-54-0880 14:10-0400Body mass index (BMI) [Ratio]36.5 kg/e1Fclkxv Rusher DPM Work Phone: [phone] CenterBilqxsxgek67-57-0490 14:10-0400Body .45 kgSteven Rusher DPM Work Phone: [facility] CenterAedpodbpmf03-87-0844 13:14-0400Body acaguu269.5 cmBrittany Cam BURNER TECHNICIAN Work Phone: [facility] CenterUbzcuelalo66-01-6332 13:14-0400Body mass index (BMI) [Ratio]36.5 kg/k6Rmuorefl Cam BURNER TECHNICIAN Work Phone: [facility] CenterRxytbelehq10-68-8200 13:14-0400Body temperature 97.7 [degF]Ale Calitrick BURNER TECHNICIAN Work Phone: [facility] CenterNulqcwnyqc90-73-6377 13:14-0400Body jzcicj590.45 kgAle Calitrick BURNER TECHNICIAN Work Phone: [facility] CenterAibkfxzhvl85-81-8851 13:14-0400Diastolic blood duybibtv49 mm[Hg]Ale Acevespatrick BURNER TECHNICIAN Work Phone: [facility] CenterNxgcrysnbi04-42-3976 13:14-0400Heart rate59 /min Ale Acevespatrick BURNER TECHNICIAN Work Phone: [facility] HealthcareComment on above:97% I079-69-9769 13:14-0400Systolic blood splpbhgy538 mm[Hg]Ale Acevespatrick BURNER TECHNICIAN Work Phone: [facility] CenterGqptakgxcq97-77-9257 11:12-0400Diastolic blood kznewaiv73 mm[Hg]MD Sutherland Asaad Work Phone: [phone]03-26-2024 11:12-0400 Heart rate67 /minMD Imad Asaad Work Phone: [phone]03-26-2024 11:12-0400 Respiratory rate18 /minMD Imad Asaad Work Phone: [phone] [place], [place] 2001903-26-2024 11:12-0400 SaO2% (BldA) [Mass fraction]98 %MD Sutherland Asaad Work Phone: [phone]03-26-2024 11:12-0400 Systolic blood xlcuoirv139 mm[Hg]MD Sutherland Asaad Work Phone: [phone]03-26-2024 08:35-0400 Body qkboju182.5 cmMD Imad Asaad Work Phone: [phone] [place], [place] 2001903-26-2024 08:35-0400 Body ilkcel731.8 kgMD Imad Asaad Work Phone: [facility] Encounters Encounter DateEncounter TypeCare ProviderFacilityStart: 04-05-2025 End: 30-76-6714Asrjbz flowsheetSteven A Rusher DPM Work Phone: [facility] PodiatryStart: 04-05-2025 End: 49-54-2001Qktzwh flowsheetSteven A Rusher DPM Work Phone: noCre[facility] Centert PodiatryStart: 04-05-2025 End: 84-69-8273Spnqdoo encounter procedureSteven A Rusher DPM Work Phone: [facility] [place] PodiatryComment on above:Dermatophytosis of nail (Primary Dx); Dystrophic nail; Pain around toenail, right foot; Pain around toenail, left footStart: 04-05-2025 End: 56-11-1128fxeomzpkqfRYCMQT A RUSHERNot AvailableStart: 03-29-2025 End: 04-09-7038igkvqfksewGmytkqs Dorian DO Work Phone: -[facility] ClydeStart: 03-29-2025 End: 82-74-3106Kygbfln encounter procedureJessica Dorian DO-[facility] [place] Work Phone: Start: 62-23-3001Jfc-patient / Non-visitJessica Dorian DO-[facility] Work Phone: Start: 02-24-2025 End: 39-48-5576coxchmmkisVvljrfa Dorian DO Work Phone: [facility] Work Phone: Start: 02-24-2025 End: 84-24-4242Xluogfb encounter procedureJessica Dorian DO-[facility] [place] Work Phone: Start: 12-15-2024 End: 68-23-5014Afzres flowsheetSteven A Rusher DPM Work Phone: noms PODIATRYStart: 12-15-2024 End: 37-03-9338Pjwtky flowsheetSteven A Rusher DPM Work Phone: noms PODIATRYStart: 12-15-2024 End: 74-24-8235Phpqdj outpatient visit 25 minutesSteven A Rusher DPM Work Phone: noms PODIATRYComment on above:Calcific tendonitis of foot, right (Primary Dx); Peroneal tendonitis, right; Pain in right foot; Difficulty walkingStart: 12-15-2024 End: 88-70-3726zpyrndoqdoZRABRD A RUSHERNot AvailableStart: 12-02-2024 End: 56-11-9587Kobwyr flowsheetSteven A Rusher DPM Work Phone: NOYY PODIATRYStart: 12-02-2024 End: 23-00-4291Hpjkmo flowsheetSteven A Rusher DPM Work Phone: noms PODIATRYStart: 12-02-2024 End: 99-74-0031Lqxltpm encounter procedureSteven A Rusher DPM Work Phone: noms PODIATRYComment on above:Dermatophytosis of nail (Primary Dx); Dystrophic nail; Pain around toenail, right foot; Pain around toenail, left footStart: 12-02-2024 End: 89-97-9380vontxsrtnpABPOWD A RUSHERNot AvailableStart: 07-09-2024 End: 53-60-3097XkdvejJvtwycpf Fitzpatrick BURNER TECHNICIAN Work Phone: noms CWM FMComment on above:Primary hypertension (CMS/HCC); Alcoholic cirrhosis of liver without ascites (CMS/HCC); HypokalemiaStart: 06-30-2024 End: 39-02-9162Qlcbjky encounter procedureSteven A Rusher DPM Work Phone: noms PODIATRYComment on above:Dermatophytosis of nail (Primary Dx); Dystrophic nail; Pain around toenail, right foot; Pain around toenail, left footStart: 06-30-2024 End: 07-93-4362lbrwxwojheVUCZXL A RUSHERNot AvailableStart: 06-30-2024 End: 94-23-8778Tktwpy flowsheetSteven A Rusher DPM Work Phone: noms PODIATRYStart: 06-30-2024 End: 58-91-5060Hxwcki flowsheetSteven A Rusher DPM Work Phone: noms PODIATRYStart: 04-22-2024 End: 43-30-4569Htwdbc flowsheetAle Wintersk BURNER TECHNICIAN Work Phone: noms CWM FMStart: 04-22-2024 End: 85-11-5991Jsnkmi flowsheetAle Wintersk BURNER TECHNICIAN Work Phone: noms CW FMStart: 04-22-2024 End: 97-45-0530Hxixir outpatient visit 15 minutesBrcyn Cam BURNER TECHNICIAN Work Phone: noms CW FMComment on above:Alcoholic cirrhosis of liver without ascites (CMS/HCC) (Primary Dx); Primary hypertension (CMS/HCC); Wheezing; Suspected chronic obstructive pulmonary disease based on initial evaluation (CMS/HCC)Start: 04-22-2024 End: 53-29-1449vumxotkcqmTRVVHJBJ FITZPATRICKNot AvailableStart: 03-03-2024 End: 77-74-8465Iyppyxh encounter procedureSteven A Rusher DPM Work Phone: noms PODIATRYComment on above:Dermatophytosis of nail (Primary Dx); Dystrophic nail; Pain around toenail, right foot; Pain around toenail, left footStart: 03-03-2024 End: 34-28-3944Ztfwly flowsheetSteven A Rusher DPM Work Phone: noms PODIATRYStart: 03-03-2024 End: 08-82-2116Ecaisa flowsheetSteven A Rusher DPM Work Phone: noms PODIATRYStart: 01-22-2024 End: 49-13-2545Shzkhy flowsheetAle Tinocozpatrick BURNER TECHNICIAN Work Phone: noms CWM FMStart: 01-22-2024 End: 73-30-2156Mhfpvh flowsheetAle Tinocozpatrick BURNER TECHNICIAN Work Phone: noms CWM FMStart: 01-22-2024 End: 97-16-1828Khjuut outpatient visit 25 minutesBrcyn Cam BURNER TECHNICIAN Work Phone: noms CWM FMComment on above:Primary hypertension (CMS/HCC) (Primary Dx); Vitamin D deficiency; Alcohol use disorder; Hypokalemia; Alcoholic cirrhosis of liver without ascites (CMS/HCC); Strain of lumbar region, initial encounterStart: 08-26-2023 End: 14-07-1316imnieataysROJ STAFFFacility:[facility] Start: 21-33-0972Uzt-patient / Non-visitMD Imad Asaad Work Phone: [facility] Gastroenterology Work Phone: Start: 08-26-2023 End: 92-81-6219Hwgwrheev to same day surgery centerMD Imad Asaad Work Phone: [facility] Work Phone: Start: 08-26-2023 End: 08-59-6893lxkxghqmlcLFG [facility] Work Phone: Start: 68-13-8796Fzv-patient / Non-visitMD Imad Asaad Work Phone: [facility] Work Phone: Start: 23-88-4564Lok-patient / Non-visitMD Imad Asaad Work Phone: [facility] Gastroenterology Work Phone: start: 07-01-2023 End: 44-05-4436Ismcsacmr Result EncounterSdenis Rosen MD Work Phone: [facility] External Department UnsolicitedStart: 07-01-2023 End: 83-98-0346Dcvqdedil Result EncounterSdenis Rosen MD Work Phone: noms External Department Unsolicited Procedures DateProcedureProcedure DetailPerforming ClinicianStart: 82-51-9079Okwix foot complete minimum 3 viewsStgeno Roman DPM Work Phone: Start: 51-72-1228GuxqmqbuhfqKpunumne Cam BURNER TECHNICIAN Work Phone: Start: 65-86-4546NcacyznlkxcFA Imad Asaad Work Phone: Start: 36-74-0677PZ RIGHT UPPER QUADRANTSdenis Rosen MD Work Phone: Plan of Treatment DateCare ActivityDetailAuthorStart: 63-31-1535Mvgmcohjb for malignant neoplasm of colonNOMS HealthcareStart: 07-20-2025 End: 65-05-1850Faztyql encounter pskgjabvr66/18/2026 1:00 PM EST Procedure Visit [facility] [address] [place] [address] Chapin Roman DPRiver [address] [place], [place] [id number] [facility] PodiatryStart: 04-05-2025 End: 76-25-1365Ajbaqko encounter procedureNOMS PODIATRYComment on above: ArrivedStart: 44-95-2579Idtubfkxb vaccinationInfluenza Vaccine (#1)NOM HealthcareStart: 12-15-2024 End: 36-13-0726Ykztkah encounter baebkreoa09/16/2025 1:00 PM EDT Office Visit [facility] [address] [place] [address] Chapin Roman, MARIA ESTHER [address] [place], [place] [id number] ArrivedNOMS PODIATRYComment on above:ArrivedStart: 12-02-2024 End: 46-89-8390Nimqgcg encounter valuekzjp38/03/2025 1:30 PM EDT Procedure Visit [facility] [address] [facility] [address] Chapin Roman DP [address] [place] [address] ArrivedNOMS PODIATRYComment on above:ArrivedStart: 11-01-2024 End: 68-97-8730Atljatm encounter glnjfqobk90/02/2025 1:00 PM EDT Office Visit [facility] [address] [place] [address] Chapin Roman [facility] [address] [place] [address] NOMS PODIATRYStart: 07-19-2024 End: 77-84-7204Lzllhzv encounter gquguumhs67/17/2025 2:30 PM EST Office Visit [facility] [address] [place] [phone] Ale Cam, BURNER TECHNICIAN [address] [place] [phone] [facility] CWM FMStart: 06-30-2024 End: 77-66-7630Ymetytd encounter procedureNOMS PODIATRYComment on above: ArrivedStart: 04-22-2024 End: 95-75-4912Brncfdj encounter procedureNOMS CWM FMComment on above:Arrived Start: 03-03-2024 End: 79-34-0021Ehylpfg encounter procedureNOMS PODIATRYComment on above: ArrivedStart: 75-97-5647Edbgefekj vaccinationInfluenza Vaccine (#1)[facility] HealthcareStart: 00-62-5625WkhygzyaaCleveland Clinic Euclid Hospitaltart: 1969 Pneumococcal Vaccine: 65+ Years (1 of 2 - PCV)Pneumococcal Vaccine: 65+ Years (1 of 2 - PCV)[facility] HealthcareStart: 04-87-3436Nrzxktysewbw Vaccine: 65+ Years (1 of 2 - PCV)Pneumococcal Vaccine: 65+ Years (1 of 2 - PCV)[facility] HealthcareStart: 1949Medicare Annual Wellness (AWV)Medicare Annual Wellness (AWV)[facility] HealthcareStart: 46-52-2146Zscjlcxcb for malignant neoplasm of colonNORI HealthcareStart: 32-52-4534Yfjeftcut for malignant neoplasm of lungLung Cancer Screening Shared Decision MakingSt. Joseph Medical CenterComprehensive metabolic 2000 panel - Serum or PlasmaAcmc Healthcare System GlenbeighPatient EducationColon polyps Hemorrhoids (DC) Diverticulosis (DC)[facility] Work Phone: [facility] Immunizations Immunization DateImmunizationNotesCare CacgjgyxFpqmyoik63-90-8711gndfnifdi, seasonal, injectable, preservative freeSteven Rusher DPM Work Phone: [facility] CenterTqaljwtofg41-56-1537ukrzwpbdx virus vaccine, unspecified formulationSteven Rusher DPM Work Phone: [facility] Payers DatePayer CategoryPayerPolicy [id number] Health Insurance[facility] [place] [id number] [employer] [facility] [employer] [id number] 2021- Present [address] [address] [place] [address] [id number] [id number] [id number] 2..[id number] 2.840.1.860501.3.57[id number] 2..840.1.916350.3.57[id number] 2..840.1.540313.3.57[id number] 2.0.1.253640.3.57[id number] 2.840.1.29[id number] 2.840.1.703299.3.579.2.531 Social History DateTypeDetailFacilityStart: 77-97-3146Yazsxzo smoking status NHISSmoker (finding)[facility] Hospitaltart: 03-02-6043Log Assigned At [facility], Inctart: 06-24-2023 End: 40-46-6022Tcblhfk smoking status NHISSmokes tobacco dailyNORI Healthcare History of tobacco useCigarette SmokerNORI HealthcareStart: 11-18-2023 End: 42-39-2554Tofokarpey smoked current (pack per day) - Reported0.5NORI HealthcareHistory of tobacco usePassive smokerNOMS HealthcareStart: 06-24-2023 End: 61-64-6871Jcxpfrq use and exposureSmokeless tobacco non-userNORI Healthcare Start: 01-22-2024 End: 55-09-2718Ljdyceatz beverage intakeCurrent drinker of alcohol (finding)[facility] HealthcareStart: 01-22-2024 End: 70-95-4248Nylnbaj use panelNORI HealthcareStart: 21-42-1772Yvdmpvl Comment dailyNORI HealthcareStart: 87-74-0465Imx assigned at birthNot on fileNORI HealthcareSexMale (finding)[facility] Hospitaltart: 20-55-4533Ugj MaleBRIGHAM CITY COMM[facility]ITY [facility]OSPITAL Healthcare Goals DatePatient GoalDesired Activity/State Functional Status ZpysSwyytsavaiGyvvtbUtqtzexi82-87-7777Izribyt Health Questionnaire 2 item (PHQ- 2) [Reported][facility] Clinical Notes 08-26-2023 to 04-05-2025 Note Date & MkvoKizoJknrrxfo10-85-4869 History of Present illness Narrative* Chapin Roman, DPM - 04/05/2025 1:15 PM EST Images from the original note were not included. Subjective Patient ID: Rhoda Tapia is a 75 y.o. male who presents for Toenail Care (Established patient presents today for nail care. SS: 13). HPI Chief complaint: Symptomatic toenail deformity. Identifies [...] 1 tablet (5 mg) by mouth Daily (Patient taking differently: Take 5 mg by mouth Daily), Disp: 90 tablet, Rfl: 1 calcitriol (Rocaltrol) 0.25 MCG capsule, Take 1 capsule (0.25 mcg) by mouth Daily (Patient taking differently: Take 0.25 mcg by mouth Daily), Disp: 90 capsule, Rfl: 2 cyanocobalamin (Vitamin B-12) 50 MCG tablet, Take 1 tablet (50 mcg) by mouth Daily (Patient taking differently: Take 50 mcg by mouth Daily), Disp: 90 tablet, Rfl: 2 furosemide (Lasix) 20 MG tablet, Take 1 tablet (20 mg) by mouth Daily (Patient taking differently: Take 20 mg by mouth Daily), Disp: 90 tablet, Rfl: 1 potassium chloride CR (Klor-Con M10) 10 MEQ ER tablet, Take 1 tablet (10 mEq) by mouth Daily Do notcrush or chew. (Patient taking differently: Take 10 mEq by mouth Daily Do not crush or chew.), Disp: 90 tablet, Rfl: 1 spironolactone (Aldactone) 50 MG tablet, Take 1 tablet (50 mg) by mouth Daily (Patient taking differently: Take 50 mg by mouth Daily), Disp: 90 tablet, Rfl: 1 Allergies Patient has no known allergies. Past Surgical History Past Surgical History: Procedure Laterality Date BACK SURGERY 2001 Family History Family History Problem Relation Name Age of Onset Hypertension Mother Keila Hypertension Father Andrew Lung cancer Father Andrew Objective General assessment: Alert and oriented. Pleasant disposition. Independently ambulatory. Wearing systems eng footwear. Vascular: DP 1/4 bilateral. PT faintly palpable [...] drainage. Bilateral great toes: Onychogryphosis by history. Total with debris: TDO deformity multiple digits. Lesion pattern: Minimally raised IPK lesion 4th metatarsal condyle right foot; non-tender, non-inflamed.. Prominent pinch callus lesions bilateral first MTP joint. Orthopedic: Range of motion: Limited but functional ankle, subtalar and first MTP joint range of motion. Semi-rigid contractures of the central digits bilateral. Radiology: Assessment/Plan Symptomatic onychodystrophy/mycosis multiple digits as described. Status post lumbar spine surgery. Effective symptom relief of recent calcific tendonitis right foot. Plan: Remains well satisfied with a conservative and palliative care approach. Encourage AmLactin therapy daily as able to do so. Discussed appropriate supportive footwear. Follow up: 3-4 months recommended. Procedure: Toenail debridement: Aseptic technique: Hand and power instrumentation: Onychodebridement in length and thickness, with curettage of any cryptotic margins, all periungual debris; providingeffective symptom and pressure relief; reducing shoe and [...] understanding. Chapin Roman DPM documented in this encounterSt. Joseph Medical CenterUhdwxnrrxj28-27-5815 Evaluation note* Diagnosis Onset Date Resolution Status Admit Date B12 deficiency acuteSept2024 9:54amCirrhosis of liveracuteSept2024 9:54amColon polypsacuteSept2024 9:54amHTN (hypertension)acute February 24, 2025 9:54amHypokalemiaacuteSept2024 9:54amTobacco abuseacuteSept2024 9:54amVitamin D deficiencyacuteSept2024 9:54amCirrhosis of liveracuteOct2024 1:55pmElevated LFTsacute March 29, 2025 1:55pm [facility] Work Phone: 1(328) 995-452307-16-2025 History of Present illness Narrative* Chapin Roman, MARIA ESTHER - 12/15/2024 1:00 PM EDT Images from the original note were not included. Subjective Patient ID: Rhoda Tapia is a 74 y.o. male who presents for Ankle Pain (Rhoda Tapia is a 74 y.o.male who presents with Right ankle pain. NKI, [...] foot: Weight-bearing: DP, oblique, lateral: 12/15/2024: Unremarkable foracute osseous or joint pathology. No distinct fractures [...] difficult and not practical due to mobility andflexibility restraints. Discussed appropriate supportive footwear. Procedure: This note was created with the assistance of a speech recognition program. While intending to generate a timely document that accurately reflects the content of the visit, no guarantee can be provided that every grammatical or spelling mistake has been or will be identified or corrected. Thank you for your understanding. Chapin Roman DPM documented in this [facility]07-16-2025 Instructions* Patient Instructions* Chapin Roman DPM - 12/15/2024 1:00 PM EDT As noted documented in this [facility]07-03-2025 History of Present illness Narrative* Chapin Roman DPM - 12/02/2024 1:30 PM EDT Images from the original note were not included. Subjective Patient ID: Rhoda Tapia is a 74 y.o. male who presents for Nail care (Rhoda Tapia is a 74 y.o. male who [...] and oriented. Pleasant disposition. Independently ambulatory. Wearing systems eng shoes Vascular: DP 1/4 bilateral. PT faintly [...] of any cryptotic margins, all periungual debris; providingeffective symptom and pressure relief; reducing shoe and [...] understanding. Chapin Roman DPM documented in this [facility]07-03-2025 Instructions* Patient Instructions* Chapin Roman DPM - 12/02/2024 1:30 PM EDT As noted documented in this [facility]01-29-2025 History of Present illness Narrative* Chapin Roman DPM - 06/30/2024 2:15 PM EST Images from the original note were not included. Subjective Patient ID: Rhoda Tapia is a 74 y.o. male who [...] tablet (10 mEq) by mouth Daily Do notcrush or chew., Disp: 90 tablet, Rfl: 1 [...] and oriented. Pleasant disposition. Independently ambulatory. Wearing systems eng shoes Vascular: DP 1/4 bilateral. PT faintly [...] of any cryptotic margins, all periungual debris; providingeffective symptom and pressure relief; reducing shoe and [...] understanding. Chapin Roman DPM documented in this encounterSt. Joseph Medical CenterUbckacszsy16-54-1121 History of Present illness Narrative* Ale Cam NP - 04/22/2024 2:02 PM ESTAssociated Problem(s): Suspected chronic obstructive pulmonary disease based on initial evaluation ([facility]) Current 1 ppd smoker Has been [...] per week to please let me know. * Ale Cam NP - 04/22/2024 1:47 PM ESTAssociated Problem(s): HTN (hypertension) (CMS/HCC) Currently taking amlodipine Spironolactone Lasix Does not Check BP at home; BP is good in the office today. Denies orthostatic changes, dizziness, cough, shortness of breath, swelling in extremities. Continue current regimen. Given BP log, advised pt to record BP and bring log back with them to next visit. * Ale Cam NP - 04/22/2024 1:46 PM ESTAssociated Problem(s): Alcoholic cirrhosis of liver without ascites (CMS/HCC) Is currently still drinking; States he has only drank 3-4 times this month. Is starting to decreaseintake. Drinks Vodka mixed with cranberry juice or Powerade. Declines interest ion quitting at this time. Educated on hazardous health effects of chronic health issues. * Ale Cam NP - 04/22/2024 1:30 PM EST Images from the original note were not included. Subjective Patient ID: Rhoda Tapia is a 74 y.o. male who [...] Neurological: Negative for dizziness, tremors, syncope, weakness, light- headedness and headaches. Psychiatric/Behavioral: Negative for decreased concentration and suicidal ideas. The patient is notnervous/anxious. Hematological: Does not bruise/bleed easily. Endocrine: Negative [...] List Items Addressed This Visit HTN (hypertension) ([facility]) Currently taking amlodipine Spironolactone Lasix Does not Check BP at home; BP is good in the office today. Denies orthostatic changes, dizziness, cough, shortness of breath, swelling in extremities. Continue current regimen. Given BP log, advised pt to record BP and bring log back with them to next visit. Alcoholic cirrhosis of liver without ascites ([facility] [facility]) - Primary Is currently still drinking; States he has only drank 3-4 times this month. Is starting to decreaseintake. Drinks Vodka mixed with cranberry juice or Powerade. Declines interest ion quitting at this time. Educated on hazardous health effects of chronic health issues. Suspected chronic obstructive pulmonary disease based on initial evaluation ([facility]) Current 1 ppd smoker Has been [...] HFA) 90 mcg/act inhaler documented in this encounterSt. Joseph Medical [id number] History of Present illness Narrative* Chapin Roman DPM - 03/03/2024 2:15 PM EDT Images from the original note were not included. Subjective Patient ID: Rhoda Tapia is a 73 y.o. male who [...] tablet (10 mEq) by mouth Daily Do notcrush or chew., Disp: 90 tablet, Rfl: 1 spironolactone (Aldactone) 50 MG tablet, Take 1 tablet (50 mg) by mouth Daily, Disp: 90 tablet, Rfl: 1 Vitamin D, Ergocalciferol, 46659 units capsule, Take 1 capsule by mouth every 7 (seven) days, Disp:12 capsule, Rfl: 1 Allergies Patient has no known allergies. Past Surgical History Past Surgical History: Procedure Laterality Date BACK SURGERY 2001 Family History Family History Problem Relation Name Age of Onset Hypertension Mother Keila Hypertension Father Andrew Lung cancer Father Andrew Objective General assessment: Alert and oriented. Pleasant disposition. Independently ambulatory. Wearing systems eng shoes Vascular: DP 1/4 bilateral. PT faintly [...] of any cryptotic margins, all periungual debris; providingeffective symptom and pressure relief; reducing shoe and [...] understanding. Chapin Roman DPM documented in this [facility]10-02-2024 Instructions* Patient Instructions* Chapin Roman DPM - 03/03/2024 2:15 PM EDT As noted documented in this [facility]08-24-2024 History of Present illness Narrative* Ale Cam NP - 01/24/2024 9:02 AM EDTAssociated Problem(s): Low back strain Pulled muscle in [...] for temporary card, less than 6 months. * Ale Cam NP - 01/24/2024 8:55 AM EDTAssociated Problem(s): Vitamin D deficiency On vitamin D supplementation. Levels stable 6 months ago on last recheck. * Ale Cam NP - 01/24/2024 8:54 AM EDTAssociated Problem(s): Alcohol use disorder Is currently still drinking; 3 drinks, 3-4 ounces per day; Drinks Vodka mixed with cranberry juice or Powerade. Declines interest ion quitting at this time. Educated on hazardous health effects of chronic health issues. * Ale Cam NP - 01/22/2024 1:32 PM EDTAssociated Problem(s): Alcoholic cirrhosis of liver without ascites (CMS/HCC) Is currently still drinking; 3 drinks, 3-4 ounces per day; Drinks Vodka mixed with cranberry juice or Powerade. Declines interest ion quitting at this time. Educated on hazardous health effects of chronic health issues. * Ale Cam NP - 01/22/2024 1:32 PM EDTAssociated Problem(s): Hypokalemia 4.2 on lab work form 01/19/24 Continue Potassium as ordered. * Ale Cam NP - 01/22/2024 1:32 PM EDTAssociated Problem(s): HTN (hypertension) (CMS/HCC) looks good today in the office. Taking Amlodipine 5mg Spironlactone 50mg Lasix 20mg Denies orthostatic changes Denies edema to extremities Continue current regimen * Ale Cam NP - 01/22/2024 1:00 PM EDT Images from the original note were not included. Subjective Patient ID: Rhoda Tapia is a 73 y.o. male who [...] Negative for arthralgias, gait problem, joint swelling andmyalgias. Skin: Negative for rash. Neurological: Negative for dizziness, tremors, syncope, weakness, light- headedness and headaches. Psychiatric/Behavioral: Negative for decreased concentration and suicidal ideas. The patient is notnervous/anxious. Hematological: Does not bruise/bleed easily. Endocrine: Negative [...] List Items Addressed This Visit HTN (hypertension) ([facility]) - Primary looks good today in [...] (Rocaltrol) 0.25 MCG capsule Vitamin D, Ergocalciferol, 73067 units capsule Alcoholic cirrhosis of liver without [...] less than 6 months. documented in this encounterSt. Joseph Medical [id number] Instructions* Patient Instructions* Ale Cam NP - 01/22/2024 1:00 PM EDT Your blood pressure is TOO HIGH in the office today. Check your blood pressure at home 3 times per week, preferably in the afternoon. Goal <130/90. Record results in blood pressure log. Bring back with you to your next visit. Diet: Eat three meals per day. Breakfast, lunch, and dinner. Avoid snacking. Avoid eating after 5/6pm. Daily protein GOAL 35% of your intake; [...] if you need anything! documented in this encounterSt. Joseph Medical [id number] Procedure noteFirAdams County Regional Medical CenterEvaluation noteNo assessment information available [facility] Work Phone: Evaluation note* Diagnosis Dermatophytosis of nail- Primary Dystrophic nail Other specified disease of nail Pain around toenail, right foot Pain around toenail, left foot documented in this encounter [facility] HealthcareEvaluation note* Diagnosis Primary hypertension (CMS/HCC)- [...] initial evaluation (CMS/HCC) documented in this encounter [facility] HealthcareEvaluation note* Diagnosis Primary hypertension (CMS/HCC)- Primary Unspecified essential hypertension Vitamin D deficiency Alcohol use disorder Hypokalemia Hypopotassemia Alcoholic cirrhosis of liver without ascites (CMS/HCC) Strain of lumbar region, initial encounter documented in this encounter [facility] HealthcareEvaluation note* Diagnosis Primary hypertension (CMS/HCC)- [...] toenail, left foot documented in this encounter [facility] HealthcareEvaluation note* Diagnosis Primary hypertension (CMS/HCC)- [...] (CMS/HCC) Hypokalemia Hypopotassemia documented [facility] encounter [facility]* Diagnosis Primary hypertension- Primary Unspecified [...] toenail, left foot documented in this encounter [facility]* Diagnosis Primary hypertension- Primary Unspecified [...] Difficulty in walking documented in this encounter [facility] HealthcareEvaluation note* Diagnosis Onset Date Resolution Status Admit Date Cirrhosis of liver acuteSept2024 9:54amColon polypsacuteSept2024 9:54amHTN (hypertension)acuteSept2024 9:54amHypokalemiaacuteSept2024 9:54amTobacco abuseacuteSept2024 9:54am [facility] Work Phone: Evaluation note* Diagnosis Primary hypertension- Primary Unspecified essential [...] obstructive pulmonary disease based on initial evaluation Need for immunization against influenza Need for prophylactic vaccination and inoculation against influenza Dermatophytosis of nail- Primary Dystrophic nail Other specified disease of nail Pain around toenail, right foot Pain around toenail, left foot documented in this encounter [facility] HealthcareHistory and physical note Author Ena Whaley [facility] August 26, 2023 10:09amNote Date/TimeMar2023 10:09[place] [address] Gastroenterology H&P Signed Patient: Rhoda Tapia MR#: [id number] : 1950 Acct:[id number] Age/Sex: 73 / M Adm Date: 4 Loc: Room: Type: [facility] Attending Dr: Ena Whaley MD Copies to: NON STAFF Ena Whaley MD~ Date of Service: 08/26/2023 HISTORY & PHYSICAL: Patient's history with special attention to the cardiovascular, pulmonary systems and the current problem was reviewed with the patient immediately prior to the procedure. Present medications and doses reviewed in the EMR. Allergies and pertinent laboratory tests were also re viewedat this time in the EMR. The physical [...] signed by Ena Whaley MD> 08/26/23 [facility] [facility] Work Phone: Hospital Discharge instructions [...] NOT operate machinery such as power tools, Lulun mowers, snow leemailwers, sewing machines, etc. for 24 hours. - [...] years. -Follow up with PCP. -Office number [phone]. [facility] Work Phone: Reason for referral (narrative)No reason for referral information availableWadsworth-R[facility]man Hospital Work Phone: Chief Complaint and Reason for [...] 9:54am Tobacco abuse February 24, 2025 9:54am Chief Complaint Admit Date established patient February 24, 2025 9:54am Stomach Pain/Coughing March 29, 2025 1:55pm Reason for Visit Admit Date B12 deficiency February 24, 2025 9:54am Cirrhosis of liver February 24, 2025 9:54am Colon polyps February 24, 2025 9:54am HTN (hypertension) February 24, 2025 9:54am Hypokalemia February 24, 2025 9:54am Tobacco abuse February 24, 2025 9:54am Vitamin D deficiency February 24 9:54am Cirrhosis of liver March 29, 2025 1 :55pm Elevated LFTs March 29, 2025 1 :55pm Family History No Family History Records Found Relationship Condition Age at Onset Recorded Date/T farzana sister Diabetes mellitus Unknown HypertensionUnknownfatherMalignant neoplasm of lungUnknownNot Specified HypertensionUnknown Relationship Condition Age at Onset Recorded Date/T farzana sister Diabetes mellitus Unknown HypertensionUnknownfatherMalignant neoplasm of lungUnknownmotherHypertension Unknown Advance Directives No Advanced Directives Records [...] Start: August 26, 2023 End: August 26, 2023NON STAFFPrimary Care ProviderActiveStart: August 26, 2023 End: August 26, 2023 Team Status: Active Member Role Status Dates Ena Whaley MD Attending Provider, Other Provider Act hailey Start: August 26, 2023 NON STAFFPrimary Care ProviderActiveStart: August 26, 2023 Team MemberRelationshipSpecialtyStart DateEnd Date Jose Raul Valenzuela MD [address] [place] [address] PCP - Generalmily Medicine01/05/24 Ale Cam NP [address] [place] [phone] [facility] Medicine01/05/24Team MemberRelationshipSpecialtyStart DateEnd Date Jose Raul Valenzuela MD [address] [place] [address] PCP - GeneralFamily Medicine01/05/24 Ale Cam NP [address] [place] [address] Nurse Practitionermily Medicine01/05/24Team MemberRelationshipSpecialtyStart DateEnd Date Jose Raul Valenzuela MD [address] [place] [address] PCP - GeneralFamily Medicine01/05/24 Ale Cam NP [address] [place] [address] [facility] Medicine01/05/24Team MemberRelationshipSpecialtyStart DateEnd Date Jose Raul Valenzuela MD [address] [place] [address] PCP - [facility] Medicine01/05/24 Ale Cam, TYLER [address] [place] [address] Nurse [facility]er[facility]01/05/24Team MemberRelationshipSpecialtyStart DateEnd Date Jose Raul Valenzuela MD [address] [place] [address] PCP - GeneralEast [facility]01/05/24 Ale Cam, TYLER [address] [place] [address] Nurse PractitionerEast [facility]01/05/24Team MemberRelationshipSpecialtyStart DateEnd Date Jose Raul Valenzuela MD [address] [place] [address] PCP - Generalmi Medicine01/05/24 Ale Cam NP [address] [place] [address] Nurse PractitionerEast [facility]01/05/24Team MemberRelationshipSpecialtyStart DateEnd Date Jose Raul Valenzuela MD [address] [place] [address] PCP - [facility] Medicine01/05/24 Ale Cam NP [address] [place] [address] Nurse PractitionerEast [facility]01/05/24Team MemberRelationshipSpecialtyStart DateEnd Date Jose Raul Valenzuela MD [address] [place] [address] PCP - [facility]01/05/24 Ale Cam NP [address] [place] [address] Nurse PractitionerEast [facility]01/05/24Team MemberRelationshipSpecialtyStart DateEnd Date Jose Raul Valenzuela MD [address] [place] [address] PCP - GeneralEast [facility]01/05/24 Ale Cam NP [address] [place] [address] Nurse PractitionerEast [facility]01/05/24 Team Status: Active Member Role Status Dates Denisha Mata DO Primary Care Provider Active Team Status: Inactive Member Role Status Dates Denisha Mata DO Primary Care Provider Active S tart: February 24, 2025 End: February 24, 2025Denisha Mata DOAttending ProviderActiveStart: February 24, 2025 End: February 24, 2025 Team Status: Active Member Role/Relationship Status Dates Denisha Dorian , DO Primary Care Provider Active Team Status: Inactive Member Role/Relationship Status Dates Denisha Dorian , DO Primary Care Provider Active S tart: February 24, 2025 End: February 24, 2025Abrahanssica Dorian , DOAttending ProviderActiveStart: February 24, 2025 End: February 24, 2025 Team Status: Active Member Role/Relationship Status Dates Denisha Dorian , DO Primary Care Provider Active S tart: February 25, 2025 Denisha Dorian , DOAttending ProviderActiveStart: February 25, 2025 Team Status: Inactive Member Role/Relationship Status Dates Denisha Dorian , DO Primary Care Provider Active S tart: March 29, 2025 End: March 29, 2025Jeisabellica Dorian , DOAttending ProviderActiveStart: March 29, 2025 End: March 29, 2025Team MemberRelationshipSpecialtyStart DateEnd Date Shaikh Rosen MD PCP - GeneralInternal Medicine Jose Raul Valenzuela MD PCP - GeneralFamily Medicine Ale Cam NP Nurse PractitionerFamily Medicine (unrecognized sect ion and content) No Status Records FoundNo Status Records Found INFORMATION SOURCE (unrecogn ized section and content) DATE CREATED AUTHOR 08/29/2023 [facility] DATE CREATED AUTHOR AUTHOR'S ORGANIZ ATION 04/07/2025 [facility] EPIC Reason for Visit (unrecogniz ed section and content) ReasonCommentsToenail CareSS: 11ReasonCommentsHypertensionFollow-upReason CommentsFollow-upCOPD, handicap placard paperwork, MED REFILLSReasonCommentsMed RefillReasonCommentsNail careRhoda Tapia is a 74 y.o. male who presents for Toenail Care (SS: 11).ReasonCommentsFoot PainThomas Melissa Tapia is a 74 y.o. male who presents with Right foot pain. NKI, Patient relates was painfulwith swelling over the weekend, feeling better today. Patient used crutches over the weekend. SS 13ReasonCommentsToenail CareEstablished patient presents today for nail care. SS: 13 Goals (unrecognized section and content) Goals may be documented in a n alternate sectionGoals may be documented in an alternate section FOR RECORDS PERTAINING TO PATIENTS [...] BE BASED ON THE PRIMARY CLINICAL RECORDS. [facility] [employer] provides no warranty or guarantee of the accuracy or completeness of information in this document.
--- NOTE | 2025-04-15 14:29 | XR_ITS ---
[address] [address] Patient Name: RHODA RIVAS MRN: [id number] date: 1950 Sex: M Assigned Patient Location: [facility] Current Patient Location: [facility] Accession/Order Number: [id number] Exam Date: 04/15/2025 14:38 Report Date: 04/15/2025 16:40 At the request of: DENISHA MATA DO Procedure: XR chest 2V PA AND LATERAL CHEST: CLINICAL HISTORY: exacerbation of copd, acute costochondritis COMPARISON: None FINDINGS: Cardiothymic emphysematous changes. Unremarkable cardiomediastinal. No focal airspace opacity effusion or pneumothorax. Multilevel degenerative changes of the thoracic spine. XR/XR chest 2V IMPRESSION: NO ACUTE CARDIOPULMONARY ABNORMALITY. CHRONIC EMPHYSEMATOUS CHANGE. Impression dictated by: Yon Garcia M.D. 04/15/2025 4:40 PM Dictation Location: [place] [address] Electronically authenticated by: [id number] Y Date: 04/15/2025 16:40
== END 2025-04-15 14:19 | disposition home or self-care (01) ==
LOC: RAD 14:20
PROVIDERS: PCP Family Medicine; Visit Provider Family Medicine
DX: J44.1 Chronic obstructive pulmonary disease with (acute) exacerbation (principal); M94.0 Chondrocostal junction syndrome [Tietze]; R79.89 Other specified abnormal findings of blood chemistry; K70.30 Alcoholic cirrhosis of liver without ascites
CPT/HCPCS: 71046

== ENCOUNTER 2025-04-19 07:33 | Outpatient (OUT) | payer MEDICARE, OTHER, SELFPAY ==
--- OUTSIDE RECORDS SUMMARY | 2025-04-14 07:01 | XMS_ITS | Continuity of Care Document ---
Author Organization [facility] Address [address] [place] [address] Phone Care Team Providers Care Diamond Powder Technician Name Role Phone Dorian Amy DO Primary Care Provider Dorian, Amy DO Attending Provider Care Teams Patient Care Team Team Status: Active Member Role/Relationship Status Dates Amy Dorian , DO Primary Care Provider Active Visit Care Team Team Status: Inactive Member Role/Relationship Status Dates Amy Dorian , DO Primary Care Provider Active S tart: February 24, 2025 End: February 24, 2025Jessica Dorian , DOAttending ProviderActiveStart: February 24, 2025 End: February 24, 2025 Visit Care Team Team Status: Active Member Role/Relationship Status Dates Amy Dorian , DO Primary Care Provider Active S tart: February 25, 2025 Amy Dorian , DOAttending ProviderActiveStart: February 25, 2025 Visit Care Team Team Status: Inactive Member Role/Relationship Status Dates Amy Dorian , DO Primary Care Provider Active S tart: March 29, 2025 End: March 29, 2025Jessica Dorian , DOAttending ProviderActiveStart: March 29, 2025 End: March 29, 2025 Patient Care Team Team Status: Inactive Member Role/Relationship Status Dates Amy Dorian , DO Primary Care Provider Active S tart: April 14, 2025 End: April 14, 2025Jessica Dorian , DOAttending ProviderActiveStart: April 14, 2025 End: April 14, 2025 Chief Complaint and Reason for Visit Chief Complaint Admit Date established patient February 24, 2025 9:54am Stomach Pain/Coughing March 29, 2025 1:55pm consultation on liver cancer April 142024 11:09am Reason for Visit Admit Date B12 deficiency February 24, 2025 9:54am Cirrhosis of liver February 24, 2025 9:54am Colon polyps February 24, 2025 9:54am HTN (hypertension) February 24, 2025 9:54am Hypokalemia February 24, 2025 9:54am Tobacco abuse February 24, 2025 9:54am Vitamin D deficiency February 24 9:54am Acute costochondritis March 29, 2025 1:55pm Acute exacerbation of chroni c obstructive pulmonary disease (COPD) March 29, 2025 1:55pm Elevated LFTs March 29, 2025 1 :55pm Allergies, Adverse Reactions, Alerts Allergen Type Severity Reaction Last Updated Verified Status No Known Allergies Allergy Unknown April 14, 2025 11:17amYesActive Social History Smoking Status Status Start Date End Date Date of Observa tion Smokes tobacco daily (finding) February 24, 2025 10:05am Observation Status Observation Response Date of Response Legal Sex [facility] (finding) [facility] Family History Relationship Condition Age at Onset Recorded Date/T farzana sister Diabetes mellitus Unknown HypertensionUnknownfatherMalignant neoplasm of lungUnknownHypertensionUnknown motherHypertensionUnknown Problems Active Problems Problem Diagnosis/Recorded Date Onset Date Stat us B12 deficiency February 24, 2025 9:35am Unknown Active Elevated LFTs March 29, 2025 1:07pm Unknown A ctive Cirrhosis of liver August 26, 2023 7:37am Unknown Active Tobacco abuse February 24, 2025 9:32am Unknown Active Acute exacerbation of chroni c obstructive pulmonary disease (COPD) March 29, 2025 1:34pm Unknown Active HTN (hypertension) August 26, 2023 7:37am Unknown Active Colon polyps August 26, 2023 7:37am Unknown Acti ve Vitamin D deficiency February 24, 2025 9:39am Unkno wn Active Acute costochondritis March 29, 2025 1:36pm Unknow n Active Hypokalemia February 24, 2025 9:03am Unknown Active Medications Medication Status Dose Units Route Directions Qty Days Refills S tart Date Stop Date End Date Reason(s) Instructions Adherence Valsartan-Hydrochlorothiazide 320-25 mg tablet Discontinued 1 TAB PO Daily August 25, 2023 11:00pmSept2024 9:25amSpironolactone 25 mg tablet Mlopkzbwauae58RPNZLauueFnyug 2023 11:00pmSept2024 9:43am Ergocalciferol (Vitamin D2) 1,250 mcg (50,000 unit) jokxcfeApwxivngydap7062YACTU DailyUniversity [facility] 2023 11:00pmSept2024 9:43amMecobalamin (Vitamin B12) 1,000 mcg tablet,nvnjacsfKieyui2202FQCCZCulhqGzerhwgir 2024 11:00pm Complies with drug therapyAmlodipine 5 mg xbydpjDehdtafxfcah8CKNRJlixmWfiwolfgc 2024 11:00pmSept2024 9:43amFurosemide 20 mg tabletDiscontinued 20MGPODailySeptember 2024 11:00pmSept2024 9:43amPotassium Chloride 10 mEq tablet,ER particles/hxxqgvcdHswyeekwksrm38OZRITndgbhAvtumwrvc 2024 11:00pmSept2024 9:43amAmlodipine 5 mg zdhawjNvuyaf5TFWU Csjsl396Cqfwpeaju2024 9:40amComplies with drug therapyErgocalciferol (Vitamin D2) 1,250 mcg (50,000 unit) icdllsyQpsrmqutxjiy0734CAYOYVosvm409 February 24, 2025 9:41amSept2024 2:37pmFurosemide 20 mg tablet Insmfg30VBZXKcfmk385Isrzonxus 25th, 2025 9:41amComplies with drug therapy Spironolactone 25 mg dxpflvEjmmkv46EYYVOfaly010Zjitgrdcn 25th, 2025 9:42am Complies with drug therapyPotassium Chloride 10 mEq tablet,ER particles/crystals Sherlr76HGCHHrhzoh697Wwqgwnuzi 25th, 2025 9:42amComplies with drug therapy Ergocalciferol (Vitamin D2) 1,250 mcg (50,000 unit) jcgatqsPfzmkr6549RZROMjkhmv bsbp722Stumlmmth 25th, 2025 2:37pmComplies with drug therapyAzithromycin 250 mg izptpzKavnil8DY.LOLLBLL62Aecmnda 2024 11:00pmFor 250 mg dose pack: take 500 mg today (day 1), then 250 mg for 4 days (days 2-5) POComplies with drug therapyPrednisone 20 mg rpggduLfwnonwjyppo10AQYQJewnt fawjp0240Fbsykmp2024 11:00pmNovember 2024 11:17amBenzonatate 200 mg yqewdofZslfke714RGQA Twice daily as needed for qjgrc7310WyrtaugMarch 28, 2025 11:00pmComplies with drug therapyAlbuterol Sulfate 90 mcg/actuation HFA aerosol rwfubrbPyzmph0WHZ INHALATIONEvery 6 hours as needed for shortness of breath or wheezing8.50October 2024 11:00pmComplies with drug therapy Relevant Diagnostic Tests and/or Laboratory Data Laboratory Results Test Collection Date/Time Result Date/Time Result Interpretation Reference Range Result Comment Performing Site Vitamin B12 Level February 25, 2025 8:57am Septembe r 2024 8:57am 859 pg/mL [id number] at: - [facility] [id number] Director: Johnathon Rosenbaum PhD, Phone: [phone]-Ynccrvk Vitamin D TotalSept2024 8:57amSept2024 8:57am51.0 ng/mL <20 ng/mL Vit D ufgnlgenu03-<30 ng/mL Vit D qlkmacszprhm79-693 ng/mL Vit D sufficient>100 ng/mL Potential ToxicityCholesterol/HDL RatioSept2024 8:57amSeptember 2024 8:57am3.03.3 - 4.4 LOW RISK4.4 - 7.1 AVERAGE RISK7.1 - 11.0 MODERATE RISK>11.0 HIGH RISKAnion GapSept2024 8:57amSeptember 2024 8:57am7.9Basophils # (Auto)February 25, 2025 8:57amSept2024 8:57am0.0 10 3/uL0.0-0.1Cholesterol LevelSeptember 2024 8:57am February 25, 2025 8:57qx780 mg/dL<=200Albumin/Globulin RatioSeptember 2024 8:57amSept2024 8:57am0.5Basophils (%) (Auto)February 25, 2025 8:57amSept2024 8:57am0.3 %0.2-2.0HDL CholesterolSept2024 8:57amSept2024 8:57am53 mg/dL40-60> or =60 mg/dl - LOW CARDIOVASCULAR RISK<40 mg/dl - HIGH CARDIOVASCULAR RISKAlbuminSeptember 2024 8:57amSept2024 8:57am2.6 g/dLBelow low normal3.4-5.0Eosinophils # (Auto)February 25, 2025 8:57amSept2024 8:57am0.0 10 3/uL0.0-0.7 LDL Cholesterol, CalculatedSept2024 8:57amSept2024 8:57am91.6 mg/dL<100 mg/dl UFCQJKW397-499 mg/dl NEAR OR ABOVE YETGWVQ536-260 mg/dl BORDERLINE ZCHD308-438 mg/dl HIGH>190 mg/dl VERY HIGHAlkaline Phosphatase February 25, 2025 8:57amSept2024 8:45yn875 U/LAbove high normal 46-116Eosinophils (%) (Auto)February 25, 2025 8:57amSept2024 8:57am0.5 %Below low normal0.9-7.0Triglycerides LevelSeptember 2024 8:57am February 25, 2025 8:57am77 mg/dL<=150Alanine Aminotransferase (ALT/SGPT) February 25, 2025 8:57amSept2024 8:57am75 U/LAbove high normal 16-63HematocritSept2024 8:57amSept2024 8:57am46.4 % 42.0-54.0VLDL CholesterolSept2024 8:57amSept2024 8:57am 15.4 mg/dLAspartate Amino Transf (AST/SGOT)February 25, 2025 8:57amSept2024 8:57am78 U/LAbove high bwnduq97-41EddhylzclfRfnqeopmq 26th, 2025 8:57amSept2024 8:57am15.4 g/dL14.0-18.0BUN/Creatinine RatioSeptember 2024 8:57amSept2024 8:57am9.2Immature Granulocyte # (Auto) February 25, 2025 8:57amSept2024 8:57am0.02 10 3/uL0.00-0.03Blood Urea NitrogenSept2024 8:57amSept2024 8:57am10.0 mg/dL 7.0-18.0Immature Granulocyte % (Auto)February 25, 2025 8:57amSept2024 8:57am0.3 %0.0-0.5Calcium LevelSept2024 8:57amSept2024 8:57am9.2 mg/dL8.5-10.1Lymphocytes # (Auto)February 25, 2025 8:57am February 25, 2025 8:57am1.0 10 3/uLBelow low normal1.2-3.8Chloride Level February 25, 2025 8:57amSept2024 8:57am99 mmol/V90-536Pizqqzajrgq (%) (Auto)February 25, 2025 8:57amSept2024 8:57am13.3 %Below low ajwutj80.5-60.0Carbon Dioxide LevelSept2024 8:57amSept2024 8:57am32.4 mmol/LAbove high mamndg85.0-32.0Mean Corpuscular Hemoglobin February 25, 2025 8:57amSeptember 2024 8:57am31.1 pg25.9-34.0Creatinine February 25, 2025 8:57amSept2024 8:57am1.09 mg/dL0.70-1.30Mean Corpuscular Hemoglobin ConcentSept2024 8:57amSept2024 8:57am33.2 g/dL29.9-35.2Estimated GFR ()February 25, 2025 8:57amSept2024 8:57am>60>=60 mL/min/1.73m 2Mean Corpuscular Volume February 25, 2025 8:57amSept2024 8:57am93.7 fL80.0-94.0Estimated GFR (Non- AmericanSept2024 8:57amSept2024 8:57am >60>=60 mL/min/1.73m 2Monocytes # (Auto)February 25, 2025 8:57amSept2024 8:57am0.9 10 3/uLAbove high normal0.3-0.8GlobulinSept2024 8:57amSept2024 8:57am5.3 g/dLMonocytes (%) (Auto)February 25, 2025 8:57amSept2024 8:57am11.7 %1.7-12.0Glucose LevelSept2024 8:57amSept2024 8:31ri533 mg/wP92-095Fzzt Platelet Volume February 25, 2025 8:57amSept2024 8:57am11.2 fL9.5-13.5Potassium LevelSept2024 8:57amSept2024 8:57am4.3 mmol/L3.5-5.1 Neutrophils # (Auto)February 25, 2025 8:57amSept2024 8:57am5.6 10 3/uL1.4-6.5Sodium LevelSeptember 2024 8:57amSept2024 8:35fm357 mmol/LBelow low -746Geeylevmaft (%) (Auto)February 25, 2025 8:57am February 25, 2025 8:57am73.9 %43.0-75.0Total BilirubinSept2024 8:57amSept2024 8:57am2.3 mg/dLAbove high normal0.2-1.0Platelet Count February 25, 2025 8:57amSept2024 8:82pf370 10 3/nY396-918Xhsss ProteinSept2024 8:57amSept2024 8:57am7.9 g/dL6.4-8.2Red Blood CountSept2024 8:57amSept2024 8:57am4.95 10 6/uL 4.70-6.10Red Cell Distribution WidthSept2024 8:57amSept2024 8:57am13.6 %11.0-15.0Corrected White Blood CountSept2024 8:57am February 25, 2025 8:57am7.5 10 3/uL4.0-11.0 Vital Signs Vital Reading Result Reference Range Collection Date/Time Height 74 [in_i] February 24, 2025 8:76uqNpjzfo758.36 kgSept2024 8:58amHeart Rate 74 /qmg43-610KxcwxcypgFebruary 24, 2025 8:58amRespiratory rate20 /sxf83-54Bhxjyygff 25th, 2025 8:58amOxygen saturation by Pulse bzwxnhoa84 %95-100Se2024 8:58amBP Hdeuzoqo076 mm[Hg]100-140Sept2024 8:58amBP Oasycylkt07 mm[Hg]60-100Sept2024 8:58amBMI (Body Mass Index)36.3 kg/y1Nneqhtjzb2024 8:16kaIdyxlq82 [in_i]March 29, 2025 12:82ccCctdrg526.91 kg March 29, 2025 12:57pmHeart Rate97 /vdr68-605Leowqvq 2024 12:57pm Respiratory rate20 /pls52-61Jgmcgso 2024 12:57pmOxygen saturation by Pulse jdpmeasl74 %95-100October 2024 12:57pmBP Uotfyowb014 mm[Hg]100-140October 2024 12:57pmBP Lbaizennb17 mm[Hg]60-100October 2024 12:57pmBMI (Body Mass Index)36.1 kg/t9Cgnhhdo 2024 12:63ssFcjuvw50 [in_i]April 14, 2025 11:19maKkinyz221.00 kgLifecare Hospitals [facility]2024 11:12amHeart Rate90 /min 60-100April 14, 2025 11:12amRespiratory rate24 /fun19-92Jevcpjic 13th, 2025 11:12amOxygen saturation by Pulse mfatfiug72 %95-100Nov2024 11:12am BP Anpiqune324 mm[Hg]100-140Nov2024 11:12amBP Ntukauebw75 mm[Hg] 60-100Nov2024 11:12amBMI (Body Mass Index)35.9 kg/k8Mhaxzotk2024 11:12am Advance Directives Advance Directive Response Recorded Date/ Time Advance Directives No July 1:44pm Insurance Providers Guarantor Glenn Tapia Address [address] [facility] [address]Kwtetxb Info.Home Phone: Payer Group Member ID Coverage Type Subscriber Relationship to Subscriber Effective Date Expiration Date Medicare [id number] Jump Id: [id number] [address] [facility] [address] Home Phone: Email: [email or web address] [address] [address] [facility] [address] Work Phone: [phone] Jump Id: [id number] [address] [facility] [address] Home Phone: Email: [email or web address] Encounters Encounter Location(s) Arrival/Admit Date Discharge/Departure Date Discharge/Departure Disposition Provider(s) Departed Physician/ Provider Office Visit -[facility] Family Medicine Mervin February 24, 2025 9:54am February 24, 2025 10:43am Discharged to home care or self care (routine discharge) Amy Alarcon DO Non-patient / Non-visit -[facility] February 25, 2025 9:57am STONE Rosseparted Physician/Provider Office Visit-[facility] Family Medicine [facility] 2024 1:55pmOctober 2024 2:30pmDischarged to home care or self care (routine discharge)STONE Rosseparted Physician/Provider Office Visit-[facility] 11:09amNovember 2024 12:00pmDischarged to home care or self care (routine discharge)Amy Alarcon DO Recent Diagnosis Onset Date Admit Date B12 deficiency Unknown February 24, 2025 9:54am Cirrhosis of liver Unknown January 9:54am Colon polyps Unknown February 24, 2025 9:54am HTN (hypertension) Unknown January 9:54am Hypokalemia Unknown February 24, 2025 9:54am Tobacco abuse Unknown February 24, 2025 9:54am Vitamin D deficiency Unknown February 012024 9:54am Acute costochondritis Unknown March 292024 1:55pm Acute exacerbation of chroni c obstructive pulmonary disease (COPD) Unknown March 29, 2025 1:55pm Elevated LFTs Unknown March 29 1:55pm Assessments Diagnosis Onset Date Resolution Status Admit Date B12 deficiency acuteSept2024 9:54amCirrhosis of liveracuteSept2024 9:54amColon polypsacuteSept2024 9:54amHTN (hypertension)acute February 24, 2025 9:54amHypokalemiaacuteSept2024 9:54amTobacco abuseacuteSept2024 9:54amVitamin D deficiencyacuteSeptember 2024 9:54amAcute costochondritisacuteOctober 2024 1:55pmAcute exacerbation of chronic obstructive pulmonary disease (COPD)acuteOctober 2024 1:55pm Elevated LFTsacuteOctober 2024 1:55pm Plan of Treatment Author [facility] Alarcon [facility] HospitalAuthoredSeptember 2024 9:54amHas been cutting back on his own, down to 1/2 pack from 1.5 PPD; patient refuses any Lung Cancer screening. recheck potassium level, given refill of KlorCon. Patient with recent colonoscopy 2023 Patient does not wish to follow with GI. Continue spironolactone, Will check LFT's and lipids, cbc patient's blood pressure has been nice and controlled on the amlodipine and spironolactone, Will continue these, refills given. continue supplement but recheck levels continue supplement but recheck levels Given order for fasting labs, return to clinic 6 months, 90 day refills given. Author Amy Alarcon [facility] HospitalAutmagruder memorial hospitalOcte[facility] 2024 1:37pmhistory of cirrhosis, still drinks alcohol, patient declines further work up at this time. Pulse ox 97% on room air. Will treat with azithromycin, prednisone x 7 days and albuterol inhaler to use TID for the next 3 days then PRN. He may use Tessalon for cough. Instructed patient to go to ER with any fevers, worsening shortness of breath. Call clininc and let us know how he is feeling. start prednisone Return to clinic if not improved. Future Tests Future scheduled test information is unavailable Pending Tests Test Name Ordered Date Scheduled Date US abdomen limited April 14, 2025 11:46am XR chest 2V*April 14, 2025 11:48amComprehensive Metabolic PanelSept2024 9:33am Future Visits Future appointment information is unavailable Future Procedures Procedure Name Ordered Date Scheduled Date Vitamin B12 February 24, 2025 9:33am Future Medications Future medication information is unavailable Patient Instructions Patient instructions are unavailable
--- OUTSIDE RECORDS SUMMARY | 2025-04-19 07:37 | XMS_ITS | CCD ---
Author Organization [facility] Care Team Providers Care Probate Judge Name Role Phone MD Ena Whaley Attending Provider NON STAFF Primary Care Provider Unavailabl e NON STAFF Primary Care Unavailable Ena Whaley Attending Unavailable Ena Whaley Admitting Unavailable Jose Raul Valenzuela MD Primary Care Provider [phone] Dorina SCOTT, Ale Unavailable Unavailable Primary Care Provider Unavailabl e Denisha Mata DO Primary Care Provider DorianDenisha dennis DO Attending Provider Shaikh Rosen MD Primary Care Provider [phone] Jose Raul Valenzuela MD Primary Care Provider Dorina SCOTT, Ale Unavailable CHAPIN ROMAN Attending Unavailable CHAPIN ROMAN Attending Unavailable ALE CAM Attending Unavailabl e CHAPIN ROMAN Attending Unavailable CHAPIN ROMAN Referring Unavailable CHAPIN ROMAN Attending Unavailable Medications Current Medications MedicationDrug Class(es)DatesSig (Normalized)Sig (Original)[id number] 200 actuat albuterol 0.09 mg/actuat metered dose inhaler (13 sources)beta2-Adrenergic AgonistStart: 89-77-2660Ehhykddsw Sulfate 90 mcg/actuation HFA aerosol inhaler Active 2 INH INHALATION Every 6 hours as need ed for shortness of breath or wheezing 8.5 0 March 29, 2025 12:00am Complies with drug therapyStart: 04-22-2024 End: 34-81-6979bcwz 2 puff(s) by inhalation every four hours for wheezing albuterol HFA (Ventolin HFA) 90 mcg/act inhaler Indications: Wheezing Inhale 2 puffs every 4 (four)hours if needed for wheezing 18 g 11 01/13/2025 01/13/2026 ActiveamLODIPine 5 mg oral tablet (20 sources)Dihydropyridine Calcium Channel BlockerStart: 01-13-2025 End: 23-39-3511ckrq 1 tablet by mouth once dailyamLODIPine (Norvasc) 5 MG tablet Indications: Primary hypertension Take 1 tablet (5 mg) by mouth Daily 90 tablet 1 01/13/2025 ActiveStart: 10-22-2023 End: 38-22-0205evng 1 tablet by mouth once dailyamLODIPine (Norvasc) 5 MG tablet Indications: Primary hypertension TAKE 1 TABLET BY MOUTH DAILY 90 tablet 1 07/12/2024 Activeazithromycin 250 mg oral tablet (1 source)Macrolide AntimicrobialStart: 88-91-6222Ihlatjgthncd 250 mg tablet Active 0 PO .COMPLEX 6 0 March 29, 2025 12:00am For 250 mg dose pack: take 500 mg today (day 1), then 250 mg for 4 days (days 2-5) PO Complies with drug therapybenzonatate 200 mg oral capsule (1 source)Non-narcotic AntitussiveStart: 49-03-1119mbto 1 capsule by mouth twice daily as needed for coughBenzonatate 200 mg capsule Active 200 MG PO Twice daily as needed for cough 14 7 0 March 29, 2025 12:00am Complies with drug therapy calcitriol 0.72626 mg oral capsule (20 sources)Vitamin D3 AnalogStart: 78-59-3509sfej 1 capsule by mouth once daily calcitriol (Rocaltrol) 0.25 MCG capsule Indications: Vitamin D deficiency , Alcohol use disorder Take 1 capsule (0.25 mcg) by mouth Daily 90 capsule 2 01/13/2025 ActiveStart: 88-36-9722hpmd 1 capsule by mouth once dailycalcitriol (Rocaltrol) 0.25 MCG capsule Indications: Vitamin D deficiency , Alcohol use disorder Take 1 capsule (0.25 mcg) by mouth Daily 90 capsule 2 10/18/2024 Active Start: 01-22-2024 End: 23-71-6440ohpc 1 capsule by mouth once dailycalcitriol (Rocaltrol) 0.25 MCG capsule Indications: Vitamin D deficiency , Alcohol use disorder Take 1 capsule (0.25 mcg) by mouth Daily 90 capsule 2 01/22/2024 Activeergocalciferol 1.25 mg oral capsule (12 sources)Provitamin D2 CompoundStart: 50-04-5449zuqz 1 capsule by mouth every weekErgocalciferol (Vitamin D2) 1,250 mcg (50,000 unit) capsule Active 1250 MCG PO every week 12 4 February 24, 2025 3:37pm Complies with drug therapyStart: 10-22-2023 End: 04-73-8383Qkdcpze D, Ergocalciferol, 07542 units capsule Indications: Vitamin D deficiency Take 1 capsule by mouth every 7 (seven) days 12 capsule 1 01/22/2024 04/21/2024 ActiveStart: 08-26-2023 End: 52-72-4153rhrx 1 capsule by mouth once dailyErgocalciferol (Vitamin D2) 1,250 mcg (50,000 unit) capsule Discontinued 1250 MCG PO Daily 90 4 February 24, 2025 10:41am February 24, 2025 3:37pmfurosemide 20 mg oral tablet (20 sources)Loop DiureticStart: 01-13-2025 End: 32-59-8621sdfs 1 tablet by mouth once dailyfurosemide (Lasix) 20 MG tablet Indications: Primary hypertension , Alcoholic cirrhosis of liver without ascites (HCC) Take 1 tablet (20 mg) by mouth Daily 90 tablet 1 01/13/2025 ActiveStart: 10-22-2023 End: 05-02-3027zaxl 1 tablet by mouth once dailyfurosemide (Lasix) 20 MG tablet Indications: Primary hypertension , Alcoholic cirrhosis of liver without ascites (HCC) TAKE 1 TABLET BY MOUTH DAILY 90 tablet 1 07/12/2024 Activemecobalamin 1 mg chewable tablet (2 sources)Start: 92-99-0560qfzz 1 tablet by mouth once dailyMecobalamin (Vitamin B12) 1,000 mcg tablet,chewable Active 1000 MCG PO Daily February 24, 2025 12:00am Complies with drug therapymicroencapsulated potassium chloride 10 meq extended release oral tablet (20 sources)Start: 01-13-2025 End: 67-78-0796mynx 1 tablet by mouth once dailypotassium chloride CR (Klor-Con M10) 10 MEQ ER tablet Indications: Hypokalemia Take 1 tablet (10 mEq) by mouth Daily Do not crush or chew. 90 tablet 1 01/13/2025 ActiveStart: 10-22-2023 End: 17-38-9873efsv 1 tablet by mouth once dailypotassium chloride CR (Klor-Con M10) 10 MEQ ER tablet Indications: Hypokalemia TAKE 1 TABLET BY MOUTH DAILY * DO NOT CRUSH OR CHEW * 90 tablet 1 07/12/2024 ActivepredniSONE 20 mg oral tablet (1 source)Start: 22-32-4690wpdm 1 tablet by mouth twice dailyPrednisone 20 mg tablet Active 20 MG PO Twice daily 14 March 29, 2025 12:00am Complies withdrug therapyspironolactone 50 mg oral tablet (20 sources)Aldosterone AntagonistStart: 71-60-4414vype 1 tablet by mouth once dailyspironolactone (Aldactone) 50 MG tablet Indications: Primary hypertension , Alcoholic cirrhosis of liver without ascites (HCC) Take 1 tablet (50 mg) by mouth Daily 90 tablet 1 01/13/2025 ActiveStart: 10-22-2023 End: 48-49-5184ntoo 1 tablet by mouth once dailyspironolactone (Aldactone) 50 MG tablet Indications: Primary hypertension , Alcoholic cirrhosis of liver without ascites (HCC) TAKE 1 TABLET BY MOUTH DAILY 90 tablet 1 07/12/2024 ActiveStart: 08-26-2023 End: 89-50-9109vtih 1 tablet by mouth once dailySpironolactone 25 mg tablet Active 25 MG PO Daily 90 February 24, 2025 10:42am Complies with drug therapyvitamin b12 0.05 mg oral tablet (20 sources)Vitamin C05Jywoo: 69-26-7715ctlc 1 tablet by mouth once daily cyanocobalamin (Vitamin B-12) 50 MCG tablet Indications: Alcohol use disorder Take 1 tablet (50 mcg) by mouth Daily 90 tablet 2 01/13/2025 ActiveStart: 01-22-2024 End: 51-63-3308ujbh 1 tablet by mouth once dailycyanocobalamin (Vitamin B-12) 50 MCG tablet Indications: Alcohol use disorder Take 1 tablet (50 mcg) by mouth Daily 90 tablet 2 01/22/2024 Active Completed/Discontinued Medications MedicationDrug Class(es)DatesSig (Normalized)Sig (Original)hydroCHLOROthiazide 25 mg / valsartan 320 mg oral tablet (3 sources)Thiazide Diuretic, Angiotensin 2 Receptor BlockerStart: 08-26-2023 End: 23-81-1950cymi 1 tablet by mouth once dailyValsartan-Hydrochlorothiazide 320-25 mg tablet Discontinued 1 TAB PO Daily August 26, 2023 12:00amSept2024 10:25am Problems Active Problems Problem ClassificationProblemDateDocumented DateEpisodic/ChronicAlcohol-related disorders (20 sources)Alcoholic cirrhosis; Translations: [Alcoholic cirrhosis of liver without ascites]Onset: 790691-32-0451KdyqapoGnofvkz obstructive pulmonary disease and bronchiectasis (12 sources)Suspected respiratory disease; Translations: [Chronic obstructive pulmonary disease, unspecified]Onset: 017824-85-9434DhiynejYtpiulnfi hypertension (20 sources)Hypertensive disorder; Translations: [Essential (primary) hypertension]Onset: 469524-85-9100TxdeiazHtdboyg (4 sources)Onychomycosis due to dermatophyte ; Translations: [Tinea unguium] 28-02-2333HenpyvadOrfwkbdzump deficiencies (20 sources)Vitamin D deficiency; Translations: [Vitamin D deficiency, unspecified]Onset: 404808-04-4995XygggeuZqalamwjzaj deficiencies (3 sources)Cobalamin deficiency; Translations: [Deficiency of other specified B group vitamins]49-66-6943VskbznzeDoqef and unspecified benign neoplasm (4 sources)Polyp of colon; Translations: [Polyp of colon]19-03-6711DygkycesNatqe connective tissue disease (8 sources)Pain in toe; Translations: [Pain in right toe(s)]40-52-0996Ujnicrcv Other connective tissue disease (2 sources)Calcific tendinitis of right foot; Translations: [Calcific tendinitis, right ankle and foot]30-38-1849HqagxvkkDfbkp connective tissue disease (2 sources)Peroneal tendinitis of right lower limb; Translations: [Peroneal tendinitis, right leg]41-11-5084ZrodjnqpVsodn connective tissue disease (2 sources)Pain in right foot; Translations: [Pain in right foot]12-15-2024 EpisodicOther inflammatory condition of skin (19 sources)Psoriasis; Translations: [Psoriasis, unspecified]Onset: 06-24-2023 58-72-6692BoycpyzUrszn liver diseases (5 sources)Cirrhosis of liver; Translations: [Unspecified cirrhosis of liver] 24-21-1504NieslcsVsega lower respiratory disease (2 sources)Wheezing; Translations: [Wheezing]58-73-1192XbydxbkvGahfp nervous system disorders (2 sources)Difficulty walking; Translations: [Difficulty in walking, not elsewhere classified]72-27-5121QawshybJwrlp screening for suspected conditions (not mental disorders or infectious disease) (2 sources)Other specified abnormal findings of blood chemistry; Translations: [Elevated liver function tests]31-66-2733JbcmtudtFujwz skin disorders (4 sources)Dystrophia unguium; Translations: [Nail dystrophy]18-02-9627Lewhwpfr Past or Other Problems Problem ClassificationProblemDateDocumented DateEpisodic/ChronicAbdominal hernia (19 sources)Umbilical hernia; Translations: [Umbilical hernia without obstruction or gangrene]Onset: 094992-07-9190XcurddsjPnqvzaiuftgpzh/social admission (19 sources)First encounter by subject; Translations: [Persons encountering health services in other specified circumstances]Onset: EpisodicFluid and electrolyte disorders (20 sources)Hypokalemia; Translations: [Hypokalemia]Onset: EpisodicGastrointestinal hemorrhage (19 sources)Gastrointestinal hemorrhage; Translations: [Hemorrhage of anus and rectum]Onset: 924894-83-8811CcsngxzpQokqw and unspecified benign neoplasm (19 sources)History of adenomatous polyp of colon; Translations: [H/O adenomatous polyp of colon]Onset: 490241-82-4237KcqmodqmWuicu circulatory disease (3 sources)Suspected respiratory disease; Translations: [Other specified symptoms and signs involving the circulatory and respiratory systems]Onset: 425193-49-7264UlxrzcdiVcnzm diseases of veins and lymphatics (19 sources)Venous insufficiency of leg; Translations: [Venous insufficiency (chronic) (peripheral)]Onset: 801190-60-1852QuptrpxmQyytmojv codes; unclassified (13 sources)Alcoholism; Translations: [Alcohol use disorder]Onset: 06-24-2023 29-61-5011UknyqilpNlflbtuz codes; unclassified (20 sources)Tobacco user; Translations: [Tobacco use]Onset: EpisodicResidual codes; unclassified (8 sources)Other specified conditions influencing health status; Translations: [Alcohol use disorder]Onset: 412009-79-8527YwjbgnirVaomlvs and strains (20 sources)Low back strain; Translations: [Strain of muscle, fascia and tendon of lower back, initial encounter]Onset: 039791-14-1659Vfkdueyp Results Test NameValueInterpretationReference RangeFacilityBasophils Auto (Bld) [#/Vol] Ordered By: Denisha Mata on 03-05-7260Btlqfncya (Bld) [#/Vol]0.0 10 3/uL0.0-0.1 [facility] HospitalBasophils/100 WBC Auto (Bld)Ordered By: Denisha Mata on 45-37-5824Hmfvsgvho/100 WBC (Bld)0.3 %0.2-2.0[facility] HospitalCholesterol in LDL Calc [Mass/Vol]Ordered By: Denisha Mata on 02-25-2025 Cholesterol in LDL [Mass/Vol]91.6 mg/dLTuscarawas HospitalComment on above:<100 mg/dl CVPJXWQ374-144 mg/dl NEAR OR ABOVE JEHIEPY553-747 mg/dl BORDERLINE AQWG992-609 mg/dl HIGH>190 mg/dl VERY HIGHCholesterol in VLDL Calc [Mass/Vol]Ordered By: Denisha Mata on 59-42-6868Jerereksdjq in VLDL [Mass/Vol] 15.4 mg/dLFirelands Regional Medical CenterEosinophils/100 WBC Auto (Bld)Ordered By: Denisha Mata on 56-72-7204Yosioxljmqa/100 WBC (Bld)0.5 %Low0.9-7.0[facility] HospitalErythrocyte distribution width Auto (RBC) [Ratio]Ordered By: Denisha Mata on 20-25-5101Lasdupmcrkx distribution width (RBC) [Ratio]13.6 %11.0-15.0[facility] HospitalGlobulin Calc (S) [Mass/Vol]Ordered By: DENISHA MATA on 74-45-6067Xvkpctrn (S) [Mass/Vol]5.3 g/dLTuscarawas HospitalGlomerular filtration rate (GFR) estimation in non- AmericanOrdered By: DENISHA MATA on 15-71-6960LEU/1.73 sq M.predicted among non- blacks MDRD (S/P/Bld) [Vol rate/Area]mL/min/{1.73_m2}>=60 mL/min/1.73m 2 [facility] HospitalHematocrit Auto (Bld) [Volume fraction]Ordered By: Denisha Mata on 60-07-3018Cnykusfjrq (Bld) [Volume fraction]46.4 %42.0-54.0 [facility] HospitalHemoglobin [Mass/volume] in BloodOrdered By: Denisha Mata on 37-85-9107Cmzmngwuzw (Bld) [Mass/Vol]15.4 g/dL14.0-18.0[facility] HospitalLaboratory - Chemistry and Chemistry - challengeOrdered By: DENISHA MATA on 13-55-7279Achkuch [Mass/Vol]2.6 g/dLLow3.4-5.0[facility] HospitalALP [Catalytic activity/Vol]326 U/ZCtnj92-600JrccotpsoTuscarawas HospitalALT [Catalytic activity/Vol]75 U/GVpds32-39PqtkptcieTuscarawas HospitalAST [Catalytic activity/Vol]78 U/WVuvw32-85GoltjlbqwTuscarawas HospitalBilirubin [Mass/Vol]2.3 mg/dLHigh0.2-1.0[facility] HospitalCalcium [Mass/Vol]9.2 mg/dL8.5-10.1FNorwalk Memorial HospitalChloride [Moles/Vol]99 mmol/V07-086ClsaizhukTuscarawas HospitalCO2 [Moles/Vol]32.4 mmol/LHigh21.0-32.0[facility] Cobalamin (Vitamin B12) [Mass/Vol]859 pg/bZ422-9716PcimglorpTuscarawas HospitalComment on above:Performed at: - [facility] [id number] Director: Johnathon Rosenbaum PhD, Phone: [phone] Creatinine [Mass/Vol]1.09 mg/dL0.70-1.30[facility] GFR/1.73 sq M.predicted MDRD (S/P/Bld) [Vol rate/Area]mL/min/{1.73_m2}>=60 mL/min/1.73m 2FNorwalk Memorial HospitalGlucose [Mass/Vol]104 mg/sR27-855 [facility] HospitalPotassium [Moles/Vol]4.3 mmol/L3.5-5.1FNorwalk Memorial HospitalProtein [Mass/Vol]7.9 g/dL6.4-8.2FGlenbeigh Hospitalodium [Moles/Vol]135 mmol/UPsd118-787MxvcivvxvTuscarawas HospitalUrea nitrogen [Mass/Vol]10.0 mg/dL7.0-18.0[facility] HospitalUrea nitrogen/Creatinine [Mass ratio]9.2 mg/mgTuscarawas HospitalLaboratory - Chemistry and Chemistry - challengeOrdered By: Denisha Mata on 32-65-2163Wwgslmwvxqy [Mass/Vol]160 mg/dL<=200T[facility] HospitalCholesterol in HDL [Mass/Vol]53 mg/eU42-51LxbhylomtTuscarawas HospitalComment on above:> or =60 mg/dl - LOW CARDIOVASCULAR RISK<40 mg/dl - HIGH CARDIOVASCULAR RISKTriglyceride [Mass/Vol]77 mg/dL<=150T[facility] HospitalLaboratory - Hematology and Cell countsOrdered By: Denisha Mata on 79-59-6119Axklwwzd granulocytes/100 WBC (Bld)0.3 %0.0-0.5FNorwalk Memorial HospitalLeukocytes [#/volume] corrected for nucleated erythrocytes in Blood by Automated counOrdered By: Denisha Mata on 55-18-1212NFZ corrected for nucl RBC Auto (Bld) [#/Vol]7.5 10 3/uL4.0-11.0[facility] Lymphocytes Auto (Bld) [#/Vol]Ordered By: Denisha Mata on 42-22-1842Jtayhecwlst (Bld) [#/Vol]1.0 10 3/uLLow1.2-3.8[facility] Lymphocytes/100 WBC Auto (Bld)Ordered By: Denisha Mata on 02-25-2025 Lymphocytes/100 WBC (Bld)13.3 %Low20.5-60.0[facility] CenterH Auto (RBC) [Entitic mass]Ordered By: Denisha Mata on 12-65-6258QTR (RBC) [Entitic mass]31.1 pg25.9-34.0[facility] HospitalMCHC Auto (RBC) [Mass/Vol]Ordered By: Denisha Mata on 23-56-7799EBUS (RBC) [Mass/Vol]33.2 g/dL 29.9-35.2FNorwalk Memorial HospitalMCV Auto (RBC) [Entitic vol]Ordered By: Denisha Mata on 41-21-1468BCP (RBC) [Entitic vol]93.7 fL80.0-94.0[facility] HospitalMonocytes Auto (Bld) [#/Vol]Ordered By: Denisha Mata on 92-36-6561Ngcjotitr (Bld) [#/Vol]0.9 10 3/uLHigh0.3-0.8[facility] HospitalMonocytes/100 WBC Auto (Bld)Ordered By: Denisha Mata on 02-25-2025 Monocytes/100 WBC (Bld)11.7 %1.7-12.0[facility] Neutrophils Auto (Bld) [#/Vol]Ordered By: Denisha Mata on 62-35-4216Rjmdqlhlqyd (Bld) [#/Vol]5.6 10 3/uL1.4-6.5FNorwalk Memorial HospitalNeutrophils/100 WBC Auto (Bld)Ordered By: Denisha Mata on 03-57-2867Xxeppowaajr/100 WBC (Bld) 73.9 %43.0-75.0[facility] HospitalNo Panel InformationOrdered By: Denisha Mata on 63-62-572680846128-Blgtmav Vitamin D Total51.0 ng/mLTuscarawas HospitalComment on above:<20 ng/mL Vit D dxpnhrall38-<30 ng/mL Vit D kedrbdocwoex07-610 ng/mL Vit D sufficient>100 ng/mL Potential Toxicity Eosinophils # (Auto)0.0 10 3/uL0.0-0.7FNorwalk Memorial HospitalImmature Granulocyte # (Auto)0.02 10 3/uL0.00-0.03[facility] Platelet mean volume Auto (Bld) [Entitic vol]Ordered By: Denisha Mata on 26-61-3572Vdvditcy mean volume (Bld) [Entitic vol]11.2 fL9.5-13.5FNorwalk Memorial HospitalPlatelets Auto (Bld) [#/Vol]Ordered By: Denisha Mata on 78-43-8609Zauwusdqn (Bld) [#/Vol]273 10 3/aH022-797MmluhjoenTuscarawas HospitalRBC Auto (Bld) [#/Vol]Ordered By: Denisha Mata on 73-95-6075DXZ (Bld) [#/Vol]4.95 10 6/uL4.70-6.10[facility] Medical Centererum or plasma albumin/globulin mass ratioOrdered By: DENISHA MATA on 02-25-2025 Albumin/Globulin [Mass ratio]0.5 {ratio}[facility] Medical Centererum or plasma anion gap determinationOrdered By: DENISHA MATA on 95-83-2146Gssge gap [Moles/Vol]7.9 mmol/LFGlenbeigh Hospitalerum or plasma total cholesterol/high density lipoprotein (HDL) cholesterol mass ratOrdered By: Denisha Mata on 79-16-0419Vezgadaubrn.total/Cholesterol in HDL [Mass ratio]3.0 {ratio}[facility] HospitalComment on above:3.3 - 4.4 LOW RISK4.4 - 7.1 AVERAGE RISK7.1 - 11.0 MODERATE RISK>11.0 HIGH RISKXR Foot - right 3 Viewson 12-00-0076Hibxzgl Result: 3 views right foot: Weight-bearing: DP, oblique, lateral: 12/15/2024: Unremarkable for acute osseous or joint pathology. No distinct fractures or stress fractures are identified. Calcific deposition or along the styloid process at the insertion of the peroneus brevis tendon. Hindfoot cavus is appreciated. Arthritic changes through the midfoot appreciated.[facility]eeRadiology Study observation (narrative)[facility] 63-63-0674OIzybghyc: [id number] Received: 08/26/23 Status: JEFF Villasenor Num: [id number] Spec Type: Surgical Subm Dr: Ena Whaley MD Tissues: A Colon Biopsy (TRANSV POLYP) B Colon Biopsy (DESC POLYP) C Colon Biopsy (SIGMOID POLYP) Procedures: HE/6, Gross/Micro L4/3 Age/ Patient Sex Location Account Attending Physician Rhoda Tapia 73/M [id number] Ena Whaley MD SPEC NUM: [id number] RECD: 08/26/23 STATUS: JEFF VILLASENOR NUM: [id number] ASIA: 08/26/23- SUBM DR: Ena Whaley MD ENTERED: 08/26/23 [facility] DR: SPEC TYPE: Surgical DEPT: [...] submitted in one cassette labeled B1. Specimen: [id number] Received: 08/26/23 Status: JEFF Villasenor Num: [id number] Spec Type: Surgical Subm Dr: Ena Whaley MD Tissues: A Colon Biopsy (TRANSV POLYP) B Colon Biopsy (DESC POLYP) C Colon Biopsy (SIGMOID POLYP) Procedures: SABA/Marisol Marinelli/Carol L4/3 Patient: Rhoda Tapia [id number] (Continued) Specimen: [id number] Received: 08/26/23 (Continued) Gross Description (Continued) Signed (signature on file) Evans aHrt MD 08/27/231802 Specimen: [id number] Received: 08/26/23 Status: JEFF Villasenor Num: [id number] Spec Type: Surgical Subm Dr: Ena Whaley MD Tissues: A Colon Biopsy (TRANSV POLYP) B Colon Biopsy (DESC POLYP) C Colon Biopsy (SIGMOID POLYP) Procedures: HE/6, Gross/Micro L4/3 Patient: Rhoda Tapia [id number] (Continued) Specimen: [id number] Received: 08/26/23 (Continued) Gross Description (Continued) C. Received in formalin labeled with the patient's name, date of and sigmoid polyps (three) are three looney tissues ranging from 0.3 x 0.3 x 0.1 cm to 0.4 x 0.3 x 0.1 cm. Entirely submitted in one cassette labeled C1. CPT Codes 81598t7 Specimen: [id number] Received: 08/26/23 Status: JEFF Villasenor Num: [id number] Spec Type: Surgical Subm Dr: Ena Whaley MD Tissues: A Colon Biopsy (TRANSV POLYP) B Colon Biopsy (DESC POLYP) C Colon Biopsy (SIGMOID POLYP) Procedures: HE/6, Gross/Micro L4/3 Patient: Rhoda Tpaia [id number] (Continued) Signed (signature on file) Evans Hart MD 08/27/23 [facility] RIGHT UPPER QUADRANTon 07-01-[address] [address] Ultrasound Report Signed Patient: RHODA TAPIA MR#: [id number] : 1950 Acct:[id number] Age/Sex: 73 / M ADM Date: 07/01/23 Loc: US Attending Dr: Shaikh Silas [place] Ordering Physician: Shaikh Hood Rosen Date of Service: 07/01/23 Procedure(s): US right upper quadrant Accession Number(s): [id number] cc: Shaikh Hood Rosen [place] [id number] Patient Name: RHODA TAPIA MRN: [id number] date: 1950 Sex: M Assigned Patient Location: [place] Current Patient Location: [place] Accession/Order Number: [id number] Exam Date: 07/01/2023 07:50 Report Date: 07/01/2023 [...] M.D. Signed By: 07/01/23904 DD/ 1 TD/TT: Flag Football Coach:FIDELINAadiology, Radiologist, - 07/01/2023 [facility] [place] [id number] Ultrasound Report Signed Patient: RHODA TAPIA MR#: [id number] : 1950 Acct:[id number] Age/Sex: 73 / M ADM Date: 07/01/23 Loc: US Attending Dr: Shaikh Silas [place] Ordering Physician: Shaikh Hood Rosen Date of Service: 07/01/23 Procedure(s): US right upper quadrant Accession Number(s): [id number] cc: Shaikh Hood Rosen [facility] [place] [id number] Patient Name: RHODA TAPIA MRN: [id number] date: 1950 Sex: M Assigned Patient Location: [place] Current Patient Location: [place] Accession/Order Number: [id number] Exam Date: 07/01/2023 07:50 Report Date: 07/01/2023 [...] M.D. Signed By: 07/01/23904 DD/ 1 TD/TT: Flag Football Coach: ANTHONY HealthcareRadiology Study observation (narrative)[facility] HealthcareUS RIGHT UPPER QUADRANTOrdered By: Radiologist Radiology on 89-48-4321H[employer]formerly [employer]) Work Phone: Vital Signs Date TimeVital SignValuePerforming SgzdmpvhjEwhllnpt09-60-9956 13:08-0500Body rqbspa098.5 cmSteven Rusher DPM Work Phone: [phone] [place], [place] 0464411-04-2025 13:08-0500Body mass index (BMI) [Ratio]36.75 kg/p9Mkvwpa Rusher DPM Work Phone: [phone]11-04-2025 13:08-0500Body jokqoq178.36 kgSteven Rusher DPM Work Phone: [phone]10-28-2025 13:57-0400Body grgiwi788.96 cmJessica Dorian DO Work Phone: [facility]10-28-2025 13:57-0400 Body mass index (BMI) [Ratio]36.1 kg/h4Ayldlgg Dorian DO Work Phone: [phone]-[facility]10-28-2025 13:57-0400 Body qzrpfa868.91 kgJessica Dorian DO Work Phone: [phone]10-28-2025 13:57-0400 Diastolic blood eqldcxet62 mm[Hg]Denisha Dorian DO Work Phone: [phone]-[facility]10-28-2025 13:57-0400 Heart rate97 /minJessica Dorian DO Work Phone: [phone] [place], [place] 6253210-28-2025 13:57-0400 Respiratory rate20 /minJessica Dorian DO Work Phone: [phone] [place], [place] 6253210-28-2025 13:57-0400 SaO2% (BldA) [Mass fraction]97 %Denisha Dorian DO Work Phone: [phone] [place], [place] 6253210-28-2025 13:57-0400 Systolic blood pijvejqu694 mm[Hg]Denisha Dorian DO Work Phone: [phone] [place], [place] 6253209-25-2025 09:58-0400 Body sofayj807.96 cmJessica Dorian DO Work Phone: [phone] [place], [place] 6253209-25-2025 09:58-0400 Body mass index (BMI) [Ratio]36.3 kg/s0Ufbbtds Dorian DO Work Phone: [phone] [place], [place] 6253209-25-2025 09:58-0400 Body jusgzo410.36 kgJessica Dorian DO Work Phone: [phone] [place], [place] 6253209-25-2025 09:58-0400 Diastolic blood ikuesykv15 mm[Hg]Denisha Dorian DO Work Phone: [phone] [place], [place] 6253209-25-2025 09:58-0400 Heart rate74 /minJessica Dorian DO Work Phone: [phone] [place], [place] 6253209-25-2025 09:58-0400 Respiratory rate20 /minJessica Dorian DO Work Phone: [phone] [place], [place] 6253209-25-2025 09:58-0400 SaO2% (BldA) [Mass fraction]96 %Denisha Dorian DO Work Phone: [phone] [place], [place] 6253209-25-2025 09:58-0400 Systolic blood meyntzra987 mm[Hg]Denisha Dorian DO Work Phone: [facility] [facility] 12:54-0400 Body xyoisd299.5 cmSteven Rusher DPM Work Phone: [phone]07-16-2025 12:54-0400Body mass index (BMI) [Ratio]36.75 kg/j4Bvkeqt Rusher DPM Work Phone: [phone])[address]07-16-2025 12:54-0400Body vnlbyg282.36 kgSteven Rusher DPM Work Phone: [phone])76[address]07-03-2025 13:19-0400Body .5 cmSteven Rusher DPM Work Phone: [phone] [place], [place] 0464407-03-2025 13:19-0400Body mass index (BMI) [Ratio]36.75 kg/z5Ekekfs Rusher DPM Work Phone: [phone])[address]07-03-2025 13:19-0400Body kuvrqf917.36 kgSteven Rusher DPM Work Phone: [phone])21304 [address]01-29-2025 14:16-0500Body pbohlr718.5 cmSteven Rusher DPM Work Phone: [phone]01-29-2025 14:16-0500Body mass index (BMI) [Ratio]36.77 kg/f7Zfukql Rusher DPM Work Phone: [phone]01-29-2025 14:16-0500Body uzqmkk427.45 kgSteven Rusher DPM Work Phone: [phone]11-21-2024 13:27-0500Body xckquj763.5 cmBrittany Cam OPTICAL INSTRUMENT ASSEMBLY SUPERVISOR Work Phone: [facility] HospitalRulbsxjpsc87-66-8386 13:27-0500Body mass index (BMI) [Ratio]36.77 kg/s1Sejizeip Cam OPTICAL INSTRUMENT ASSEMBLY SUPERVISOR Work Phone: [facility] HospitalHvkepftmqx02-44-2862 13:27-0500Body temperature 96.21 [degF]Ale Cam OPTICAL INSTRUMENT ASSEMBLY SUPERVISOR Work Phone: [facility] HospitalYxiglgxynb16-82-3671 13:27-0500Body .45 kgAle Cam OPTICAL INSTRUMENT ASSEMBLY SUPERVISOR Work Phone: [facility] HospitalFnucravksx06-71-0105 13:27-0500Diastolic blood mm[Hg]Ale Acevespatrick OPTICAL INSTRUMENT ASSEMBLY SUPERVISOR Work Phone: [facility] HospitalNuqwyejbqf75-43-4796 13:27-0500Heart rate86 /min Ale Cam OPTICAL INSTRUMENT ASSEMBLY SUPERVISOR Work Phone: [facility] HospitalYxxryfonoj85-59-9417 13:27-0500Respiratory rate16 /minBrcyn Cam OPTICAL INSTRUMENT ASSEMBLY SUPERVISOR Work Phone: [facility] HospitalAerrerwkyb11-32-6217 13:27-7556DpD5% (BldA) [Mass fraction]95 %Ale Cam OPTICAL INSTRUMENT ASSEMBLY SUPERVISOR Work Phone: [facility] HospitalVmylhcpvfk58-30-4334 13:27-0500Systolic blood ydksxlnd623 mm[Hg]Ale Acevespatrick OPTICAL INSTRUMENT ASSEMBLY SUPERVISOR Work Phone: [facility] HospitalYtdhlbwxma94-64-4316 14:10-0400Body tezojb077.5 cmSteven Rusher DPM Work Phone: [facility] [place] [facility] HospitalQrebgioprj91-47-9553 14:10-0400Body mass index (BMI) [Ratio]36.5 kg/r1Aavqlo Rusher DPM Work Phone: [phone] [place] [facility] HospitalAnewifrudt70-00-0394 14:10-0400Body jyxsip844.45 kgSteven Rusher DPM Work Phone: [facility] HospitalTaotvwucph41-64-8589 13:14-0400Body qaalzu422.5 cmBrittany Cam OPTICAL INSTRUMENT ASSEMBLY SUPERVISOR Work Phone: [facility] HospitalJufpnglrgy21-73-9397 13:14-0400Body mass index (BMI) [Ratio]36.5 kg/p0Xgwiizsx Cam OPTICAL INSTRUMENT ASSEMBLY SUPERVISOR Work Phone: [facility] HospitalQnkqyfeeng06-37-7562 13:14-0400Body temperature 97.7 [degF]Ale Calitrick OPTICAL INSTRUMENT ASSEMBLY SUPERVISOR Work Phone: [facility] [place] [facility] HospitalWnvvkmvlrb49-06-6034 13:14-0400Body smqazd095.45 kgAle Calitrick OPTICAL INSTRUMENT ASSEMBLY SUPERVISOR Work Phone: [facility] [place] [facility] HospitalIypbvrfllv74-45-4908 13:14-0400Diastolic blood azshcccm71 mm[Hg]Ale Acevespatrick OPTICAL INSTRUMENT ASSEMBLY SUPERVISOR Work Phone: [facility] [place] [facility] HospitalKfbsloqyrl23-85-6132 13:14-0400Heart rate59 /min Ale Acevespatrick OPTICAL INSTRUMENT ASSEMBLY SUPERVISOR Work Phone: [facility] HealthcareComment on above:97% Z055-52-7143 13:14-0400Systolic blood altrcxzd597 mm[Hg]Ale Acevespatrick OPTICAL INSTRUMENT ASSEMBLY SUPERVISOR Work Phone: [facility] [place] [facility] HospitalHydvroudbm02-76-1392 11:12-0400Diastolic blood mm[Hg]MD Sutherland Asaad Work Phone: [phone]03-26-2024 11:12-0400 Heart rate67 /minMD Imad Asaad Work Phone: [phone]03-26-2024 11:12-0400 Respiratory rate18 /minMD Imad Asaad Work Phone: [phone] [place], [place] 2123103-26-2024 11:12-0400 SaO2% (BldA) [Mass fraction]98 %MD Sutherland Asaad Work Phone: [phone]03-26-2024 11:12-0400 Systolic blood mhrrxivs102 mm[Hg]MD Sutherland Asaad Work Phone: [phone]03-26-2024 08:35-0400 Body cxrojz926.5 cmMD Imad Asaad Work Phone: [phone] [place], [place] 2123103-26-2024 08:35-0400 Body .8 kgMD Imad Asaad Work Phone: [facility] Encounters Encounter DateEncounter TypeCare ProviderFacilityStart: 04-05-2025 End: 96-82-4827Bafcar flowsheetSteven A Rusher DPM Work Phone: [facility]ert PodiatryStart: 04-05-2025 End: 47-63-5279Vximwh flowsheetSteven A Rusher DPM Work Phone: [facility]ert PodiatryStart: 04-05-2025 End: 38-08-8752Usgjpct encounter procedureSteven A Rusher DPM Work Phone: noms Nash PodiatryComment on above:Dermatophytosis of nail (Primary Dx); Dystrophic nail; Pain around toenail, right foot; Pain around toenail, left footStart: 04-05-2025 End: 21-29-1675qyemqyklkuEVYHFT A RUSHERNot AvailableStart: 03-29-2025 End: 35-08-6560squxfvauzjFihqzph Dorian DO Work Phone: -[facility] ClydeStart: 03-29-2025 End: 16-63-2641Kascxnc encounter procedureJessica Dorian DO-[facility] [place] Work Phone: Start: 91-36-8975Vwn-patient / Non-visitJessica Dorian DO-[facility] Work Phone: Start: 02-24-2025 End: 67-36-9297yjnkjiwucaRjeyxnn Dorian DO Work Phone: [facility] Work Phone: Start: 02-24-2025 End: 00-39-4424Wmmiabl encounter procedureJessica Dorian DO-[facility] [place] Work Phone: Start: 12-15-2024 End: 89-57-2958Erfctt flowsheetSteven A Rusher DPM Work Phone: noms PODIATRYStart: 12-15-2024 End: 03-46-5270Nejpqn flowsheetSteven A Rusher DPM Work Phone: noms PODIATRYStart: 12-15-2024 End: 89-80-3869Jaglkt outpatient visit 25 minutesSteven A Rusher DPM Work Phone: noms PODIATRYComment on above:Calcific tendonitis of foot, right (Primary Dx); Peroneal tendonitis, right; Pain in right foot; Difficulty walkingStart: 12-15-2024 End: 32-02-8603hclaszjtyaQJQCYY A RUSHERNot AvailableStart: 12-02-2024 End: 47-94-5752Ktaqwx flowsheetSteven A Rusher DPM Work Phone: NOCT PODIATRYStart: 12-02-2024 End: 46-53-8404Esdjau flowsheetSteven A Rusher DPM Work Phone: noms PODIATRYStart: 12-02-2024 End: 33-67-8960Mfxtnbf encounter procedureSteven A Rusher DPM Work Phone: noms PODIATRYComment on above:Dermatophytosis of nail (Primary Dx); Dystrophic nail; Pain around toenail, right foot; Pain around toenail, left footStart: 12-02-2024 End: 03-09-2468wyizztxdxsZBKMWA A RUSHERNot AvailableStart: 07-09-2024 End: 88-73-6974GdlbvpSnjdcwsk Fitzpatrick OPTICAL INSTRUMENT ASSEMBLY SUPERVISOR Work Phone: noms CWM FMComment on above:Primary hypertension (CMS/HCC); Alcoholic cirrhosis of liver without ascites (CMS/HCC); HypokalemiaStart: 06-30-2024 End: 05-31-7816Pzritpq encounter procedureSteven A Rusher DPM Work Phone: noms PODIATRYComment on above:Dermatophytosis of nail (Primary Dx); Dystrophic nail; Pain around toenail, right foot; Pain around toenail, left footStart: 06-30-2024 End: 34-45-5657vzttwbysitOBEKDG A RUSHERNot AvailableStart: 06-30-2024 End: 35-94-8861Tbsmgn flowsheetSteven A Rusher DPM Work Phone: noms PODIATRYStart: 06-30-2024 End: 71-10-3090Etikop flowsheetSteven A Rusher DPM Work Phone: noms PODIATRYStart: 04-22-2024 End: 00-00-0794Bkkxis flowsheetAle Wintersk OPTICAL INSTRUMENT ASSEMBLY SUPERVISOR Work Phone: noms CWM FMStart: 04-22-2024 End: 49-18-2757Lcbwas flowsheetAle Wintersk OPTICAL INSTRUMENT ASSEMBLY SUPERVISOR Work Phone: noms CW FMStart: 04-22-2024 End: 11-64-3129Jyznwg outpatient visit 15 minutesBrcyn Cam OPTICAL INSTRUMENT ASSEMBLY SUPERVISOR Work Phone: noms CW FMComment on above:Alcoholic cirrhosis of liver without ascites (CMS/HCC) (Primary Dx); Primary hypertension (CMS/HCC); Wheezing; Suspected chronic obstructive pulmonary disease based on initial evaluation (CMS/HCC)Start: 04-22-2024 End: 91-87-1938hittrwpuomGTDPTDNJ FITZPATRICKNot AvailableStart: 03-03-2024 End: 85-02-2568Kilbcow encounter procedureSteven A Rusher DPM Work Phone: noms PODIATRYComment on above:Dermatophytosis of nail (Primary Dx); Dystrophic nail; Pain around toenail, right foot; Pain around toenail, left footStart: 03-03-2024 End: 30-55-6147Pgregn flowsheetSteven A Rusher DPM Work Phone: noms PODIATRYStart: 03-03-2024 End: 01-52-9219Xdbbtn flowsheetSteven A Rusher DPM Work Phone: noms PODIATRYStart: 01-22-2024 End: 33-09-7752Iheaqb flowsheetAle Tinocozpatrick OPTICAL INSTRUMENT ASSEMBLY SUPERVISOR Work Phone: noms CWM FMStart: 01-22-2024 End: 53-93-9371Nqgyaj flowsheetAle Tinocozpatrick OPTICAL INSTRUMENT ASSEMBLY SUPERVISOR Work Phone: noms CWM FMStart: 01-22-2024 End: 52-20-2792Mblpxg outpatient visit 25 minutesBrcyn Cam OPTICAL INSTRUMENT ASSEMBLY SUPERVISOR Work Phone: noms CWM FMComment on above:Primary hypertension (CMS/HCC) (Primary Dx); Vitamin D deficiency; Alcohol use disorder; Hypokalemia; Alcoholic cirrhosis of liver without ascites (CMS/HCC); Strain of lumbar region, initial encounterStart: 08-26-2023 End: 96-87-7491jdlpweyjolBBG STAFFFacility:[facility] Start: 03-49-8980Gge-patient / Non-visitMD Imad Asaad Work Phone: [facility] Gastroenterology Work Phone: Start: 08-26-2023 End: 52-26-9493Fhfqxcqfp to same day surgery centerMD Imad Asaad Work Phone: [facility] Work Phone: Start: 08-26-2023 End: 77-23-6530jxatxgryfpTDN [facility] Work Phone: Start: 34-50-5348Npi-patient / Non-visitMD Imad Asaad Work Phone: [facility] Work Phone: Start: 04-45-5693Zpd-patient / Non-visitMD Imad Asaad Work Phone: [facility] Gastroenterology Work Phone: start: 07-01-2023 End: 67-95-5440Xophyogod Result EncounterSdenis Rosen MD Work Phone: NOXS External Department UnsolicitedStart: 07-01-2023 End: 55-78-6298Ufknzpeom Result EncounterSdenis Rosen MD Work Phone: noms External Department Unsolicited Procedures DateProcedureProcedure DetailPerforming ClinicianStart: 22-38-0137Kfxam foot complete minimum 3 viewsStgeno Roman DPM Work Phone: Start: 76-00-0927YejqkdfhhxvUqfwxuqy Cam OPTICAL INSTRUMENT ASSEMBLY SUPERVISOR Work Phone: Start: 31-75-5768KsvuokyjkfjAU Imad Asaad Work Phone: Start: 67-84-3779UA RIGHT UPPER QUADRANTSdenis Rosen MD Work Phone: Plan of Treatment DateCare ActivityDetailAuthorStart: 07-52-1514Gypvpwfat for malignant neoplasm of colonNOMS HealthcareStart: 07-20-2025 End: 02-95-7727Xyvlmmd encounter rbczkvxdi68/18/2026 1:00 PM EST Procedure Visit [facility] [address] [place] [address] Chapin Roman DPRiver [address] [place], [place] [address] [facility] PodiatryStart: 04-05-2025 End: 33-56-0956Drllaej encounter procedureNOMS PODIATRYComment on above: ArrivedStart: 37-29-2401Ufpxrfoob vaccinationInfluenza Vaccine (#1)NOM HealthcareStart: 12-15-2024 End: 01-79-6553Eqeqyln encounter oiokmszdl66/16/2025 1:00 PM EDT Office Visit [facility] [address] [place] [address] Chapin Roman, MARIA ESTHER [address] [place], [place] [address] ArrivedNOMS PODIATRYComment on above:ArrivedStart: 12-02-2024 End: 05-04-3871Rbvyyrl encounter xtwivxfgl31/03/2025 1:30 PM EDT Procedure Visit [facility] [address] [facility] [address] Chapin Roman DP [address] [place] [address] ArrivedNOMS PODIATRYComment on above:ArrivedStart: 11-01-2024 End: 20-43-4360Ybaetki encounter ixsjftqek94/02/2025 1:00 PM EDT Office Visit [facility] [address] [place] [address] Chapin Roman [facility] [address] [place] [address] NOMS PODIATRYStart: 07-19-2024 End: 22-80-5783Eqguwmy encounter rudpmhpfy29/17/2025 2:30 PM EST Office Visit [facility] [address] [place] [address] Ale Cam, OPTICAL INSTRUMENT ASSEMBLY SUPERVISOR [address] [place] [address] [facility]OMS CWM FMStart: 06-30-2024 End: 23-07-2272Fdsnurx encounter procedureNOMS PODIATRYComment on above: ArrivedStart: 04-22-2024 End: 78-26-8375Osyhdse encounter procedureNOMS CWM FMComment on above:Arrived Start: 03-03-2024 End: 30-66-5875Fwvcfhr encounter procedureNOMS PODIATRYComment on above: ArrivedStart: 56-30-7502Uvccvqlcw vaccinationInfluenza Vaccine (#1)[facility] HealthcareStart: 03-92-3972AwrckmspaUniversity Hospitals St. John Medical Centertart: 1969 Pneumococcal Vaccine: 65+ Years (1 of 2 - PCV)Pneumococcal Vaccine: 65+ Years (1 of 2 - PCV)[facility] HealthcareStart: 31-61-4874Tdobewanrmjo Vaccine: 65+ Years (1 of 2 - PCV)Pneumococcal Vaccine: 65+ Years (1 of 2 - PCV)[facility] HealthcareStart: 1950Medicare Annual Wellness (AWV)Medicare Annual Wellness (AWV)[facility] HealthcareStart: 59-72-7584Kmxdyukuf for malignant neoplasm of colonNOSD HealthcareStart: 14-02-5658Ndrkuxdtl for malignant neoplasm of lungLung Cancer Screening Shared Decision MakingNorth Kansas City HospitalComprehensive metabolic 2000 panel - Serum or PlasmaTuscarawas HospitalPatient EducationColon polyps Hemorrhoids (DC) Diverticulosis (DC)[facility] Work Phone: [facility] Immunizations Immunization DateImmunizationNotesCare TmipsfuyZvgdiisk38-25-2218usgldzdai, seasonal, injectable, preservative freeSteven Rusher DPM Work Phone: [facility] [place] [facility] HospitalOmseqtjhhd99-49-1471tomzlsadn virus vaccine, unspecified formulationSteven Rusher DPM Work Phone: [facility] Payers DatePayer CategoryPayerPolicy [id number] Health InsuranceL[facility] [place] [id number] [employer] [facility] [employer] [id number] 2021- Present [address] [address] [place] [address] [id number] [id number] [id number] 2..840.1.556974.3.57[id number] 2.840.1.057525.3.57[id number] 2..840.1.360622.3.57[id number] 2..840.1.636492.3.57[id number] 2.0.1.163414.3.57[id number] 2.840.1.40[id number] 2.840.1.230209.3.579.2.531 Social History DateTypeDetailFacilityStart: 95-62-4897Jkdnojs smoking status NHISSmoker (finding)[facility] Medical Centertart: 68-99-2700Rtv Assigned At [facility] Westtart: 06-24-2023 End: 45-38-4638Bbqbcsr smoking status NHISSmokes tobacco dailyNOSD Healthcare History of tobacco useCigarette SmokerNOSD HealthcareStart: 11-18-2023 End: 91-26-9279Jrxbuoeomi smoked current (pack per day) - Reported0.5NOSD HealthcareHistory of tobacco usePassive smokerNOMS HealthcareStart: 06-24-2023 End: 18-99-7599Vzjkogp use and exposureSmokeless tobacco non-userNOSD Healthcare Start: 01-22-2024 End: 81-36-9369Yhicihlsf beverage intakeCurrent drinker of alcohol (finding)[facility] HealthcareStart: 01-22-2024 End: 12-96-7460Lqrluns use panelNOSD HealthcareStart: 97-36-7217Ibobrhl Comment dailyNOSD HealthcareStart: 51-59-7981Rnw assigned at birthNot on fileNOSD HealthcareSexMale (finding)[facility] Medical Centertart: 15-21-6906Wvj MaleCENTRAL VALLEY [facility]ICAL [facility]ENTER Healthcare Goals DatePatient GoalDesired Activity/State Functional Status GdhwFxkpfbmysrJtmzmbRxohcptp62-43-6722Apvyshj Health Questionnaire 2 item (PHQ- 2) [Reported][facility] Clinical Notes 08-26-2023 to 04-05-2025 Note Date & YlzpFkxjYimrgtca98-08-0833 History of Present illness Narrative* Chapin Roman, [...] and oriented. Pleasant disposition. Independently ambulatory. Wearing interior horticulturist footwear. Vascular: DP 1/4 bilateral. PT faintly [...] understanding. Chapin Roman DPM documented in this encounterNorth Kansas City HospitalOrktrnniqf26-21-1139 Evaluation note* Diagnosis Onset Date Resolution Status Admit Date B12 deficiency acuteSept2024 9:54amCirrhosis of liveracuteSept2024 9:54amColon polypsacuteSept2024 9:54amHTN (hypertension)acute February 24, 2025 9:54amHypokalemiaacuteSept2024 9:54amTobacco abuseacuteSept2024 9:54amVitamin D deficiencyacuteSept2024 9:54amCirrhosis of liveracuteOct2024 1:55pmElevated LFTsacute March 29, 2025 1:55pm [facility] Work Phone: [phone] History of Present illness Narrative* Chapin Roman, [...] understanding. Chapin Roman DPM documented in this [facility]07-16-2025 Instructions* Patient Instructions* Chapin Roman DPM - 12/15/2024 1:00 PM EDT As noted documented in this [facility]07-03-2025 History of Present illness Narrative* Chapin Roman [...] and oriented. Pleasant disposition. Independently ambulatory. Wearing interior horticulturist shoes Vascular: DP 1/4 bilateral. PT faintly [...] understanding. Chapin Roman DPM documented in this [facility]07-03-2025 Instructions* Patient Instructions* Chapin Roman DPM - 12/02/2024 1:30 PM EDT As noted documented in this [facility]01-29-2025 History of Present illness Narrative* Chapin Roman [...] and oriented. Pleasant disposition. Independently ambulatory. Wearing interior horticulturist shoes Vascular: DP 1/4 bilateral. PT faintly [...] understanding. Chapin Roman DPM documented in this encounterNorth Kansas City HospitalIcpzutesfb36-42-7779 History of Present illness Narrative* Ale Cam NP - 04/22/2024 2:02 PM ESTAssociated Problem(s): Suspected chronic obstructive pulmonary disease based on initial evaluation ([facility]) Current 1 ppd smoker Has been smoking [...] List Items Addressed This Visit HTN (hypertension) ([facility]) Currently taking amlodipine Spironolactone Lasix Does not Check BP at home; BP is good in the office today. Denies orthostatic changes, dizziness, cough, shortness of breath, swelling in extremities. Continue current regimen. Given BP log, advised pt to record BP and bring log back with them to next visit. Alcoholic cirrhosis of liver without ascites ([facility]) - Primary Is currently still drinking; States he has only drank 3-4 times this month. Is starting to decreaseintake. Drinks Vodka mixed with cranberry juice or Powerade. Declines interest ion quitting at this time. Educated on hazardous health effects of chronic health issues. Suspected chronic obstructive pulmonary disease based on initial evaluation ([facility]) Current 1 ppd smoker Has been smoking [...] HFA) 90 mcg/act inhaler documented in this encounterNorth Kansas City HospitalWeukmdcqyk48-91-8128 History of Present illness Narrative* Chapin Roman [...] 90 tablet, Rfl: 1 Vitamin D, Ergocalciferol, 43759 units capsule, Take 1 capsule by mouth [...] and oriented. Pleasant disposition. Independently ambulatory. Wearing interior horticulturist shoes Vascular: DP 1/4 bilateral. PT faintly [...] understanding. Chapin Roman DPM documented in this [facility]10-02-2024 Instructions* Patient Instructions* Chapin Roman DPM - 03/03/2024 2:15 PM EDT As noted documented in this [facility]08-24-2024 History of Present illness Narrative* Ale Cam [...] List Items Addressed This Visit HTN (hypertension) ([facility]) - Primary looks good today in the [...] (Rocaltrol) 0.25 MCG capsule Vitamin D, Ergocalciferol, 79600 units capsule Alcoholic cirrhosis of liver without [...] less than 6 months. documented in this encounterNorth Kansas City HospitalIrixscafgw85-02-2383 Instructions* Patient Instructions* Ale Cam NP - [...] if you need anything! documented in this encounterNorth Kansas City HospitalPyfqxrmmba01-99-3187 Procedure noteFirCleveland Clinic Medina HospitalEvaluation noteNo assessment information available [facility] Work Phone: Evaluation note* Diagnosis Dermatophytosis of nail- Primary Dystrophic nail Other specified disease of nail Pain around toenail, right foot Pain around toenail, left foot documented in this encounter [facility] HealthcareEvaluation note* Diagnosis Primary hypertension (CMS/HCC)- Primary [...] initial evaluation (CMS/HCC) documented in this encounter [facility] HealthcareEvaluation note* Diagnosis Primary hypertension (CMS/HCC)- Primary Unspecified essential hypertension Vitamin D deficiency Alcohol use disorder Hypokalemia Hypopotassemia Alcoholic cirrhosis of liver without ascites (CMS/HCC) Strain of lumbar region, initial encounter documented in this encounter [facility] HealthcareEvaluation note* Diagnosis Primary hypertension (CMS/HCC)- Primary [...] toenail, left foot documented in this encounter [facility] HealthcareEvaluation note* Diagnosis Primary hypertension (CMS/HCC)- Primary [...] Difficulty in walking documented in this encounter [facility] HealthcareEvaluation note* Diagnosis Onset Date Resolution Status Admit Date Cirrhosis of liver acuteSept2024 9:54amColon polypsacuteSept2024 9:54amHTN (hypertension)acuteSept2024 9:54amHypokalemiaacuteSept2024 9:54amTobacco abuseacuteSept2024 9:54am [facility] Work Phone: Evaluation note* Diagnosis Primary [...] HealthcareHistory and physical note Author Ena Whaley [facility] August 26, 2023 10:09amNote Date/TimeMar2023 10:09[place] [address] Gastroenterology H&P Signed Patient: Rhoda Tapia MR#: [id number] 519 : 1950 Acct:[id number] Age/Sex: 73 / M Adm Date: 4 Loc: Room: Type: [facility] Attending Dr: Ena Whaley MD [...] signed by Ena Whaley MD> 08/26/23 1009 [facility] Work Phone: Hospital Discharge instructions [...] NOT operate machinery such as power tools, [employer] mowers, snow Sling Mediawers, sewing machines, etc. for 24 hours. - [...] years. -Follow up with PCP. -Office number [phone]. [facility] Work Phone: Reason for referral (narrative)No reason for referral information availableBethesda North Hospital Work Phone: Chief Complaint and Reason [...] Whaley MD Attending Provider, Other Provider Act haliey Start: August 26, 2023 NON STAFFPrimary Care ProviderActiveStart: August 26, 2023 Team MemberRelationshipSpecialtyStart DateEnd Date Jose Raul Valenzuela MD [address] [place] [address] PCP - Generalmily Medicine01/05/24 Ale Cam NP [address] [place] [address] Nurse PractitionerGroton Community Hospital Medicine01/05/24Team MemberRelationshipSpecialtyStart DateEnd Date Jose Raul Valenzuela MD [address] [place] [address] PCP - GeneralFamily Medicine01/05/24 Ale Cam NP [address] [place] [address] Nurse Practitionermily Medicine01/05/24Team MemberRelationshipSpecialtyStart DateEnd Date Jose Raul Valenzuela MD [address] [place] [address] PCP - GeneralFamily Medicine01/05/24 Ale Cam NP [address] [place] [address] Nurse PractitionerGro[facility] Hospital Medicine01/05/24Team MemberRelationshipSpecialtyStart DateEnd Date Jose Raul Valenzuela MD [address] [place] [address] PCP - GeneralGroton Community Hospital Medicine01/05/24 Ale Cam, TYLER [address] [place] [address] Nurse Pract[facility]erM[facility]01/05/24Team MemberRelationshipSpecialtyStart DateEnd Date Jose Raul Valenzuela MD [address] [place] [address] PCP - GeneralMountain Lakes [facility] Center01/05/24 Ale Cam, TYLER [address] [place] [address] Nurse PractitionerMountain Lakes Medical Center01/05/24Team MemberRelationshipSpecialtyStart DateEnd Date Jose Raul Valenzuela MD [address] [place] [address] PCP - [facility]01/05/24 Ale Cam NP [address] [place] [address] [facility]01/05/24Team MemberRelationshipSpecialtyStart DateEnd Date Jose Raul Valenzuela MD [address] [place] [phone] [facility] - [facility] Ale Cam NP [address] [place] [address] [facility]01/05/24Team MemberRelationshipSpecialtyStart DateEnd Date Jose Raul Valenzuela MD [address] [place] [phone] PCP - [facility]01/05/24 Ale Cam NP [address] [place] [address] [facility]01/05/24Team MemberRelationshipSpecialtyStart DateEnd Date Jose Raul Valenzuela MD [address] [place] [phone] P[facility] - [facility]01/05/24 Ale Cam NP [address] [place] [address] [facility]01/05/24 Team Status: Active Member Role [...] section and content) DATE CREATED AUTHOR 08/29/2023 [facility] DATE CREATED AUTHOR AUTHOR'S ORGANIZ ATION 04/07/2025 [facility] EPIC Reason for Visit (unrecogniz [...] BE BASED ON THE PRIMARY CLINICAL RECORDS. [facility] [employer] provides no warranty or guarantee of the accuracy or completeness of information in this document.
--- NOTE | 2025-04-19 07:42 | US_ITS ---
The [address] [address] Patient Name: RHODA RIVAS MRN: [id number] date: 1950 Sex: M Assigned Patient Location: US Current Patient Location: Accession/Order Number: [id number] Exam Date: 04/19/2025 07:43 Report Date: 04/19/2025 11:44 At the request of: DENISHA MATA DO Procedure: US right upper quadrant LIMITED RIGHT UPPER QUADRANT ABDOMINAL ULTRASOUND CLINICAL HISTORY: Elevated Liver Function Test, Hepatic Cirrhosis COMPARISON: 07/01/2023 The gallbladder is contracted and the wall is thickened. No definite shadowing gallstones or pericholecystic fluid are seen. No intra- or extrahepatic biliary dilatation is evident. The common duct measures 2 mm. The liver has heterogeneous echogenicity and nodular contour. A hyperechoic nodular area is present within the right lobe measuring 9 x 9 x 14 mm. This might be hemangioma. The appearance is not typical for hepatocellular carcinoma however given the presence of cirrhosis, follow-up is still suggested. There is no color flow at the main portal vein raising concern for thrombosis. The pancreas shows no significant sonographic abnormality. Cursory evaluation of the right kidney reveals no hydronephrosis or fluid within De's pouch. US/US right upper quadrant IMPRESSION: CIRRHOTIC LIVER WITH HYPERECHOIC NODULE, DESCRIBED. MRI FOLLOW-UP COULD BE CONSIDERED. SUSPECTED PORTAL VEIN THROMBOSIS. CONTRACTED GALLBLADDER, WITHOUT OBVIOUS CHOLELITHIASIS. Impression dictated by: Raiza Sam M.D. 04/19/2025 11:44 AM Dictation Location: [place] [address] Electronically authenticated by: [id number] Y Date: 04/19/2025 11:44
== END 2025-04-19 07:34 | disposition home or self-care (01) ==
LOC: US 07:34
PROVIDERS: PCP Family Medicine; Visit Provider Family Medicine
DX: R79.89 Other specified abnormal findings of blood chemistry (principal); K70.30 Alcoholic cirrhosis of liver without ascites
CPT/HCPCS: 76705